=== PATIENT | female | born 1955 | race Caucasian/White ===

== ENCOUNTER 2020-06-23 18:02 | Emergency (ER) | payer MEDICARE, MEDICAID, SELFPAY ==
[2020-06-23 18:47] VITALS: BP 154/66; PULSE 76; RESP 16; TEMP 37.1; O2SAT 98; BMI 30.2
--- NOTE | 2020-06-23 19:07 | ED.WOUNDLAC ---
HPI - Wound/Laceration General Chief Complaint: Wound/Laceration Stated Complaint: finger laceration Time Seen by Provider: 06/23/20 19:00 Source: patient Mode of arrival: ambulatory Limitations: no limitations History of Present Illness HPI narrative: patient presents to ED for left index finger laceration due to a knife that occurred around 14:30 this afternoon. Patient states she is not up-to-date with tetanus. Patient denies any decreased movement of left index finger. Patient also denies any numbness/ tingling. Related Data Previous Rx's Medication Instructions Recorded clindamycin HCl 300 mg PO Q8H #30 cap 06/23/20 ibuprofen 400 mg PO Q6H PRN #28 tab 06/23/20 Allergies Allergy/AdvReac Type Severity Reaction Status Date / Time metformin [METFORMIN] Allergy Intermediate DIARRHEA, Unverified 05/03/20 16:12 NAUSEA, diarrhea, diarrhea Penicillins [PENICILLINS] Allergy Intermediate RASH Unverified 05/03/20 16:12 acetaminophen [Percocet] Allergy Unknown rash Verified 03/22/20 00:00 canagliflozin [Invokana] Allergy Unknown rash Verified 04/12/20 00:00 oxycodone Allergy Unknown rash Verified 04/12/20 00:00 penicillin V Allergy Unknown rash Unverified 04/12/20 00:00 Review of Systems Review of Systems: Yes all other systems are reviewed and are negative Constitutional: Constitutional: Reports as per HPI and Reports no additional constitutional complaints Eyes: Eyes: Reports as per HPI and Reports no additional eye complaints ENT: Reports system reviewed and no additional complaints, except as documented and Reports as per HPI Cardiovascular: Cardiovascular: Reports as per HPI and Reports no additional cardiovascular complaints Respiratory: Respiratory: Reports as per HPI and Reports no additional respiratory complaints Gastrointestinal: Gastrointestinal: Reports as per HPI and Reports no additional gastrointestinal complaints Genitourinary: Genitourinary: Reports no additional female genitourinary complaints and Reports as per HPI Musculoskeletal: Musculoskeletal: Reports no additional musculoskeletal complaints and Reports as per HPI Comments: Index laceration Neurologic: Reports system reviewed and no additional complaints, except as documented and Reports as per HPI Psychiatric: Psychiatric: Reports no additional psychiatric complaints and Reports as per HPI PMF Past Medical History Medical History (Updated 06/23/20 @ 19:17 by DANAE Stubbs) Anxiety Depression Diabetes HTN (hypertension) Social History Social History Alcohol intake: never Smoking Status: Current every day smoker Use of substances other than those prescribed or required for medical reasons: No Advance Directives: No Advance Directives Information Provided: Yes Physical Exam Vital Signs: Vital Signs: Last Vital Signs Temp 98.7 F 06/23/20 18:47 Pulse 76 06/23/20 18:47 Resp 16 06/23/20 18:47 BP 154/66 H 06/23/20 18:47 Pulse Ox 98 06/23/20 18:47 Body Mass Index 30.2 Const: General: cooperative, healthy appearing, comfortable, no acute distress, well developed, alert and awake Orientation/consciousness: patient oriented x3 HENMT: Head: Yes normal to inspection, Yes No palpable skull fracture present and Yes atraumatic Eyes: General: appearance normal, both eyes and all related structures Visual Stock: normal visual stock by confrontation Neck: Neck: Yes normal visual inspection and Yes full ROM Chest: Chest palpation & inspection: normal inspection of the chest, normal palpation of entire chest wall and no localized rib tenderness Resp: Effort & Inspection: normal respiratory effort and able to speak in complete sentences Cardio: Jugular venous distension: no JVD Heart sounds: S1 normal heart sound present and S2 normal heart sound present GI: Inspection: Yes normal to inspection and No abdominal wall ecchymosis : General: No CVA tenderness and Yes no CVA tenderness Back/Spine/Pelvis: Back: no CVA tenderness, No CVA tenderness and No back tenderness Skin: Trauma: laceration ( left index finger) Neuro: General: patient oriented x3, gait normal and CN's II-XI intact bilaterally Cranial nerves: Yes CN's II-XII intact bilaterally Extrem: Other: left index finger laceration on lateral aspect of finger. Laceration consist of skin in the middle denies that is friable and does not need to be repaired. Patient has complete flexion and extension of left index finger. Capillary refills intact. Radial pulse intact. Rest of fingers and upper extremity of left-sided motor/ neuro/ vascular exam is intact. No other signs of trauma on whole body. General: Yes normal to inspection and Yes full ROM Course Course Course Narrative: Patient will have tetanus and Motrin ordered. Laceration repair not indicated. Steri-Strips will be placed. Reevaluation(s) Reevaluation #1: Steri-Strips placed after wound was clean. Patient will be discharged with antibiotics due to her being diabetic to prevent infection. Time: 19:15 MDM - Wound/Laceration MDM Narrative Medical decision making narrative: laceration of left index finger. Negative any tendon injury. Negative for any nerve injury Discharge Plan Discharge Clinical Impression: Laceration Patient Disposition: Home, Self-Care Instructions: Laceration Without Closure (ED) Additional Instructions: return the ED for any swelling, redness, numbness/ tingling, inability to move finger, development of red streaks, bluish discoloration of finger, or any other concerning symptom. Prescriptions: New clindamycin HCl 300 mg capsule 300 mg PO Q8H Qty: 30 RF: 0 ibuprofen 400 mg tablet 400 mg PO Q6H PRN (Reason: pain) Qty: 28 RF: 0 Referrals: Esau Cuellar PA-C [Primary Care Provider] - 2 days (Left finger laceration. no repair indicated.) Interventions: ED Discharge Assessment Last Done: 06/23/20 19:55 Discharge Date/Time: 06/23/20 20:03 Print Language: Upper Sorbian
[2020-06-23] MEDS: Ibuprofen 800 MG TABLET PO (19:48)
== END 2020-06-23 20:03 | disposition home or self-care (01) ==
PROVIDERS: Emergency Provider Emergency Medicine; PCP Physician Assistant
DX: S61.211A Laceration without foreign body of left index finger without damage to nail, initial encounter (principal); S60.411A Abrasion of left index finger, initial encounter; M79.645 Pain in left finger(s); W26.0XXA Contact with knife, initial encounter; Y93.9 Activity, unspecified; Y99.9 Unspecified external cause status; Y92.000 Kitchen of unspecified non-institutional (private) residence as the place of occurrence of the external cause; F17.200 Nicotine dependence, unspecified, uncomplicated; Z71.6 Tobacco abuse counseling; Z79.899 Other long term (current) drug therapy; Z23 Encounter for immunization
CPT/HCPCS: 90471; 90715; 99284

== ENCOUNTER → 2020-07-18 09:50 | Outpatient (BNVA) | payer MEDICARE, MEDICAID, SELFPAY | PROVIDERS: PCP Physician Assistant; Referring Provider Physician Assistant; Visit Provider Internal Medicine Endocrinology, Diabetes & Metabolism | DX: Z13.89 Encounter for screening for other disorder (principal) | CPT/HCPCS: Q3014 ==

== ENCOUNTER 2020-08-03 10:01 | Day surgery (SDC) | payer MEDICARE, MEDICAID, SELFPAY ==
[2020-07-27 19:20] VITALS: BMI 29.6
--- NOTE | 2020-08-02 10:10 | P.CONAN_ITS ---
Documented by User: Lidia Harding 08/02/20 10:11 HPI - Anesthesia Eval Consult details Narrative: 65yo F for Genicular Nerve [facility]ulation [facility] Past Medical History Medical History Anxiety Arthritis Asthma Back pain Depression Diabetes Diabetes type 2, uncontrolled Dyslipidemia HTN (hypertension) Obesity (BMI 30-39.9) Vitamin D deficiency Surgical History Surgical History H/O left knee surgery H/O tubal ligation History of colonoscopy Social History Social History Alcohol intake: never Smoking Status: Current every day smoker Packs Per Day: 0.5 Cigarettes Per Day: 10.0 Years Smoked: 46 Smoked in Last 30 Days: Yes Patient Interested in Nicotine Replacement: No Patient Given Instructions on How to Stop Smoking: No (patient not interested) Advance Directives: Yes Advance Directives Information Provided: Yes Advance Directives on File: Yes Advance Directives Date on File: 09/18/17 Meds Allergies Allergy/AdvReac Type Severity Reaction Status Date / Time metformin [METFORMIN] Allergy Intermediate DIARRHEA, Verified 07/27/20 19:12 NAUSEA, diarrhea, diarrhea Penicillins [PENICILLINS] Allergy Intermediate RASH Verified 07/27/20 19:12 canagliflozin [Invokana] Allergy Unknown rash Verified 07/27/20 19:12 Home Medications Medication Instructions Recorded Confirmed Type clonazepam 0.5 mg tablet 0.5 mg PO BID 07/18/20 07/27/20 History escitalopram oxalate 20 mg tablet 20 mg PO DAILY 07/18/20 07/27/20 History hydroxyzine HCl 50 mg tablet 50 mg PO DAILY 07/18/20 07/27/20 History naproxen 500 mg tablet 500 mg PO BID PRN 07/18/20 07/27/20 History pantoprazole 20 mg tablet,delayed 20 mg PO DAILY 07/18/20 07/27/20 History release pen needle, diabetic 32 gauge x #50 ea 07/18/20 07/27/20 History trazodone 100 mg tablet 100 mg PO DAILY 07/18/20 07/27/20 History liraglutide [Victoza 2-Willy] 1.2 mg SUBCUT DAILY 07/27/20 07/27/20 History Exam Exam Date and Time: August 02, 2020 1010 Height,Weight and Vital Signs: Height 5 ft 2 in Weight 73.482 kg Assessment and Plan Assessment Anesthesia Assessment: Chart Reviewed Documented by User: Madeleine Perez 08/03/20 10:51 [facility] Past Medical History Medical History Anxiety Arthritis Asthma Back pain Depression Diabetes Diabetes type 2, uncontrolled Dyslipidemia HTN (hypertension) Obesity (BMI 30-39.9) Vitamin D deficiency Surgical History Surgical History H/O left knee surgery H/O tubal ligation History of colonoscopy Social History Social History Alcohol intake: never Smoking Status: Current every day smoker Packs Per Day: 0.5 Cigarettes Per Day: 10.0 Years Smoked: 46 Smoked in Last 30 Days: Yes Patient Interested in Nicotine Replacement: No Patient Given Instructions on How to Stop Smoking: No (patient not interested) Advance Directives: Yes Advance Directives Information Provided: Yes Advance Directives on File: Yes Advance Directives Date on File: 09/18/17 Meds Allergies Allergy/AdvReac Type Severity Reaction Status Date / Time metformin [METFORMIN] Allergy Intermediate DIARRHEA, Verified 07/27/20 19:12 NAUSEA, diarrhea, diarrhea Penicillins [PENICILLINS] Allergy Intermediate RASH Verified 07/27/20 19:12 canagliflozin [Invokana] Allergy Unknown rash Verified 07/27/20 19:12 Home Medications Medication Instructions Recorded Confirmed Type clonazepam 0.5 mg tablet 0.5 mg PO BID 07/18/20 07/27/20 History escitalopram oxalate 20 mg tablet 20 mg PO DAILY 07/18/20 07/27/20 History hydroxyzine HCl 50 mg tablet 50 mg PO DAILY 07/18/20 07/27/20 History naproxen 500 mg tablet 500 mg PO BID PRN 07/18/20 07/27/20 History pantoprazole 20 mg tablet,delayed 20 mg PO DAILY 07/18/20 07/27/20 History release pen needle, diabetic 32 gauge x #50 ea 07/18/20 07/27/20 History trazodone 100 mg tablet 100 mg PO DAILY 07/18/20 07/27/20 History liraglutide [Victoza 2-Willy] 1.2 mg SUBCUT DAILY 07/27/20 07/27/20 History Exam Airway Mallampati Class: II TM Dist: >3cm Neck ROM: Full Denture: Upper and Lower
--- NOTE | 2020-08-03 07:17 | PM.OP ---
Brief Operative Note Date of Service: 08/03/20 Pre-op diagnosis: knee osteoarthritis Post-op diagnosis: same Procedure: trial of peripheral nerve stimulation stimwave infrapatellar saphenous nerve Implants: temp implant of the stimwave trial lead. Surgeon: Ashok Monahan MD Anesthesia: MAC Estimated blood loss (mL): 1 Pathology: none sent Condition: stable Disposition: PACU
--- NOTE | 2020-08-03 07:18 | P.HPSUR_ITS ---
Pre-Procedural Eval Section A The patient is an INPATIENT: No The History & Physical has been completed within 30 days and I have reviewed it.: No Section B Chief Complaint: Osteoarthritis of Left Knee Details of Present Illness: knee osteoarthritis left Relevant Family History (Specify if Yes): No Relevant Social History: None Present Medications: None Medical History: No relevant PMH History of Previous Operations: Relevant previous surgery/procedure and date(s) Allergies: Allergies Allergy/AdvReac Type Severity Reaction Status Date / Time metformin [METFORMIN] Allergy Intermediate DIARRHEA, Verified 07/27/20 19:12 NAUSEA, diarrhea, diarrhea Penicillins [PENICILLINS] Allergy Intermediate RASH Verified 07/27/20 19:12 acetaminophen [Percocet] Allergy Unknown rash Verified 07/27/20 19:12 canagliflozin [Invokana] Allergy Unknown rash Verified 07/27/20 19:12 Review of Systems Sugical H&P ROS: Negative: Cardiovascular, Respiratory, Neurological, Psychiat sapna, Hem-Onc, Allergic/Immunologic, Gastrointestinal, Genitourinary, Musculoskeletal, Integumentary, Endocrine and Eyes/Ears/Nose/Throat and Yes, Specify: Constitution (obesity) Exam Surgical H&P Exam: Normal: HEENT, Normal: Heart, Normal: Lungs, Normal: Extremities, Normal: Abdomen, Normal: Skin and Normal: Neurological Plan Diagnosis/Plan: Unchanged I have reviewed the history and physical and performed a pertinent physical examination on my patient. No changes have occurred unless specified.
--- NOTE | 2020-08-03 07:39 | P.OP_ITS ---
Operative Note Operative Note Date of Service: 08/03/20 Narrative: The patient came to the operating room after obtaining inform consent. The consent was obtained delineating risks of bleeding, infection and allergic reactions. The patient recieve antibiotic approximately 30 minutes before the procedure. Time-out was performed delineating correct site, side, the nature of the procedure, patient's allergy, preoperative antibiotic. All operating room staff was participating in OR time-out procedure. The patient was positioned supine on OR table. ASA monitors were applied and the patient was sedated. Patient's entire left leg was prepped with ChloraPrep twice and draped with extremity drape with isolation applied to the foot. Sterilely draped C-arm was brought over operating field and the picture of the tibial bone was demonstrated on the screen. The point of interest was delineated as the transition zone from the medial margin of tibial diaphysis to methaphysis on the AP projection of the C-arm screen. 22g 3.5 inch needle was inserted through the skin after the wheal of loc al anesthetic was injected into the skin's projection of the target. The needle was advanced forward until it gently contacted the bone. The C-arm position was switched to the lateral view and the needle position was adjusted to be in the mid-shaft of the bone. after that the attention was concentrated on the mid-calf area where on the medial side of the calf the local anesthetic injection was mad e in the projection of the center of the diaphysis on AP view and mid-shaft of the diaphysis on the lateral view. A stephanie was made to the skin with 11 blase scalpel and through this stephanie 13 g introducer needle was inserted and advanced alongside of the bone's mid- shaft in cefalad direction until the introducer needle went into the contact with the 22 g 3.5 inch needle inserted previously. throught the introducer needle the stimulating electrode was inserted into the introducer needle and advanced further alongside the medial margin of the tibia on AP view. The care was taken to keep the electrode in the midshaft position. after the electrode was found to be in satisfactory position the 22G 3.5 inch needle was removed, the introducer needle was withdrawn with the electrode held in place under x-ray control. After that the antenna copper wire was inserted into the electrode. The sterie strips and mastisol were used to fix the wire to the skin. The care was taken to position of the external part of the electrode on the side the patient's medial calf in straight cefalad caudad direction and the knot was made at the distal part of the electrode fixing the copper wire inside the electrode. sterile dressing was applied and stimulating pad was applied over the electrode's outside part. .
[2020-08-03 10:09] VITALS: BMI 29.6
[2020-08-03 10:15] VITALS: BP 152/77; PULSE 81; RESP 16; TEMP 36.7; O2SAT 98
[2020-08-03] MEDS: Lactated Ringers 1,000 ML 100 ML IVCONT (10:24)
[2020-08-03 10:30] LABS: Glucose, Whole Blood 98 mg/dL (60-115)
[2020-08-03] MEDS: Clindamycin Phosphate/D5W 900 MG/50 ML PIGGYBACK 50 MG IV (11:03)
--- NOTE | 2020-08-03 11:09 | FL_ITS ---
EXAMINATION: XR FLUOROSCOPY WITH IMAGES CLINICAL INFORMATION: Genicular nerve stimulation trial. COMPARISON: None. TECHNIQUE: Fluoroscopy performed by Dr. Ashok Monahan. Fluoroscopy time: 0.4 minutes DAP: 1.63 mGycm2 Images: 3 FINDINGS: 3 images demonstrate a needle and the catheter on the medial aspect of the left tibial metaphyseal region. FL/FL guidance in OR IMPRESSION: Fluoroscopy and spot films provided during a trial of genicular nerve stimulation.
[2020-08-03 12:31] VITALS: BP 115/70; PULSE 96; RESP 14; TEMP 36.6; O2SAT 100
[2020-08-03 12:46] VITALS: BP 150/72; PULSE 93; RESP 18; O2SAT 97
--- NOTE | 2020-08-03 13:19 | HO.POSTANES ---
Post Anesthesia Evaluation Post Anesthesia Evaluation Vital Signs: Vital Signs Temp Pulse Resp BP Pulse Ox 08/03/20 12:46 97.9 F 93 18 150/72 H 97 08/03/20 12:31 97.9 F 96 14 115/70 100 08/03/20 10:15 98.0 F 81 16 152/77 H 98 Anesthesia: Monitored Mental Status: Awake Pain Control: Satisfactory Nausea/Vomiting: None Hydration: Adequate Anesthesia-Related Issues: No Anes. Related Issues
== END 2020-08-03 13:23 | disposition home or self-care (01) ==
PROVIDERS: PCP Physician Assistant; Visit Provider Anesthesiology
PROC: (CPT 64555; principal; 2020-08-03 12:00)
DX: M17.12 Unilateral primary osteoarthritis, left knee (principal); G89.4 Chronic pain syndrome; M25.562 Pain in left knee; Z96.652 Presence of left artificial knee joint; F32.9 Major depressive disorder, single episode, unspecified; J45.909 Unspecified asthma, uncomplicated; E11.65 Type 2 diabetes mellitus with hyperglycemia; I12.9 Hypertensive chronic kidney disease with stage 1 through stage 4 chronic kidney disease, or unspecified chronic kidney disease; E11.22 Type 2 diabetes mellitus with diabetic chronic kidney disease; N18.9 Chronic kidney disease, unspecified; F17.210 Nicotine dependence, cigarettes, uncomplicated; Z79.84 Long term (current) use of oral hypoglycemic drugs; Z79.899 Other long term (current) drug therapy; Z88.1 Allergy status to other antibiotic agents; Z88.8 Allergy status to other drugs, medicaments and biological substances
CPT/HCPCS: 64555; 82947; C1755; C1897; J2250; J3010

== ENCOUNTER → 2020-08-08 09:20 | Outpatient (BNVA) | payer MEDICARE, MEDICAID, SELFPAY | PROVIDERS: PCP Physician Assistant; Visit Provider Anesthesiology | DX: T84.84XD Pain due to internal orthopedic prosthetic devices, implants and grafts, subsequent encounter (principal); G89.29 Other chronic pain; Z96.652 Presence of left artificial knee joint; E11.65 Type 2 diabetes mellitus with hyperglycemia; E55.9 Vitamin D deficiency, unspecified | CPT/HCPCS: 36415; 80053; 80061; 82043; 82306; 82607; 82985; 83036; 83721; 85027; 99212 ==

== ENCOUNTER 2020-08-08 09:52 | Outpatient (REF) | payer MEDICARE, MEDICAID, SELFPAY ==
[2020-08-08 13:33] LABS: Hematocrit 41.9 % (37-47); Hemoglobin 13.8 g/dl (12.0-16.0); Mean Corpuscular HGB Conc 32.9 g/dl (31.0-35.0); Mean Corpuscular Hemoglobin 29.7 pg (27.0-33.0); Mean Corpuscular Volume 90.3 fL (80-98); Mean Platelet Volume 11.7 fL (9.4-12.3); Platelet Count 227 X10*3/uL (160-400); Red Blood Count 4.64 X10*6/uL (4.20-5.50); Red Cell Distribution Width 12.6 % (11.0-16.0); White Blood Count 10.3 X10*3/uL (4.8-10.8)
[2020-08-08 13:40] LABS: Estimated Average Glucose 120 mg/dL; Hemoglobin A1c % 5.8 %
[2020-08-08 14:33] LABS: Alanine Aminotransferase 22 U/L (0-31); Albumin Level 4.3 g/dL (3.5-5.0); Alkaline Phosphatase 125 U/L (39-117); Anion Gap 15 (12-20); Aspartate Amino Transferase 20 U/L (5-31); Bilirubin Total 0.5 mg/dL (0.0-1.0); Blood Urea Nitrogen 12 mg/dL (9-16); Calcium 9.4 mg/dL (8.4-10.2); Carbon Dioxide 24 mmol/L (22-29); Chloride 105 mmol/L (96-108); Cholesterol 139 mg/dL; Estimated Glomerular Filt Rate 47; Glucose Fasting 107 mg/dL (60-99); HDL Cholesterol 39 mg/dL; LDL Cholesterol Calculated 76 mg/dl; Potassium 3.8 mmol/l (3.3-5.1); Sodium 140 mmol/L (135-145); Total Protein 7.1 g/dL (6.5-8.0); Triglycerides 124 mg/dL
[2020-08-08 14:42] LABS: Vitamin B12 495 pg/mL (200-900)
[2020-08-08 14:51] LABS: Creatinine Urine 322.46 mg/dL; Microalbum/Creatinine Ratio Ur 38.7 ug/mg cr
[2020-08-08 14:58] LABS: Vitamin D 25-OH Total 60.1 ng/mL (>30)
[2020-08-09 11:18] LABS: LDL Cholesterol Direct 82 mg/dL (<100)
[2020-08-17 06:18] LABS: Fructosamine 240 umol/L (205-285)
== END 2020-08-08 09:53 | disposition home or self-care (01) ==
LOC: HO.10HDL 09:52
PROVIDERS: Visit Provider Internal Medicine Endocrinology, Diabetes & Metabolism
DX: Z13.89 Encounter for screening for other disorder (principal)
CPT/HCPCS: 36415; 80053; 80061; 82043; 82306; 82607; 82985; 83036; 83721; 85027

== ENCOUNTER 2020-11-09 06:14 | Day surgery (SDC) | payer MEDICARE, MEDICAID, SELFPAY ==
[2020-11-02 11:49] VITALS: BMI 31.1
--- NOTE | 2020-11-08 12:10 | HO.ANESPROP2 ---
Documented by User: Lidia Barnettney 11/08/20 12:11 HPI - Anesthesia Eval Consult details Narrative: 65yo F for Left Infrapatellar Saphenous Nerve Stimulation Implant s/p Genicular Nerve Stim Trial with MAC 07/2020 [facility] Active Problems Active Problems: All Active Problems (Updated 11/02/20 @ 11:48 by Niki Ibarra) EVA (generalized anxiety disorder) (Acute) Smoking (Acute) Screening for colon cancer (Acute) Contact dermatitis (Acute) Allergic reaction (Acute) Chronic 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 (Acute) Chronic pain of left knee (Acute) Osteoarthritis of knees, bilateral (Acute) Obesity (BMI 30-39.9) (Acute) Vitamin D deficiency (Acute) HTN (hypertension) (Acute) Dyslipidemia (Acute) Diabetes type 2, uncontrolled (Acute) Past Medical History Medical History Anxiety Arthritis Asthma Back pain Chronic 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 Chronic pain of left knee Depression Diabetes type 2, uncontrolled Dyslipidemia HTN (hypertension) Obesity (BMI 30-39.9) Osteoarthritis of knees, bilateral Vitamin D deficiency Family History Family History Father Automobile accident Mother Hypertension Hyperlipidemia Diabetes Brother Diabetes Hyperlipidemia Sister Diabetes Hyperlipidemia Surgical History Surgical History H/O tubal ligation History of colonoscopy History of ear surgery History of hysterectomy History of surgery on wrist S/P total knee arthroplasty Social History Social History Alcohol intake: never Smoking Status: Current every day smoker Packs Per Day: 0.5 Cigarettes Per Day: 10 Years Smoked: 49 Use of substances other than those prescribed or required for medical reasons: No Advance Directives: No Advance Directives Information Provided: No Advance Directives on File: No Advance Directives Date on File: 09/18/17 Meds Allergies Allergy/AdvReac Type Severity Reaction Status Date / Time metformin [METFORMIN] Allergy Intermediate DIARRHEA, Verified 11/02/20 11:40 NAUSEA Penicillins [PENICILLINS] Allergy Intermediate RASH Verified 11/02/20 11:40 canagliflozin [Invokana] Allergy Unknown rash Verified 11/02/20 11:40 oxycodone Allergy Unknown Verified 11/08/20 11:43 Home Medications Medication Instructions Recorded Confirmed Last Taken Type clonazepam 0.5 mg tablet 0.5 mg PO BID 07/18/20 11/02/20 08/03/20 History escitalopram oxalate 20 mg tablet 20 mg PO DAILY 07/18/20 11/02/20 08/03/20 History pen needle, diabetic 32 gauge x #50 ea 07/18/20 09/06/20 08/03/20 History 5/32 trazodone 100 mg tablet 100 mg PO BEDTIME 07/18/20 11/02/20 08/03/20 History atorvastatin 40 mg PO BEDTIME 11/02/20 11/02/20 08/03/20 History liraglutide [Victoza 3-Willy] 1 mg SUBCUT DAILY 11/02/20 11/02/20 Unknown History naproxen 500 mg PO BID PRN 11/02/20 11/02/20 Unknown History blood sugar diagnostic #10 ea 11/08/20 Unknown History Exam Exam Date and Time: November 08, 2020 1210 Height,Weight and Vital Signs: Height 5 ft 2 in Weight 77.111 kg Pertinent Lab Results Pertinent Lab Results: Laboratory Tests 08/08/20 08/08/20 10:00 10:00 WBC 10.3 Hgb 13.8 Hct 41.9 Plt Count 227 Sodium 140 Potassium 3.8 Chloride 105 Carbon Dioxide 24 BUN 12 Creatinine 1.15 Assessment and Plan Assessment Anesthesia Assessment: Chart Reviewed Documented by User: Kevin Grigsby MD 11/09/20 07:31 [facility] Past Medical History Medical History Anxiety Arthritis Asthma Back pain Chronic 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 Chronic pain of left knee Depression Diabetes type 2, uncontrolled Dyslipidemia HTN (hypertension) Obesity (BMI 30-39.9) Osteoarthritis of knees, bilateral Vitamin D deficiency Family History Family History Father Automobile accident Mother Hypertension Hyperlipidemia Diabetes Brother Diabetes Hyperlipidemia Sister Diabetes Hyperlipidemia Surgical History Surgical History H/O tubal ligation History of colonoscopy History of ear surgery History of hysterectomy History of surgery on wrist S/P total knee arthroplasty Social History Social History Alcohol intake: never Smoking Status: Current every day smoker Packs Per Day: 0.5 Cigarettes Per Day: 10 Years Smoked: 49 Use of substances other than those prescribed or required for medical reasons: No Advance Directives: No Advance Directives Information Provided: No Advance Directives on File: No Advance Directives Date on File: 09/18/17 Meds Allergies Allergy/AdvReac Type Severity Reaction Status Date / Time metformin [METFORMIN] Allergy Intermediate DIARRHEA, Verified 11/02/20 11:40 NAUSEA Penicillins [PENICILLINS] Allergy Intermediate RASH Verified 11/02/20 11:40 canagliflozin [Invokana] Allergy Unknown rash Verified 11/02/20 11:40 oxycodone Allergy Unknown Verified 11/08/20 11:43 Home Medications Medication Instructions Recorded Confirmed Last Taken Type clonazepam 0.5 mg tablet 0.5 mg PO BID 07/18/20 11/02/20 08/03/20 History escitalopram oxalate 20 mg tablet 20 mg PO DAILY 07/18/20 11/02/20 08/03/20 History pen needle, diabetic 32 gauge x #50 ea 07/18/20 09/06/20 08/03/20 History trazodone 100 mg tablet 100 mg PO BEDTIME 07/18/20 11/02/20 08/03/20 History atorvastatin 40 mg PO BEDTIME 11/02/20 11/02/20 08/03/20 History liraglutide [Victoza 3-Willy] 1 mg SUBCUT DAILY 11/02/20 11/02/20 Unknown History naproxen 500 mg PO BID PRN 11/02/20 11/02/20 Unknown History blood sugar diagnostic #10 ea 11/08/20 Unknown History Exam Airway Mallampati Class: III TM Dist: >3cm Neck ROM: Full Loose/Missing/Broken Teeth: No Heart: RRR Lungs: NL Assessment and Plan Assessment Anesthesia Assessment: Anesthesia Plan Discussed and Chart Reviewed Final Anesthetic Review NPO: Yes ASA Class: III Final Preanesthetic Review: No Changes in Pt Med Stat, Meds/Allgs Chart Reviewed, Consent Obtained/Reviewed and Anes Risks/Benef Reviewed Patient Risk: Intermediate Procedure Risk: Low Anesthetic Plan Anesthetic Plan: MAC: Disposition: Standard PACU
--- NOTE | ~2020-11-09 | FL_ITS ---
EXAMINATION: XR FLUOROSCOPY WITH IMAGES CLINICAL INFORMATION: Left knee stimulator trial COMPARISON: Radiographs left knee 04/04/2019, radiographs left ankle 02/25/2018 TECHNIQUE: Fluoroscopy performed by Dr. Ashok Monahan. Fluoroscopy time: 0.4 minutes DAP: 1.22 Gycm2 Images: 1 FINDINGS: There may be some mild medial bowing of the distal fibular shaft. There is no visible fracture. Electrode lead seen overlying the medial soft tissues. FL/FL guidance in OR IMPRESSION: Fluoroscopy for pain management procedure.
[2020-11-09 06:22] VITALS: BP 131/68; PULSE 79; RESP 18; TEMP 36.6; O2SAT 99
[2020-11-09 06:23] LABS: Glucose, Whole Blood 130 mg/dL (60-115)
[2020-11-09] MEDS: Lactated Ringers 1,000 ML 100 ML IVCONT (06:46)
--- NOTE | 2020-11-09 07:30 | PM.OP ---
Brief Operative Note Date of Service: 11/09/20 Pre-op diagnosis: Artificial knee left, intractable knee pain in the left knee. Post-op diagnosis: same Procedure: Implantation of the stim wave peripheral nerve stimulation device in left infrapatellar saphenous nerve position Implants: Stim wave implant as above Surgeon: Ashok Monahan MD Anesthesia: MAC Estimated blood loss (mL): 10 Pathology: none sent Condition: stable Disposition: PACU
--- NOTE | 2020-11-09 07:32 | MHC.SHP ---
Pre-Procedural Eval Section B Chief Complaint: Presence of Left Artificial Knee Joint, Knee Pain Details of Present Illness: as above Relevant Family History (Specify if Yes): No Relevant Social History: None Present Medications: see Short Stay Collaborative assessment Medical History: No relevant PMH History of Previous Operations: Relevant previous surgery/procedure and date(s) Allergies: Allergies Allergy/AdvReac Type Severity Reaction Status Date / Time metformin [METFORMIN] Allergy Intermediate DIARRHEA, Verified 11/02/20 11:40 NAUSEA Penicillins [PENICILLINS] Allergy Intermediate RASH Verified 11/02/20 11:40 canagliflozin [Invokana] Allergy Unknown rash Verified 11/02/20 11:40 oxycodone Allergy Unknown Verified 11/08/20 11:43 Review of Systems Sugical H&P ROS: Negative: Constitution, Cardiovascular, Respiratory, Neurological, Psychiatric, Hem-Onc, Allergic/Immunologic, Gastrointestinal, Genitourinary, Musculoskeletal, Integumentary, Endocrine and Eyes/Ears/Nose/Throat Exam Surgical H&P Exam: Normal: HEENT, Normal: Heart, Normal: Lungs, Normal: Extremities, Normal: Abdomen, Normal: Skin and Normal: Neurological Plan Diagnosis/Plan: Unchanged I have reviewed the history and physical and performed a pertinent physical examination on my patient. No changes have occurred unless specified.
--- NOTE | 2020-11-09 09:08 | PM.OP ---
Brief Operative Note Date of Service: 11/09/20 Pre-op diagnosis: artificial knee left, intractable left knee pain. Post-op diagnosis: same Procedure: Implantation of the infrapatellar saphenous peripheral nerve stimulation device stim wave. Implants: Stim wave stimulating wire and plastic lead incasing it Surgeon: Ashok Monahan MD Anesthesia: MAC Estimated blood loss (mL): 10 Condition: stable Disposition: PACU
[2020-11-09 09:10] VITALS: BP 145/77; PULSE 75; RESP 16; TEMP 36.6; O2SAT 97
[2020-11-09 09:25] VITALS: BP 138/66; PULSE 67; RESP 16; TEMP 36.6; O2SAT 99
--- NOTE | 2020-11-12 08:04 | P.OP_ITS ---
Operative Note Operative Note Date of Service: 11/09/20 Narrative: Genicular nerve stimulation implant infrapatellar saphenous nerve stimulation. After obtaining informed consent patient was brought to the operating room, she was positioned supine on the operating table, [employer] monitors were applied and patient was deeply sedated. Time-out was performed delineating correct site, side, the nature of the procedure, patient's allergy, preoperative antibiotic. All operating room staff was participating in OR time-out procedure. The patient received clindamycin 900 mg intravenously 30 minutes before the procedure The patient was positioned supine on the operating table with left leg elevated on a gel bin. After appropriate level of sedation was obtained the patient's entire leg from the mid thigh all the way down to the toes was prepped with Chl oraPrep twice. The foot was protected with the sterile foot cover and after that fenestrated drape was applied to the leg. attention was concentrated on the left INFRAPATELLAR SAPHENOUS NERVE. Sterilely draped C-arm was brought over the operating field and sq picture of tibial bone was demonstrated on the screen. The point of interest was delineated as the connection between metaphysis and diaphysis of the medial site of the tibial bone. 22 gauge 3-1/2 inch needle was driven to the point of interest where the advancement of the medial line of the shaft of the tibial bone changed its direction and formed an angle. The position of the needle in the projection of mid shaft of the bone was verified on the lateral view. 8 cm below that needle in the projection of the medial shaft of the tibial bone local anesthetic was injected bupivacaine 0.5 % mixture with lidocaine 2% into the skin. 2 cm incision with 11 blade scalpel was made in the local anesthetic infiltrate. The insertion of the 14 gauge introducer was performed through the skin incision and advanced cephalad toward the projection of the 22 gauge needle in the plane corresponding to mid shaft of the tibial bone on lateral view and following silhouette of the medial tibial bone on the AP view. When the introducer reached the vicinity of 22 gauge needle guitar wire was inserted into the intro ducer needle and spread on anterior posterior and lateral views alongside the medial border of the tibial bone on anterior posterior view and in the projection of the mid shaft of the bone on the lateral view. Upon completion of the advancement of the guitar wire it was removed and permanent stimulator catheter was inserted and advanced in the same fashion. When the catheter reached adequate position following curvature of the medial metaphysis of the tibial bone on anterior posterior view and position in midline of the shaft of the tibial bone in lateral view the introducer was gently removed and thins of the stimulating catheter were freed. Another 8 cm below the 1st incision on the medial surface of the left lower leg above medial malleolar area another local anesthetic infiltrate was made and 3 cm incision was performed. The introducer was reassembled, inserted into the wound and advanced again cephalad in the projection of the mid shaft of the tibial bone until it reached the 1st incision. Care was taken to make sure that 1st and 2nd hernandez of the stimulating catheter were he had been under the skin. The copper stimulating wire was inserted into the catheter and a tie was made below the level of the 2nd marked. After that a coil was done below the knot in caudal was fixed with 2 0 silk sutures. The coil was imbedded under the skin and subcutaneous tissues and both wounds were irrigated with vancomycin containing irrigation solution. The wounds were closed using 3-0 Polysorb sutures and adriano were applied to the level of the skin. Sterile dressing was applied to both wounds and stimulating pad was applied to the area of the antenna of the device. The patient was awaken and moved outside of the operating room to the recovery room where she recovered uneventfully.
== END 2020-11-09 10:32 ==
LOC: HO.SSS 06:14
PROVIDERS: PCP Physician Assistant; Visit Provider Anesthesiology
PROC: (CPT 64555; principal; 2020-11-09 07:30)
DX: M25.562 Pain in left knee (principal); G89.4 Chronic pain syndrome; Z96.652 Presence of left artificial knee joint; J45.909 Unspecified asthma, uncomplicated; E11.9 Type 2 diabetes mellitus without complications; I10 Essential (primary) hypertension; Z79.84 Long term (current) use of oral hypoglycemic drugs; Z79.899 Other long term (current) drug therapy; Z88.0 Allergy status to penicillin; Z88.8 Allergy status to other drugs, medicaments and biological substances
CPT/HCPCS: 64555; 82947; C1816; C1897; J3010; J3370

== ENCOUNTER → 2020-11-15 11:12 | Outpatient (BNVA) | payer MEDICARE, MEDICAID, SELFPAY | PROVIDERS: PCP Physician Assistant; Visit Provider Anesthesiology | DX: M17.11 Unilateral primary osteoarthritis, right knee (principal); T84.84XA Pain due to internal orthopedic prosthetic devices, implants and grafts, initial encounter; G89.29 Other chronic pain; Z96.652 Presence of left artificial knee joint; Z79.899 Other long term (current) drug therapy | CPT/HCPCS: 99212 ==

== ENCOUNTER → 2020-11-22 11:58 | Outpatient (BNVA) | payer MEDICARE, MEDICAID, SELFPAY | PROVIDERS: PCP Physician Assistant; Visit Provider Anesthesiology | DX: M17.0 Bilateral primary osteoarthritis of knee (principal); M25.562 Pain in left knee; G89.29 Other chronic pain; Z96.652 Presence of left artificial knee joint | CPT/HCPCS: 99212 ==

== ENCOUNTER → 2020-11-29 11:33 | Outpatient (BNVA) | payer MEDICARE, MEDICAID, SELFPAY | PROVIDERS: PCP Physician Assistant; Visit Provider Anesthesiology | DX: M17.11 Unilateral primary osteoarthritis, right knee (principal); T84.84XA Pain due to internal orthopedic prosthetic devices, implants and grafts, initial encounter; G89.29 Other chronic pain; Z96.652 Presence of left artificial knee joint; Z79.899 Other long term (current) drug therapy | CPT/HCPCS: 99212 ==

== ENCOUNTER 2021-01-23 12:46 | Outpatient (REF) | payer MEDICARE, MEDICAID, SELFPAY ==
[2021-01-23 14:37] LABS: Hematocrit 37.3 % (37-47); Mean Corpuscular HGB Conc 32.2 g/dl (31.0-35.0); Mean Corpuscular Hemoglobin 28.7 pg (27.0-33.0); Mean Corpuscular Volume 89.2 fL (80-98); Mean Platelet Volume 10.3 fL (9.4-12.3); Platelet Count 233 X10*3/uL (160-400); Red Blood Count 4.18 X10*6/uL (4.20-5.50); Red Cell Distribution Width 13.3 % (11.0-16.0); White Blood Count 11.6 X10*3/uL (4.8-10.8)
[2021-01-23 16:10] LABS: Alanine Aminotransferase 14 U/L (0-31); Alkaline Phosphatase 123 U/L (39-117); Anion Gap 13 (12-20); Aspartate Amino Transferase 18 U/L (5-31); Bilirubin Total 0.4 mg/dL (0.0-1.0); Blood Urea Nitrogen 8 mg/dL (9-16); Calcium 9.7 mg/dL (8.4-10.2); Carbon Dioxide 28 mmol/L (22-29); Chloride 105 mmol/L (96-108); Cholesterol 124 mg/dL; Estimated Glomerular Filt Rate 54; Glucose Fasting 98 mg/dL (60-99); HDL Cholesterol 39 mg/dL; LDL Cholesterol Calculated 68 mg/dl; Potassium 4.9 mmol/L (3.3-5.1); Sodium 141 mmol/L (135-145); Total Protein 6.7 g/dL (6.5-8.0); Triglycerides 88 mg/dL
[2021-01-23 16:32] LABS: TSH reflex Free T4 0.29 uIU/mL (0.32-4.0)
[2021-01-23 17:02] LABS: Creatinine Urine 51.13 mg/dL; Microalbumin Urine < 5.0 mg/L
[2021-01-23 17:30] LABS: Free T4 (Free Thyroxine) 1.06 ng/dL (0.71-1.85)
[2021-01-24 08:42] LABS: LDL Cholesterol Direct 68 mg/dL (<100)
== END 2021-01-23 12:47 | disposition home or self-care (01) ==
LOC: HO.LAB 12:46
PROVIDERS: Absent Provider Physician Assistant; PCP Physician Assistant; Visit Provider Internal Medicine Endocrinology, Diabetes & Metabolism
DX: E11.65 Type 2 diabetes mellitus with hyperglycemia (principal); E78.5 Hyperlipidemia, unspecified; E55.9 Vitamin D deficiency, unspecified; E66.9 Obesity, unspecified; Z79.899 Other long term (current) drug therapy
CPT/HCPCS: 36415; 80053; 80061; 82043; 82947; 83721; 84439; 84443; 85027; 99212

== ENCOUNTER 2021-01-31 10:00 | Outpatient (REF) | payer MEDICARE, MEDICAID, SELFPAY ==
[2021-01-31 11:28] LABS: Free T4 (Free Thyroxine) 0.99 ng/dL (0.71-1.85); Thyroid Stimulating Hormone 0.61 uIU/mL (0.32-4.0)
== END 2021-01-31 10:01 | disposition home or self-care (01) ==
LOC: HO.LAB 10:00
PROVIDERS: PCP Physician Assistant; Visit Provider Internal Medicine Endocrinology, Diabetes & Metabolism
DX: E66.9 Obesity, unspecified (principal)
CPT/HCPCS: 36415; 84439; 84443

== ENCOUNTER 2021-05-30 11:20 | Outpatient (REF) | payer MEDICARE, MEDICAID, SELFPAY ==
--- NOTE | ~2021-05-30 | MM_ITS ---
EXAMINATION: MM SCREENING DIGITAL BREAST TOMOSYNTHESIS, BILATERAL CLINICAL INFORMATION: Screening. Asymptomatic. The lifetime risk of breast cancer based on the Tyrer-Cuzick Model is 6%. COMPARISON: Mammography: 03/21/2020, 06/17/2018, 06/05/2016 TECHNIQUE: Digital breast tomosynthesis is performed in both the craniocaudal and mediolateral oblique views along with computer-aided detection (CAD). Synthesized 2D images are generated from the tomosynthesis. FINDINGS: There are scattered areas of fibroglandular density (ACR BI-RADS breast composition Category b). There are no significant masses, abnormal calcifications, or other abnormalities. Parenchymal pattern is similar to prior studies. The axilla and skin contours are unremarkable. No significant changes. MM/MM tomosynthesis screening BI IMPRESSION: No mammographic evidence of malignancy. ASSESSMENT: BI-RADS 1: Negative RECOMMENDATION: Routine annual mammography screening. This patient's information was entered into a reminder system with a target due date for their next mammogram.
== END 2021-05-30 11:21 | disposition home or self-care (01) ==
LOC: HO.MAMMO 11:20
PROVIDERS: PCP Physician Assistant; Visit Provider Physician Assistant
DX: Z12.31 Encounter for screening mammogram for malignant neoplasm of breast (principal)
CPT/HCPCS: 77063; 77067

== ENCOUNTER 2021-07-01 10:16 | Outpatient (REF) | payer MEDICARE, MEDICAID, SELFPAY ==
[2021-07-01 11:52] LABS: Hematocrit 41.7 % (37.0-47.0); Hemoglobin 13.9 g/dl (12.0-16.0); Mean Corpuscular HGB Conc 33.3 g/dl (31.0-35.0); Mean Corpuscular Hemoglobin 29.3 pg (27.0-33.0); Mean Platelet Volume 11.1 fL (9.4-12.3); Platelet Count 227 X10*3/uL (160-400); Red Blood Count 4.74 X10*6/uL (4.20-5.50); Red Cell Distribution Width 13.8 % (11.0-16.0); White Blood Count 12.2 X10*3/uL (4.8-10.8)
[2021-07-01 12:10] LABS: Alanine Aminotransferase 23 U/L (0-31); Albumin Level 4.2 g/dL (3.5-5.0); Alkaline Phosphatase 126 U/L (39-117); Anion Gap 13 (12-20); Aspartate Amino Transferase 19 U/L (5-31); Bilirubin Total 0.5 mg/dL (0.0-1.0); Blood Urea Nitrogen 12 mg/dL (9-16); Calcium 9.9 mg/dL (8.4-10.2); Carbon Dioxide 28 mmol/L (22-29); Chloride 103 mmol/L (96-108); Cholesterol 132 mg/dL; Estimated Glomerular Filt Rate 52; Glucose Fasting 129 mg/dL (60-99); HDL Cholesterol 37 mg/dL; LDL Cholesterol Calculated 54 mg/dl; Potassium 4.2 mmol/L (3.3-5.1); Sodium 140 mmol/L (135-145); Total Protein 7.2 g/dL (6.5-8.0); Triglycerides 206 mg/dL
[2021-07-01 12:39] LABS: Creatinine Urine 181.62 mg/dL; Microalbum/Creatinine Ratio Ur 15.9 ug/mg cr
== END 2021-07-01 10:17 | disposition home or self-care (01) ==
LOC: HO.HMGCLDS 10:16
PROVIDERS: PCP Physician Assistant; Visit Provider Physician Assistant
DX: I10 Essential (primary) hypertension (principal); E11.65 Type 2 diabetes mellitus with hyperglycemia
CPT/HCPCS: 36415; 80053; 80061; 82043; 85027

== ENCOUNTER 2021-07-02 10:45 | Outpatient (REF) | payer MEDICARE, MEDICAID, SELFPAY ==
[2021-07-02 13:56] LABS: MANUAL DIFF FLAG NO
[2021-07-02 14:10] LABS: Basophils Absolute Auto 0.1 X10*3/uL (0.0-0.2); Basophils Percent Auto 0.5 % (0-2); Eosinophils Absolute Auto 0.2 X10*3/uL (0.0-0.4); Eosinophils Percent Auto 1.6 % (0-4); Hematocrit 42.4 % (37.0-47.0); Hemoglobin 13.9 g/dl (12.0-16.0); Imm Gran Abs Auto 0.05 X10*3/uL (0.00-0.03); Imm Gran Pct Auto 0.5 % (0.0-0.4); Lymphocytes Absolute Auto 3.6 X10*3/uL (1.2-4.9); Lymphocytes Percent Auto 33.6 % (20-40); Mean Corpuscular HGB Conc 32.8 g/dl (31.0-35.0); Mean Corpuscular Hemoglobin 28.8 pg (27.0-33.0); Mean Corpuscular Volume 87.8 fL (80.0-98.0); Mean Platelet Volume 11.4 fL (9.4-12.3); Monocytes Absolute Auto 0.7 X10*3/uL (0.1-1.2); Monocytes Percent Auto 6.8 % (2-11); Neutrophils Absolute Auto 6.2 x10*3/uL (2.0-8.3); Platelet Count 236 X10*3/uL (160-400); Red Blood Count 4.83 X10*6/uL (4.20-5.50); Red Cell Distribution Width 13.8 % (11.0-16.0); White Blood Count 10.8 X10*3/uL (4.8-10.8)
[2021-07-02 14:17] LABS: Appearance Urine HAZY; Color Urine YELLOW; Glucose Urine UA NEG (NEG); Leukocyte Esterase Urine NEG (NEG); Nitrite Urine NEG (NEG); Specific Gravity - Urine 1.025 (1.005-1.025); UACC Culture Trigger NO; Urine Blood NEG (NEG); Urine Ketones 5 MG/DL (NEG); Urine Protein 2+ MG/DL (NEG-TRACE)
[2021-07-02 14:33] LABS: Calcium Oxalate Crystals Urine 2+ /LPF; Hyaline Casts Urine 0-2 /LPF; Squamous Epithelial Cell Urine 1+ /LPF
[2021-07-02 14:34] LABS: Bacteria Urine 1+ /LPF; RBC Urine 0-2 /HPF (0); WBC Urine 0 /HPF (0-4)
[2021-07-02 14:36] LABS: Alanine Aminotransferase 24 U/L (0-31); Aspartate Amino Transferase 21 U/L (5-31); Estimated Glomerular Filt Rate 46
== END 2021-07-02 10:46 | disposition home or self-care (01) ==
LOC: HO.HMGCLDS 10:45
PROVIDERS: PCP Physician Assistant; Visit Provider Internal Medicine Rheumatology
DX: M54.2 Cervicalgia (principal); M25.50 Pain in unspecified joint
CPT/HCPCS: 36415; 81001; 81003; 82565; 84450; 84460; 85025

== ENCOUNTER → 2021-07-29 10:40 | Outpatient (BNVA) | payer MEDICARE, MEDICAID, SELFPAY | PROVIDERS: PCP Physician Assistant; Visit Provider Anesthesiology | DX: M17.0 Bilateral primary osteoarthritis of knee (principal); M25.562 Pain in left knee; G89.29 Other chronic pain; Z96.652 Presence of left artificial knee joint | CPT/HCPCS: Q3014 ==

== ENCOUNTER → 2021-08-02 12:32 | Outpatient (BNVA) | payer MEDICARE, MEDICAID, SELFPAY | PROVIDERS: PCP Physician Assistant; Visit Provider Nurse Practitioner Family ==

== ENCOUNTER 2021-08-23 13:00 | Outpatient (RCR) | payer OTHER, MEDICAID, SELFPAY | END 2021-10-11 08:01 | disposition home or self-care (01) | LOC: HO.PTCHIC 13:00 | PROVIDERS: PCP Physician Assistant; Visit Provider Internal Medicine Rheumatology | DX: M50.30 Other cervical disc degeneration, unspecified cervical region (principal) | CPT/HCPCS: 97110; 97140; 97161 ==

== ENCOUNTER → 2021-11-13 12:35 | Outpatient (BNVA) | payer OTHER, MEDICAID, SELFPAY | PROVIDERS: PCP Physician Assistant; Visit Provider Anesthesiology | DX: M17.0 Bilateral primary osteoarthritis of knee (principal); M25.562 Pain in left knee; M89.29 Other disorders of bone development and growth, multiple sites; Z96.652 Presence of left artificial knee joint | CPT/HCPCS: 99212 ==

== ENCOUNTER 2021-11-25 08:20 | Outpatient (REF) | payer OTHER, SELFPAY ==
[2021-11-25 11:49] LABS: Alanine Aminotransferase 18 U/L (0-31); Albumin Level 4.1 g/dL (3.5-5.0); Alkaline Phosphatase 110 U/L (39-117); Anion Gap 14 (12-20); Aspartate Amino Transferase 16 U/L (5-31); Bilirubin Total < 0.2 mg/dL (0.0-1.0); Blood Urea Nitrogen 25 mg/dL (9-16); Calcium 9.8 mg/dL (8.4-10.2); Carbon Dioxide 27 mmol/L (22-29); Chloride 105 mmol/L (96-108); Cholesterol 118 mg/dL; Estimated Glomerular Filt Rate 46; Glucose Fasting 96 mg/dL (60-99); HDL Cholesterol 39 mg/dL; LDL Cholesterol Calculated 64 mg/dl; Potassium 4.1 mmol/L (3.3-5.1); Sodium 142 mmol/L (135-145); Total Protein 6.9 g/dL (6.5-8.0); Triglycerides 76 mg/dL
[2021-11-25 11:53] LABS: TSH reflex Free T4 0.63 uIU/mL (0.32-4.0)
[2021-11-25 12:10] LABS: Microalbumin Urine < 5.0 mg/L
== END 2021-11-25 08:21 | disposition home or self-care (01) ==
LOC: HO.HMGCLDS 08:20
PROVIDERS: PCP Physician Assistant; Visit Provider Physician Assistant
DX: E78.5 Hyperlipidemia, unspecified (principal); I10 Essential (primary) hypertension
CPT/HCPCS: 36415; 80053; 80061; 82043; 84443

== ENCOUNTER 2022-01-07 11:40 | Outpatient (REF) | payer OTHER, SELFPAY ==
--- NOTE | ~2022-01-07 | CT_ITS ---
EXAMINATION: CT CHEST SCREENING CLINICAL INFORMATION: Lung screening, current smoker. COMPARISON: CT chest 09/10/2018. TECHNIQUE: Multidetector volumetric CT imaging of the chest is performed without contrast using low dose technique. Additional 2D coronal and sagittal reformatted images and axial 3D maximum intensity projection (MIP) images are generated on the CT workstation. This CT examination was performed using dose optimization techniques as appropriate, variously including the following: *Automated exposure control *Adjustment of mA and/or kV according to patient size (this includes techniques or standardized protocols for targeted exams where dose is matched to indication/reason for exam; i.e. extremities or head) *Use of iterative reconstruction technique DLP: 51 mGy-cm FINDINGS: LUNGS: The lungs are well expanded and clear of acute pneumonic process. There is 7 mm calcified granuloma left lower lobe subpleural-based, stable. No additional nodules visualized. MEDIASTINUM: The thyroid lobes are symmetrical and normal. The central trachea and the bronchi are widely patent. The heart size and the great vessels are normal caliber. There are coronary artery calcifications. No pericardial effusion seen. No abnormal-sized mediastinal or hilar lymphadenopathy seen. PLEURA: There is no pleural effusion. No pleural mass or thickening. AXILLA: There are small shotty bilateral axillary lymph nodes. UPPER ABDOMEN: Liver, spleen, pancreas and bilateral adrenal glands are unremarkable. There is a solitary radiopaque gallstone and bilateral renal cysts. OSSEOUS STRUCTURES: No aggressive lytic or sclerotic process seen. There is mild ventral spondylosis throughout dorsal spine. CT/CT lung screening IMPRESSION: No change in a 7 mm calcified left lower lobe nodule from the last study. No new nodule seen. No acute process. Gallstones, bilateral renal cysts. ASSESSMENT: Lung-RADS category 2: Benign S CATEGORY: Recommend clinical correlation. RECOMMENDATION: Low-dose annual CT chest.
== END 2022-01-07 11:41 | disposition home or self-care (01) ==
LOC: HO.CT 11:40
PROVIDERS: PCP Physician Assistant; Visit Provider Physician Assistant Medical
DX: Z12.2 Encounter for screening for malignant neoplasm of respiratory organs (principal); F17.210 Nicotine dependence, cigarettes, uncomplicated
CPT/HCPCS: 71271

== ENCOUNTER 2022-02-20 14:41 | Outpatient (REF) | payer OTHER, MEDICAID, SELFPAY ==
--- NOTE | 2022-02-20 17:39 | PFT_ITS ---
FLOWS: FEV1 97% of predicted at 2.13 L. FVC 90% of predicted at 2.53 L. FEV1 to FVC ratio of 0.84. No bronchodilator response except in small to medium airways. LUNG VOLUMES: Total lung capacity 85% of predicted at 4.06 L. Residual volume 78% of predicted at 1.58 L. Slow vital capacity 91% of predicted at 2.49 L. Expiratory reserve volume 90% predicted at 0.61 L. Diffusion capacity is mildly decreased, diffusion capacity corrects to normal after adjustment for alveolar ventilation. IMPRESSION: No obstructive or restrictive ventilatory defect. No bronchodilator response except in small to medium airways. Michael Lizarraga MD AP/MODL / [id number]
== END 2022-02-20 14:42 | disposition home or self-care (01) ==
LOC: HO.RESP 14:41
PROVIDERS: PCP Physician Assistant; Visit Provider Physician Assistant
DX: R06.02 Shortness of breath (principal)
CPT/HCPCS: 94060; 94727; 94729

== ENCOUNTER → 2022-05-13 09:29 | Outpatient (REF) | payer OTHER, SELFPAY ==
--- NOTE | 2022-05-13 09:31 | CA_ITS ---
Acquisition Time: 2022-05-13 09:50:19 Total Exercise Time: 00:05:00 Test Indications: CP Medications: SEE CHART Protocol: ADILSON Max HR: 151 BPM 98% of Pred: 154 BPM Max BP: 200/048 mmHG Max Work Load: 7.0 METS Exercise stress test with exercise 5 min of Adilson protocol, achieving 97% MPHR, with Left knee pain and need to stop exercise, with mild sob, no chest discomfort, without arrythmia, with hypertensive response to exercise with max BP 200/48, without EKG changes meeting criteria for ischemia. In recovery her BP normalized. Test reviewed with Dr Fajardo Referred By: Esau Cuellar Overread By: ADELINA BLANDON
== END ==
LOC: HO.CARD 09:29
PROVIDERS: Visit Provider Physician Assistant
DX: R07.89 Other chest pain (principal)
CPT/HCPCS: 93017

== ENCOUNTER 2022-06-06 10:11 | Outpatient (REF) | payer OTHER, SELFPAY ==
--- NOTE | ~2022-06-06 | MM_ITS ---
EXAMINATION: MM SCREENING DIGITAL BREAST TOMOSYNTHESIS, BILATERAL CLINICAL INFORMATION: Screening. Asymptomatic. The lifetime risk of breast cancer based on the Tyrer-Cuzick Model is 2.8%. COMPARISON: Mammography: May 30, 2021 and studies dating back to June 05, 2016 TECHNIQUE: Digital breast tomosynthesis is performed in both the craniocaudal and mediolateral oblique views along with computer-aided detection (CAD). Synthesized 2D images are generated from the tomosynthesis. FINDINGS: There are scattered areas of fibroglandular density (ACR BI-RADS breast composition Category b). There are no significant masses, abnormal calcifications, or other abnormalities. Stable circumscribed density about the central aspect of the right breast again noted. MM/MM tomosynthesis screening BI IMPRESSION: No significant changes from prior exam. ASSESSMENT: BI-RADS 1: Negative RECOMMENDATION: Routine annual mammography screening. This patient's information was entered into a reminder system with a target due date for their next mammogram.
== END 2022-06-06 10:12 | disposition home or self-care (01) ==
LOC: HO.MAMMO 10:11
PROVIDERS: PCP Physician Assistant; Visit Provider Physician Assistant
DX: Z12.31 Encounter for screening mammogram for malignant neoplasm of breast (principal)
CPT/HCPCS: 77063; 77067

== ENCOUNTER 2022-07-21 10:45 | Outpatient (REF) | payer OTHER, SELFPAY ==
[2022-07-21 11:34] LABS: Hematocrit 38.1 % (37.0-47.0); Hemoglobin 12.8 g/dl (12.0-16.0); Mean Corpuscular HGB Conc 33.6 g/dl (31.0-35.0); Mean Corpuscular Hemoglobin 29.2 pg (27.0-33.0); Mean Platelet Volume 10.8 fL (9.4-12.3); Platelet Count 210 X10*3/uL (160-400); Red Blood Count 4.38 X10*6/uL (4.20-5.50); Red Cell Distribution Width 12.8 % (11.0-16.0)
[2022-07-21 12:12] LABS: Alanine Aminotransferase 19 U/L (0-31); Alkaline Phosphatase 96 U/L (39-117); Anion Gap 10 (12-20); Aspartate Amino Transferase 16 U/L (5-31); Bilirubin Total 0.3 mg/dL (0.0-1.0); Blood Urea Nitrogen 20 mg/dL (9-16); Calcium 10.2 mg/dL (8.4-10.2); Carbon Dioxide 33 mmol/L (22-29); Chloride 106 mmol/L (96-108); Cholesterol 117 mg/dL; Estimated Glomerular Filt Rate 49; Glucose Fasting 94 mg/dL (60-99); HDL Cholesterol 33 mg/dL; LDL Cholesterol Calculated 63 mg/dl; Potassium 4.5 mmol/L (3.3-5.1); Sodium 144 mmol/L (135-145); Total Protein 6.8 g/dL (6.5-8.0); Triglycerides 106 mg/dL
== END 2022-07-21 10:46 | disposition home or self-care (01) ==
LOC: HO.HMGCLDS 10:45
PROVIDERS: PCP Physician Assistant; Visit Provider Physician Assistant
DX: I10 Essential (primary) hypertension (principal)
CPT/HCPCS: 36415; 80053; 80061; 85027

== ENCOUNTER → 2022-09-04 08:52 | Outpatient (BNVA) | payer OTHER, SELFPAY | PROVIDERS: PCP Physician Assistant; Visit Provider Nurse Practitioner Family | DX: N39.3 Stress incontinence (female) (male) (principal); R39.15 Urgency of urination | CPT/HCPCS: 51798; 99202 ==

== ENCOUNTER 2022-10-08 15:00 | Outpatient (REF) | payer OTHER, MEDICAID, SELFPAY ==
--- NOTE | ~2022-10-08 | US_ITS ---
EXAMINATION: US RETROPERITONEAL COMPLETE (RENAL) CLINICAL INFORMATION: Stress incontinence. COMPARISON: None TECHNIQUE: Real-time imaging of the kidneys and bladder. FINDINGS: RIGHT KIDNEY: 9.3 x 4.0 x 6.0 cm (SAG x AP x TRV). The kidney is normal in size, contour, and echogenicity. Renal cortical thickness is normal. No renal calculi or hydronephrosis. At the upper pole, adjacent 1.8 cm and 3. 3.1 cm benign, simple cysts are seen. LEFT KIDNEY: 9.1 x 5.2 x 5.3 cm (SAG x AP x TRV). The kidney is normal in size, contour, and echogenicity. Renal cortical thickness is normal. No renal calculi or hydronephrosis. At the interpolar aspect, 2.4 cm and 1.2 cm benign, simple cysts are seen. BLADDER: Well distended and normal. Bilateral ureteral jets are demonstrated. Prevoid bladder volume is 223 mL. Postvoid bladder volume is 7 mL. US/US retroperitoneal comp IMPRESSION: 1. Benign, simple bilateral renal cysts are seen, for which no imaging follow-up is recommended. 2. No bilateral renal solid mass, calculus or hydronephrosis is seen.
== END 2022-10-08 15:01 | disposition home or self-care (01) ==
LOC: HO.HMGCX 15:00
PROVIDERS: PCP Physician Assistant; Visit Provider Nurse Practitioner Family
DX: N39.3 Stress incontinence (female) (male) (principal)
CPT/HCPCS: 76770; 76775

== ENCOUNTER → 2022-10-27 11:17 | Outpatient (BNVA) | payer OTHER, SELFPAY | PROVIDERS: PCP Physician Assistant; Visit Provider Nurse Practitioner Family | DX: N39.3 Stress incontinence (female) (male) (principal); N32.81 Overactive bladder | CPT/HCPCS: 51798; 99212 ==

== ENCOUNTER 2022-11-18 10:02 | Outpatient (REF) | payer OTHER, SELFPAY ==
--- NOTE | ~2022-11-18 | FL_ITS ---
EXAMINATION: FL BARIUM SWALLOW CLINICAL INFORMATION: Dysphagia. COMPARISON: None available. TECHNIQUE: Barium swallow examination is performed using fluoroscopic evaluation in addition to multiple fluoroscopic spot views. The patient is imaged both upright and prone and using both thick and thin sulfate along with effervescent granules. Fluoroscopy time: 1.9 minutes minutes DAP: 14.390 Gycm2 Images: 64 FINDINGS: Following oral administration of thick barium, there is normal propagation seen in the upper and mid esophagus. There is delayed transit and peristalsis through the distal esophagus with tertiary peristalsis noted. There is mild irregularity of the distal esophagus suspicious for esophagitis. The upper esophagus is normal. On oral administration of barium coated turkey, there is slow propagation in the distal esophagus. On placing the patient in prone lie, and oral administration of thin barium, there is normal propagation of bolus from the oral cavity through the pharynx and esophagus without obstruction or narrowing. There is no evidence of hiatal hernia or reflux seen. FL/FL barium swallow IMPRESSION: Findings suggestive of distal esophagitis. No reflux or hiatal hernia seen.
== END 2022-11-18 10:03 | disposition home or self-care (01) ==
LOC: HO.XRAY 10:02
PROVIDERS: Visit Provider Physician Assistant
DX: R13.13 Dysphagia, pharyngeal phase (principal)
CPT/HCPCS: 74220

== ENCOUNTER 2022-12-08 10:57 | Outpatient (REF) | payer OTHER, SELFPAY ==
[2022-12-08 16:54] LABS: Urine Cytology See Pathology rpt
== END 2022-12-08 10:58 | disposition home or self-care (01) ==
LOC: HO.LNP 10:57
PROVIDERS: PCP Physician Assistant; Visit Provider Nurse Practitioner Family
DX: N39.46 Mixed incontinence (principal); R31.29 Other microscopic hematuria; Z79.899 Other long term (current) drug therapy
CPT/HCPCS: 51798; 88112; 99212

== ENCOUNTER 2022-12-19 15:17 | Outpatient (REF) | payer OTHER, SELFPAY ==
--- NOTE | ~2022-12-19 | CT_ITS ---
EXAMINATION: CT CHEST SCREENING CLINICAL INFORMATION: Nicotine dependence. Two packs per day for 49 years. Current smoker. COMPARISON: None available. TECHNIQUE: Multidetector volumetric CT imaging of the chest is performed without contrast using low dose technique. Additional 2D coronal and sagittal reformatted images and axial 3D maximum intensity projection (MIP) images are generated on the CT workstation. This CT examination was performed using dose optimization techniques as appropriate, variously including the following: *Automated exposure control *Adjustment of mA and/or kV according to patient size (this includes techniques or standardized protocols for targeted exams where dose is matched to indication/reason for exam; i.e. extremities or head) *Use of iterative reconstruction technique DLP: 41 mGy-cm FINDINGS: LUNGS: The lungs are well expanded and clear of acute pneumonic process. There is a 6 mm calcified subpleural nodule left lung base axial image 37/4. No additional calcified or noncalcified nodules seen. MEDIASTINUM: The thyroid lobes are symmetric and normal. The central trachea and the bronchi are widely patent. The heart size and the great vessels are normal caliber. There is no pericardial effusion. No abnormal size mediastinal or hilar lymph nodes or mass seen. CORONARY ARTERY CALCIFICATION: Mild coronary artery calcifications are visualized. PLEURA: There is no pleural effusion. No pleural mass or thickening. AXILLA: There are small shotty bilateral axillary lymph nodes noted. UPPER ABDOMEN: There are punctate calcifications along the medial margin of the right hepatic lobe. The visualized liver, spleen, pancreas and left adrenal gland appear unremarkable. There is a 3 cm exophytic cyst upper pole right kidney. OSSEOUS STRUCTURES: No aggressive lytic or sclerotic process seen. There is superior endplate deformity with Schmorl's node T9 vertebra likely old. CT/CT lung screening IMPRESSION: 6 mm calcified nodule left lung base. No additional nodules seen. ASSESSMENT: Lung-RADS category 2: Benign RECOMMENDATION: Low-dose annual CT chest.
== END 2022-12-19 15:18 | disposition home or self-care (01) ==
LOC: HO.CT 15:17
PROVIDERS: PCP Physician Assistant; Visit Provider Physician Assistant Medical
DX: Z12.2 Encounter for screening for malignant neoplasm of respiratory organs (principal); F17.210 Nicotine dependence, cigarettes, uncomplicated
CPT/HCPCS: 71271

== ENCOUNTER 2023-01-16 11:57 | Outpatient (REF) | payer OTHER, SELFPAY ==
[2023-01-16 13:27] LABS: Estimated Average Glucose 105 mg/dL; Hemoglobin A1c % 5.3 %
[2023-01-16 13:53] LABS: Cholesterol 129 mg/dL; HDL Cholesterol 43 mg/dL; LDL Cholesterol Calculated 60 mg/dl; Triglycerides 130 mg/dL
== END 2023-01-16 11:58 | disposition home or self-care (01) ==
LOC: HO.LAB 11:57
PROVIDERS: PCP Physician Assistant; Visit Provider Registered Nurse
DX: F33.1 Major depressive disorder, recurrent, moderate (principal); R31.29 Other microscopic hematuria; N39.46 Mixed incontinence; N28.1 Cyst of kidney, acquired; N32.81 Overactive bladder; Z79.899 Other long term (current) drug therapy
CPT/HCPCS: 36415; 52000; 80061; 83036; 99212

== ENCOUNTER 2023-01-16 13:08 | Outpatient (AMB) | payer OTHER, SELFPAY ==
--- NOTE | 2023-01-16 13:37 | MHC.OFFVIS ---
Intake Intake Visit Reasons: Cysto Intake Note: Pt presents to the office today for a cystoscopy. Urinalysis done. Allergies metformin [METFORMIN] Allergy (Intermediate, Verified 01/28/23 11:40) DIARRHEA, NAUSEA Penicillins [PENICILLINS] Allergy (Intermediate, Verified 01/28/23 11:40) RASH canagliflozin [Invokana] Allergy (Unknown, Verified 01/28/23 11:40) rash oxycodone Allergy (Verified 01/28/23 11:40) Unknown HPI HPI Comments History of Present Illness Details Jacki is a 67-year-old female who presents to the office for cystoscopy procedure. 01/16/23-- She was last seen on 12/08/22 by SENIOR CORPORATE RECRUITER Ada Rangel. The patient reports no benefits with multiple anticholinergic medications including Myrbetriq, tolteradine, oxybutynin, and Vesicare which she took in the past. The patient states increased urinary frequency. The patient states urinary leakage with coughing. Denies urinary leakage with sneezing. She is being evaluated for microscopic hematuria. The patient is an active smoker. Renal US results reviewed--10/08/22-- simple benign bilateral renal cyst negative for stones or solid masses Urine cytology-- collected on 12/08/22-- negative for malignant cells. Evaluation today--Blood: negative, leukocytes: negative. Cystoscopy findings-- Bladder: WNL. Urinary leakage with cough after the procedure. I have discussed microscopic hematuria may be due to but not limited to kidney stones, cystitis, urinary tract malignancy. The patient does have renal cysts which is a common finding. Also, discussed that urinary leakage can be related to pelvic floor muscles weakness and/or bladder spasms. Treatment options discussed for OAB included anticholinergics/antimuscarinics, neuromodulation, bladder botox injection. Plan: Urodynamic testing discussed to be scheduled in next 4 months. Encouraged the patient to quit smoking as nicotine can be a risk factor for urinary tract cancers. [facility] Medical History Anxiety Arthritis Asthma Back pain Chronic 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 Chronic pain of left knee Depression Diabetes type 2, uncontrolled Dyslipidemia HTN (hypertension) Obesity (BMI 30-39.9) Osteoarthritis of knees, bilateral Vitamin D deficiency Surgical History H/O tubal ligation History of colonoscopy History of ear surgery History of hysterectomy History of surgery on wrist S/P total knee arthroplasty Family History Father Automobile accident Mother Hypertension Hyperlipidemia Diabetes Brother Diabetes Hyperlipidemia Sister Diabetes Hyperlipidemia Social History Housing: House Alcohol intake: never Patient Tobacco Use Status: Current everyday Tobacco user Tobacco use type: Cigarette Cigarette Packs Per Day: 1 Cigarettes Per Day: 15 Years Smoked: 49 e-Cigarette/Vaping Use: Former Use Second Hand Smoke Exposure: Yes Advance Directives Date on File: 09/18/17 service: No Current occupational status: disabled Cognitive needs: Yes (Pt would like a cane due to her pain in her leg) Hearing needs: Yes (right ear hearing loss) Vision needs: Yes Review of Systems Const All systems reviewed & are unremarkable except as noted in HPI and below Reports no additional complaints Eyes Reports no additional complaints ENT Reports no additional complaints Card Denies dyspnea Resp Denies cough and Denies dyspnea GI Reports no additional complaints Reports no additional complaints Musc Reports no additional complaints Skin/Breast Denies rash and Denies unusual bruising Neuro Reports no additional complaints Psych Reports no additional complaints Endo Reports no additional complaints Feliberto/Lymph Reports no additional complaints Aller/Immun Reports no additional complaints Physical Exam Const General: cooperative, healthy appearing and no acute distress Orientation/consciousness: patient oriented x3 HEENT Head: Yes normal to inspection, Yes normocephalic and Yes atraumatic Eyes Conjunctivae: conjunctivae normal Neck Neck: Yes normal visual inspection and Yes trachea midline Chest Chest palpation & inspection: normal inspection of the chest Resp Effort & Inspection: normal respiratory effort Cardio Rate: regular rate GI Inspection: Yes normal to inspection General: No no CVA tenderness External Female Exam: normal external appearance Speculum Exam - Vagina: vagina atrophic Back/Spine/Pelvis Back: No no CVA tenderness Skin General skin exam: no rashes or lesions noted Neuro General: patient oriented x3 Extrem General: No edema Psych Appearance: grossly normal Office Procedures Cystoscopy Consent Discussed risk and benefit or proposed procedure with the patient. Information consent for procedure given to the patient. Discussed technical aspects, risks, benefits and alternatives in full. Addressed all of the patient's questions and concerns regarding the procedure. The patient demonstrated knowledge and understanding. They wish to proceed with this procedure. Preparation The patient was prepped in the usual manner. A system administration advisor was present and in the room. Genitalia was prepped with betadine solution in a sterile manner. Lidocaine Jelly 2% was placed into the urethra and 16Fr flexible Olympus cystoscope was inserted into the meatus after adequate lubrication. Procedure Time out per protocol performed. Bladder Inspection Bladder Inspection: The bladder was inspected in its entirety with utilization retroflexion displaying: Tumor(s): None visualized Trabeculation: mild Mucosal Erthema: N/A Orifices: normal shape and position Urethra: normal Cystoscopy findings: WNL, no suspicious bladder lesions visualized [id number] Procedure code (CPT) selection complete Office Meds lidocaine HCl Performing Provider: Marcial Beltran MD Administered by: Annita Alexis RN on 01/16/23 14:06 Dose Route Admin Location Lot Number Expiration Date NDC High Density Finishing Operator 10 mL intra-urethral naproxen Performing Provider: Marcial Beltran MD Administered by: Annita Alexis RN on 01/16/23 14:06 Dose Route Admin Location Lot Number Expiration Date NDC High Density Finishing Operator 500 mg PO ciprofloxacin HCl Performing Provider: Marcial Beltran MD Administered by: Annita Alexis RN on 01/16/23 14:06 Dose Route Admin Location Lot Number Expiration Date NDC High Density Finishing Operator 500 mg PO Results AMB Urinalysis, Automated UA Leukoctes 0 Bruce/uL Last Edit by Clarita Rooney MA on 01/16/23 13:53 UA Nitrite Negative Last Edit by Clarita Rooney MA on 01/16/23 13:53 UA Urobilinogen 0.2 mg/dL Last Edit by Clarita Rooney MA on 01/16/23 13:53 UA Protein 0 mg/dL Last Edit by Clarita Rooney MA on 01/16/23 13:53 UA pH 7.0 Last Edit by Clarita Rooney MA on 01/16/23 13:53 UA Blood 0 Nilo/uL Last Edit by Clarita Rooney MA on 01/16/23 13:53 UA Specific Coello 1.010 Last Edit by Clarita Rooney MA on 01/16/23 13:53 UA Ketone Negative Last Edit by Clarita Rooney MA on 01/16/23 13:53 UA Bilirubin 0 mg/dL Last Edit by Clarita Rooney MA on 01/16/23 13:53 UA Glucose 0 mg/dL Last Edit by Clarita Rooney MA on 01/16/23 13:53 Results Reviewed Results Reviewed: Laboratory Last Values Urine pH (Auto) 7.0 01/16/23 13:39 Specific [place]ello (Auto) 1.010 01/16/23 13:39 Urine Protein (Auto) 0 mg/dL 01/16/23 13:39 Glucose (UA)(Auto) 0 mg/dL 01/16/23 13:39 Urine Ketones (Auto) Negative 01/16/23 13:39 Urine Blood (Auto) 0 Nilo/uL 01/16/23 13:39 Urine Nitrite (Auto) Negative 01/16/23 13:39 Urine Bilirubin (Auto) 0 mg/dL 01/16/23 13:39 Urine Urobilinogen (Auto) 0.2 mg/dL 01/16/23 13:39 Leukocyte Esterase (Auto) 0 Bruce/uL 01/16/23 13:39 Date of Service: 10/08/22 EXAMINATION: US RETROPERITONEAL COMPLETE (RENAL) CLINICAL INFORMATION: Stress incontinence. COMPARISON: None TECHNIQUE: Real-time imaging of the kidneys and bladder. FINDINGS: RIGHT KIDNEY: 9.3 x 4.0 x 6.0 cm (SAG x AP x TRV). The kidney is normal in size, contour, and echogenicity. Renal cortical thickness is normal. No renal calculi or hydronephrosis. At the upper pole, adjacent 1.8 cm and 3. 3.1 cm benign, simple cysts are seen. LEFT KIDNEY: 9.1 x 5.2 x 5.3 cm (SAG x AP x TRV). The kidney is normal in size, contour, and echogenicity. Renal cortical thickness is normal. No renal calculi or hydronephrosis. At the interpolar aspect, 2.4 cm and 1.2 cm benign, simple cysts are seen. BLADDER: Well distended and normal. Bilateral ureteral jets are demonstrated. Prevoid bladder volume is 223 mL. Postvoid bladder volume is 7 mL. IMPRESSION: ? 1. Benign, simple bilateral renal cysts are seen, for which no imaging follow-up is recommended. ? 2. No bilateral renal solid mass, calculus or hydronephrosis is seen. Collected: 12/08/22 Received: 12/09/22 Diagnosis Urine:? Negative for high-grade urothelial carcinoma.? COMMENT:? Examination of a monolayer preparation slide shows occasional benign urothelial cells, many benign squamous cells, occasional inflammatory cells, and few red blood cells. Clinical History Stress incontinence of urine Material Received Urine Gross Description 13 cc slightly cloudy yellow fluid Assessment & Plan Assessment & Plan (1) Microhematuria: Code(s): R31.29 - Other microscopic hematuria (2) Urinary incontinence, mixed: Code(s): N39.46 - Mixed incontinence (3) Acquired renal cyst: Code(s): N28.1 - Cyst of kidney, acquired (4) OAB (overactive bladder): Code(s): N32.81 - Overactive bladder Plan: The patient had an opportunity to ask questions regarding treatment plan. All questions were answered. Imaging, Laboratory studies and physical exam results were discussed and reviewed in detail. No major barriers to understanding were identified. The patient expressed understanding and agreement with the above treatment plan. The patient is aware they should contact our office by phone for worsening of their current condition or the appearance of new symptoms. Compliance is encouraged with any medications and followup testing that is ordered. It is a privilege to be allowed the opportunity to participate in the urologic care of your patient. If you have any questions or concerns regarding treatment for the above conditions please do not hesitate to contact me. The office telephone contact is [phone]. This note is constructed in part using voice recognition software. While every effort has been made to ensure accuracy content development specialist errors may have been included. Yours sincerely, Marcial Beltran MD Plan Urodynamic testing discussed to be scheduled in next 4 months. Encouraged the patient to quit smoking as nicotine can be a risk factor for urinary tract cancers. Orders: Orders AMB Cystoscopy 01/16/23 R31.29 - Other microscopic hematuria, N39.46 - Mixed incontinence AMB Urinalysis Automated 01/16/23 Z13.9 - Encounter for screening, unspecified Coding Level of Care Code Est Pt Level 3 (14743) Diagnoses Microhematuria R31.29 Urinary incontinence, mixed N39.46 Acquired renal cyst N28.1 OAB (overactive bladder) N32.81 CPT Codes Cystoscopy - CPT: 81808-[id number] ([id number]) Time Spent (min) 29
== END 2023-01-16 14:33 | disposition home or self-care (01) ==
LOC: HO.HUSH 13:08
PROVIDERS: PCP Physician Assistant; Visit Provider Urology
DX: R31.29 Other microscopic hematuria (principal); N39.46 Mixed incontinence; N28.1 Cyst of kidney, acquired; N32.81 Overactive bladder
CPT/HCPCS: 52000; 99213

== ENCOUNTER 2023-02-16 10:51 | Outpatient (REF) | payer OTHER, SELFPAY | END 2023-02-16 10:52 | disposition home or self-care (01) | LOC: HO.HMGCLDS 10:51 | PROVIDERS: PCP Physician Assistant; Visit Provider Physician Assistant | DX: E11.9 Type 2 diabetes mellitus without complications (principal); Z79.4 Long term (current) use of insulin | CPT/HCPCS: 36415; 80053; 85027 ==

== ENCOUNTER 2023-05-13 11:30 | Outpatient (AMB) | payer OTHER, SELFPAY ==
[2023-05-13 11:35] VITALS: BP 142/76; PULSE 65; RESP 17; O2SAT 98; BMI 27.6
--- NOTE | 2023-05-13 11:35 | MHC.PC.OV ---
Vital Signs 05/13/23 11:35 Height 5 ft 2 in Weight 151 lb BMI 27.6 BP 142/76 H Blood Pressure Location Lt brachial Position Sitting Respiration 17 Pulse 65 Pulse Source Pulse Oximeter Pulse Oximetry (%) 98 Oxygen Delivery Method Room Air Intake Visit Reasons: f/u DMII - need microalbumin Intake Note: Patient is here to follow up on DMII. Accompanied by: Daughter Allergies metformin [METFORMIN] Allergy (Intermediate, Verified 05/13/23 11:46) DIARRHEA, NAUSEA Penicillins [PENICILLINS] Allergy (Intermediate, Verified 05/13/23 11:46) RASH canagliflozin [Invokana] Allergy (Unknown, Verified 05/13/23 11:46) rash oxycodone Allergy (Verified 05/13/23 11:46) Unknown Medication List - Last Reconciled 05/13/23 by Esau Cuellar PA-C albuterol sulfate 2.5 mg (3 mL) inhalation Q6H 30 days albuterol sulfate 90 mcg/actuation (Ventolin HFA) 1 inh inhalation QID 30 days aripiprazole 15 mg PO BEDTIME atorvastatin 40 mg PO DAILY BD Ultra-Fine Rebeca Pen Needle (pen needle, diabetic) 1 ea miscellaneous DAILY 90 days NS cholecalciferol (vitamin D3) 25 mcg PO DAILY 90 days clonazepam 0.5 mg PO BID escitalopram oxalate 20 mg PO DAILY flash glucose scanning reader ([employer]Style Piyush 2 [place]) As directed flash glucose sensor ([employer]Style Piyush 2 Sensor kit) As directed hydroxyzine HCl 25 mg PO BID liraglutide (Victoza 3-Willy) 0.6 mg (0.1 mL) subcut DAILY 30 days lisinopril-hydrochlorothiazide 20-12.5 mg 1 tab PO DAILY 90 days loperamide 2 mg PO QID PRN naproxen 500 mg PO BID PRN pantoprazole 20 mg PO DAILY tizanidine 2 mg PO Q8H PRN 90 days trazodone 100 mg PO BEDTIME Tobacco use date assessed: 01/28/23 HPI f/u DMII - need microalbumin HPI Details Patient is a 67 year-old female here today for follow-up visit. ? Patient has a past history significant for type 2 diabetes,, Smoker, hypertension, hyperlipidemia, tobacco dependence, bipolar disorder, Chronic Knee pain. .. Smoker:? Unfortunately patient continues to smoke and does not want to quit at this time. Does report having a cough over the last week. Has been using Nebulizer at home. she has tried nicotine replacement in the past without any success.? Is recently tried Nicotrol though reports it made her smoke more.? Is now in the lung cancer screening program and most recent CT chest BIRADS-2 stable. Concerns--> she continues to have left knee pain status post replacement surgery in 2020. .Has been using anti-inflammatories, muscle relaxers and Tylenol without much relief. She will try to follow back up with her orthopedic surgeon. ? .. ? DMII: Patient reports her blood sugars have been controlled most recent A1c acceptable . Has lost significant amount of weight due to having dental issues and not being able to eat well. ?Continues on injections of Victoza now at lower dose due to previous episodes of hypoglycemia ? .. ?Hypertension:? Blood pressure today in office acceptable problem.? She reports she is monitoring blood pressure at home reports 110s to 120 systolic.? Otherwise denies any chest discomforts, headaches or dizziness.? She does report shortness of breath on exertion likely secondary to her years of smoking. . . [facility] Medical History (Updated 05/13/23 @ 13:18 by Esau Cuellar PA-C) Obese Chronic 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 Chronic pain of left knee Osteoarthritis of knees, bilateral Arthritis Back pain Asthma Obesity (BMI 30-39.9) Vitamin D deficiency Dyslipidemia Anxiety Depression HTN (hypertension) Surgical History S/P total knee arthroplasty History of surgery on wrist History of ear surgery History of hysterectomy History of colonoscopy H/O tubal ligation Family History Father Automobile accident Mother Hypertension Hyperlipidemia Diabetes Brother Diabetes Hyperlipidemia Sister Diabetes Hyperlipidemia Social History Housing: House Alcohol intake: never Patient Tobacco Use Status: Current everyday Tobacco user Tobacco use type: Cigarette Cigarette Packs Per Day: 1 Cigarettes Per Day: 15 Years Smoked: 49 e-Cigarette/Vaping Use: Former Use Second Hand Smoke Exposure: Yes Advance Directives Date on File: 09/18/17 service: No Current occupational status: disabled Cognitive needs: Yes (Pt would like a cane due to her pain in her leg) Hearing needs: Yes (right ear hearing loss) Vision needs: Yes Questionnaire Thrive Questionnaire Date Thrive assessed: 01/28/23 EVA-7 AMB Questionnaire EVA-7 Date EVA - 7 assessed: 01/28/23 Source: Developed by Drs. Hair Briscoe, Quin Bell, Ricci Burleson and colleagues, with an educational jim from [employer]. Review of Systems Const Denies headache(s) Eyes Denies loss of vision ENT Denies vertigo, Denies dizziness, Denies headache(s) and Denies sore throat Card Denies chest pain, Denies leg edema and Denies lightheadedness Resp Denies cough, Denies hemoptysis and Denies wheezing GI Denies abdominal pain, Denies melena, Denies constipation, Denies diarrhea and Denies vomiting Denies urinary frequency, Denies dysuria and Denies urinary urgency Musc Denies arthralgias, Denies joint swelling, Denies numbness and Denies tingling Neuro Denies Abnormal speech present, Denies behavioral changes, Denies vertigo, Denies dizziness, Denies headache(s), Denies loss of vision, Denies memory loss, Denies numbness and Denies tingling Psych Denies anxiety, Denies behavioral changes, Denies depression, Denies memory loss and Denies panic attacks Feliberto/Lymph Denies easy bleeding and Denies easy bruising Aller/Immun Denies wheezing Physical exam (Primary Care) Vital Signs: Last Vital Signs Pulse 65 05/13/23 11:35 Resp 17 05/13/23 11:35 BP 142/76 H 05/13/23 11:35 Pulse Ox 98 05/13/23 11:35 Oxygen Delivery Method Room Air 05/13/23 11:35 BMI result Body Mass Index 27.6 Tobacco/Smoking Status: Tobacco use Status Tobacco use date assessed 01/28/23 05/13/23 11:38 Patient Tobacco Use Status Current everyday Tobacco 05/13/23 11:38 Tobacco use type Cigarette 05/13/23 11:38 e-Cigarette/Vaping Use Former Use 05/13/23 11:38 Thrive Assessment: Date of Thrive Assessment Date Thrive assessed 01/28/23 05/13/23 11:38 Const General: healthy appearing, no acute distress, alert and awake Nutritional Appearance: well nourished Orientation/consciousness: oriented to person, oriented to place and oriented to time HENMT Ears: TM's normal bilaterally General nose exam: Normal nasal mucous membranes and turbinates present Eyes Conjunctivae: conjunctivae normal Sclerae: sclerae normal Pupils: Equal, round and reactive pupils present Neck Neck: Yes no lymphadenopathy and Yes no JVD Thyroid: Thyroid normal Carotids: no bruits Resp Effort & Inspection: normal respiratory effort and not tachypneic Auscultation: no crackles, no rales, no rhonchi and no wheezes Cardio Rate: regular rate Rhythm: regular rhythm Heart sounds: no murmurs and normal S1 and S2 GI Palpation (GI): Soft to palpation, nontender, no hepatomegaly and no splenomegaly Auscultation: normal bowel sounds Skin General skin exam: no rashes or lesions noted and dry skin Neuro General: oriented to person, oriented to place and oriented to time Cranial nerves: Yes Equal, round and reactive pupils present Speech: No Abnormal speech present Gait exam (Neuro): Normal gait present Motor exam (neuro): no tremor noted Extrem Right upper extremity: full ROM Left upper extremity: full ROM Right lower extremity: full ROM; no edema Left lower extremity: full ROM; no edema Psych Mental Status: mental status grossly normal Speech and movement: Normal speech and movement present Affect: normal affect Attitude: cooperative Thought process: Normal thought process present Results AMB Hemoglobin A1c AMB Hemoglobin A1c 6.5 % Last Edit by SOULEYMANE Gregorio on 05/13/23 11:46 Results Reviewed Results Reviewed: Laboratory Last Values Hgb A1c (Clinic) 6.5 % (4.0-6.0) H 05/13/23 11:33 Assessment and Plan Assessment & Plan (1) DMII (diabetes mellitus, type 2): Code(s): E11.9 - Type 2 diabetes mellitus without complications Qualifiers: Diabetes mellitus complication status: without complication Diabetes mellitus custodial insulin use: with custodial use Qualified Code(s): E11.9 - Type 2 diabetes mellitus without complications; Z79.4 - medical terminologist (current) use of insulin Plan: Patient's type 2 diabetes well controlled on current dose of victoza. Has lost significant amount of weight due to dental issues. Does report from time to time having hypoglycemic events. . Goal A1c to see to be below 7.0 (2) Chronic pain of left knee: Code(s): M25.562 - Pain in left knee; G89.29 - Other chronic pain Plan: Patient is status post left total knee arthroplasty in 2020. She continues to have patient to which she has used NSAID muscle relaxers and Tylenol all without much relief. Will try her on meloxicam 15 mg pay refer to pain management to discuss pain reduction modalities. Advised to follow-up with orthopedics for possible re-evaluation of her left knee. She does report some instability in that left knee (3) Tobacco dependence: Code(s): F17.200 - Nicotine dependence, unspecified, uncomplicated Plan: Unfortunately continues to smoke and has no thoughts about quitting. Offered her nicotine replacement though declines my offers (4) Asthma: Code(s): J45.909 - Unspecified asthma, uncomplicated Qualifiers: Asthma complication type: with acute exacerbation Asthma persistence: intermittent Asthma severity: mild Qualified Code(s): J45.21 - Mild intermittent asthma with (acute) exacerbation Plan: Patient reports asthma has been fairly well controlled with use of her albuterol inhaler and nebulizer. Again unfortunately continues to smoke cigarettes (5) HTN (hypertension): Code(s): I10 - Essential (primary) hypertension Qualifiers: Hypertension type: essential hypertension Qualified Code(s): I10 - Essential (primary) hypertension Plan: Patient's blood pressure today in office acceptable. Will continue current dose of antihypertensive medication with goal blood pressure to be below 140/90 Orders: Orders Microalbumin, Random (w Creat) Today I10 - Essential (primary) hypertension Lipid Panel Today E78.5 - Hyperlipidemia, unspecified Comprehensive [place]. Panel Fast Today E11.9 - Type 2 diabetes mellitus without complications, Z79.4 - long-term (current) use of insulin Referrals Pain Management Referral G89.29 - Other chronic pain, M25.562 - Pain in left knee Medications: New meloxicam 15 mg PO DAILY 30 days 30 tabs 1RF G89.29 - Other chronic pain, M25.562 - Pain in left knee Changed From hydroxyzine HCl 25 mg PO BID To hydroxyzine HCl 25 mg PO BID 30 days PRN 60 tabs 1RF sleep Refilled pantoprazole 20 mg PO DAILY 90 tabs 2RF lisinopril-hydrochlorothiazide 20-12.5 mg 1 tab PO DAILY 90 days 90 tabs 2RF I10 - Essential (primary) hypertension albuterol sulfate 2.5 mg (3 mL) inhalation Q6H 30 days 360 mL 3RF J45.909 - Unspecified asthma, uncomplicated albuterol sulfate 90 mcg/actuation (Ventolin HFA) 1 inh inhalation QID 30 days 8.5 grams 3RF J45.21 - Mild intermittent asthma with (acute) exacerbation atorvastatin 40 mg PO DAILY 90 tabs 1RF Discontinued naproxen Discontinued Reason: Doctor's Order 500 mg PO BID PRN 180 tabs 2RF for pain Coding Level of Care Code Est Pt Level 4 (22063) Diagnoses Type 2 diabetes mellitus without complication, with long-term current use of insulin E11.9; Z79.4 Diabetes mellitus complication status: without complication Diabetes mellitus terminal computer operator insulin use: with terminal computer operator use Chronic pain of left knee M25.562; G89.29 Tobacco dependence F17.200 Mild intermittent asthma with acute exacerbation J45.21 Asthma complication type: with acute exacerbation Asthma persistence: intermittent Asthma severity: mild Essential hypertension I10 Hypertension type: essential hypertension
== END 2023-05-13 12:07 | disposition home or self-care (01) ==
PROVIDERS: PCP Physician Assistant; Visit Provider Physician Assistant
DX: E11.9 Type 2 diabetes mellitus without complications (principal); Z79.4 Long term (current) use of insulin; M25.562 Pain in left knee; G89.29 Other chronic pain; F17.200 Nicotine dependence, unspecified, uncomplicated; J45.21 Mild intermittent asthma with (acute) exacerbation; I10 Essential (primary) hypertension
CPT/HCPCS: 83036; 99214

== ENCOUNTER 2023-05-27 14:45 | Outpatient (AMB) | payer OTHER, SELFPAY ==
[2023-05-27 15:00] VITALS: BP 128/62; PULSE 81; RESP 16; O2SAT 97; BMI 28.7
--- NOTE | 2023-05-27 15:00 | A.OFFVIS_ITS ---
Intake Vital Signs 05/27/23 15:00 Height 5 ft 2 in Weight 157 lb BMI 28.7 BP 128/62 Blood Pressure Location Rt brachial Position Sitting Respiration 16 Pulse 81 Pulse Source Pulse Oximeter Pulse Oximetry (%) 97 Oxygen Delivery Method Room Air Intake Visit Reasons: left knee pain Intake Note: patient comes in to discuss left knee pain. pain level today is 8/10 Allergies metformin [METFORMIN] Allergy (Intermediate, Verified 05/27/23 15:01) DIARRHEA, NAUSEA Penicillins [PENICILLINS] Allergy (Intermediate, Verified 05/27/23 15:01) RASH canagliflozin [Invokana] Allergy (Unknown, Verified 05/27/23 15:01) rash oxycodone Allergy (Verified 05/27/23 15:01) Unknown HPI HPI Comments History of Present Illness Details Justa is very pleasant 67 years old female who came to my office with complains on intractable pain in the left lower extremity. She stopped feeling stimulation of the left knee from her curonix/stim wave device. She is status post left total knee replacement with less than adequate results. She reports swelling of the left knee limited range of motion in the left knee and severe pain in anterior as well as posterior surface of the left knee. For the treatment of this condition she had in 2020 performed genicular nerve block. She reported 100% pain improvement. She had for trial of curonix / stim wave with 90% improvement of the mobility and 90% improvement of pain in the knee. The implantation was on 11/12/2020. However about 1 year after the implantation she started to report that the device is no longer helping her. She was recommended to address the issue to the customer development representative from [employer]. Adjustments were made at this time for stimulation. The patient was after that lost for follow-up. One year after now she came with complains on pain in the left knee and absence of the sensation of the stimulation in the left knee. We decided that I will schedule this patient for examination under fluoroscopy in the injection center next Thursday. [facility] Medical History (Updated 05/13/23 @ 13:18 by Esau Cuellar PA-C) Obese Chronic 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 Chronic pain of left knee Osteoarthritis of knees, bilateral Arthritis Back pain Asthma Obesity (BMI 30-39.9) Vitamin D deficiency Dyslipidemia Anxiety Depression HTN (hypertension) Surgical History S/P total knee arthroplasty History of surgery on wrist History of ear surgery History of hysterectomy History of colonoscopy H/O tubal ligation Family History Father Automobile accident Mother Hypertension Hyperlipidemia Diabetes Brother Diabetes Hyperlipidemia Sister Diabetes Hyperlipidemia Social History Housing: House Alcohol intake: never Patient Tobacco Use Status: Current everyday Tobacco user Tobacco use type: Cigarette Cigarette Packs Per Day: 1 Cigarettes Per Day: 15 Years Smoked: 49 e-Cigarette/Vaping Use: Former Use Second Hand Smoke Exposure: Yes Advance Directives Date on File: 09/18/17 service: No Current occupational status: disabled Cognitive needs: Yes (Pt would like a cane due to her pain in her leg) Hearing needs: Yes (right ear hearing loss) Vision needs: Yes Review of Systems Const All systems reviewed & are unremarkable except as noted in HPI and below Physical Exam Vital Signs: Last Vital Signs Pulse 81 05/27/23 15:00 Resp 16 05/27/23 15:00 BP 128/62 05/27/23 15:00 Pulse Ox 97 05/27/23 15:00 Oxygen Delivery Method Room Air 05/27/23 15:00 BMI result Body Mass Index 28.7 Eyes General: appearance normal, both eyes and all related structures EOM: EOMs intact bilaterally Neck Neck: Yes full ROM Chest Chest palpation & inspection: normal inspection of the chest Resp Effort & Inspection: normal respiratory effort, able to speak in complete sentences, normal respiratory pattern, no audible wheezes and no cough Cardio Jugular venous distension: no JVD GI Inspection: Yes normal to inspection Back/Spine/Pelvis Other: Full range of motion with the knee on the left without any limitation about 120? of flexing and bending.. There is a scar in anterior surface of the left lower extremity very well-healed after total knee replacement. There is no temperature differences between the knees. There is no hair pattern changes. NEUROLOGIC: nonfocal, motor strength normal upper and lower extremities, sensory exam intact. Assessment & Plan Assessment & Plan (1) Osteoarthritis of knees, bilateral: Code(s): M17.0 - Bilateral primary osteoarthritis of knee (2) Chronic pain of left knee: Code(s): M25.562 - Pain in left knee; G89.29 - Other chronic pain (3) Chronic 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: Code(s): M25.562 - Pain in left knee; G89.29 - Other chronic pain; Z96.652 - Presence of left artificial knee joint Plan We decided today that I will invited her for the evaluation of the stim wave wire by fluoroscopy. It will be done next Thursday. 06/02/2023. I suspect that her stimulating wire got dislodged. If it is so will discuss options to treat the pain in the knee. Coding Level of Care Code Est Pt Level 3 (64603) Diagnoses Osteoarthritis of knees, bilateral M17.0 Chronic pain of left knee M25.562; G89.29 Chronic 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 M25.562; G89.29; Z96.652
== END 2023-05-27 15:30 | disposition home or self-care (01) ==
PROVIDERS: PCP Physician Assistant; Visit Provider Anesthesiology
DX: M17.0 Bilateral primary osteoarthritis of knee (principal); M25.562 Pain in left knee; G89.29 Other chronic pain; Z96.652 Presence of left artificial knee joint
CPT/HCPCS: 99213

== ENCOUNTER → 2023-05-27 14:45 | Outpatient (BNVA) | payer OTHER, MEDICAID, SELFPAY | PROVIDERS: PCP Physician Assistant; Visit Provider Anesthesiology | DX: M17.0 Bilateral primary osteoarthritis of knee (principal); G89.29 Other chronic pain; M25.562 Pain in left knee; Z96.652 Presence of left artificial knee joint | CPT/HCPCS: 99212 ==

== ENCOUNTER 2023-06-02 07:26 | Outpatient (REF) | payer OTHER, MEDICAID, SELFPAY ==
--- NOTE | ~2023-06-02 | FL_ITS ---
EXAMINATION: XR FLUOROSCOPY WITH IMAGES CLINICAL INFORMATION: Pain in left knee. COMPARISON: None available. TECHNIQUE: Fluoroscopy Supervised By: Dr. Ashok Monahan. Fluoroscopy Time: 0.0 minutes. Cumulative Dose: 0.309 mGy. DAP: 0.88572 Gycm2. Images: 2. FINDINGS: Image demonstrates lead adjacent to the medial metaphysis of the left tibia. There is a 3 component left knee replacement. FL/FL guidance in treatment room IMPRESSION: Fluoroscopy guidance for pain management procedure
[2023-06-02 11:15] LABS: Hematocrit 38.3 % (37.0-47.0); Hemoglobin 12.5 g/dl (12.0-16.0); Mean Corpuscular HGB Conc 32.6 g/dl (31.0-35.0); Mean Corpuscular Hemoglobin 29.4 pg (27.0-33.0); Mean Corpuscular Volume 90.1 fL (80.0-98.0); Mean Platelet Volume 10.9 fL (9.4-12.3); Platelet Count 168 X10*3/uL (160-400); Red Blood Count 4.25 X10*6/uL (4.20-5.50); Red Cell Distribution Width 13.9 % (11.0-16.0); White Blood Count 12.9 X10*3/uL (4.8-10.8)
[2023-06-02 12:01] LABS: Alanine Aminotransferase 11 U/L (0-31); Albumin Level 4.1 g/dL (3.5-5.0); Alkaline Phosphatase 92 U/L (39-117); Anion Gap 14 (12-20); Aspartate Amino Transferase 16 U/L (5-31); Bilirubin Total 0.2 mg/dL (0.0-1.0); Blood Urea Nitrogen 14 mg/dL (9-16); Calcium 9.9 mg/dL (8.4-10.2); Carbon Dioxide 27 mmol/L (22-29); Chloride 104 mmol/L (96-108); Cholesterol 135 mg/dL (<200); Estimated Glomerular Filt Rate 53; Glucose Fasting 107 mg/dL (60-99); HDL Cholesterol 43 mg/dL (>40); LDL Cholesterol Calculated 52 mg/dL (<100); Potassium 3.7 mmol/L (3.3-5.1); Sodium 141 mmol/L (135-145); Total Protein 7.2 g/dL (6.5-8.0); Triglycerides 202 mg/dL (<150)
[2023-06-02 12:19] LABS: TSH reflex Free T4 0.53 uIU/mL (0.32-4.0)
[2023-06-02 12:53] LABS: Creatinine Urine 94.53 mg/dL; Microalbum/Creatinine Ratio Ur 7.4 ug/mg cr (<30)
== END 2023-06-02 07:27 | disposition home or self-care (01) ==
LOC: HO.LAB 07:26
PROVIDERS: Absent Provider Physician Assistant; PCP Physician Assistant; Visit Provider Anesthesiology
DX: E11.9 Type 2 diabetes mellitus without complications (principal); I10 Essential (primary) hypertension; M17.0 Bilateral primary osteoarthritis of knee; G89.29 Other chronic pain; E78.5 Hyperlipidemia, unspecified; Z79.4 Long term (current) use of insulin; Z96.652 Presence of left artificial knee joint
CPT/HCPCS: 36415; 80053; 80061; 82043; 82570; 84443; 85027; 99212

== ENCOUNTER 2023-06-02 12:09 | Outpatient (AMB) | payer OTHER, SELFPAY ==
--- NOTE | 2023-06-02 11:49 | A.OFFVIS_ITS ---
Intake Vital Signs 06/02/23 12:06 Height 5 ft 2 in Weight 157 lb BMI 28.7 BP 120/78 Blood Pressure Location Lt brachial Position Sitting Respiration 14 Pulse 84 Pulse Source Pulse Oximeter Pulse Oximetry (%) 96 Oxygen Delivery Method Room Air Intake Visit Reasons: Evaluation S/p Fluoroscopy of (L) Knee (Per Dr. Quinones) Allergies metformin [METFORMIN] Allergy (Intermediate, Verified 06/02/23 12:07) DIARRHEA, NAUSEA Penicillins [PENICILLINS] Allergy (Intermediate, Verified 06/02/23 12:07) RASH canagliflozin [Invokana] Allergy (Unknown, Verified 06/02/23 12:07) rash oxycodone Allergy (Verified 06/02/23 12:07) Unknown HPI HPI Comments History of Present Illness Details Jacki is today for evaluation of her stimulating electrode in the position of the left knee. She went for evaluation under x-ray/C-arm of the stimulating wire curonix/stim wave. It appears to be that electrode a slightly dislodged and no longer position in the proper location. Prior: very pleasant 67 years old female who came to my office with complains on intractable pain in the left lower extremity. She stopped feeling stimulation of the left knee from her curonix/stim wave device. She is status post left total knee replacement with less than adequate results. She reports swelling of the left knee limited range of motion in the left knee and severe pain in anterior as well as posterior surface of the left knee. For the treatment of this condition she had in 2020 performed genicular nerve block. She reported 100% pain improvement. She had for trial of curonix / stim wave with 90% improvement of the mobility and 90% improvement of pain in the knee. The implantation was on 11/12/2020. However about 1 year after the implantation she started to report that the device is no longer helping her. She was recommended to address the issue to the cash posting representative from [employer]. Adjustments were made at this time for stimulation. The patient was after that lost for follow-up. One year after now she came with complains on pain in the left knee and absence of the sensation of the stimulation in the left knee. We decided that I will schedule this patient for examination under fluoroscopy in the injection center next Thursday. [facility] Medical History (Updated 05/13/23 @ 13:18 by Esau Cuellar PA-C) Obese Chronic 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 Chronic pain of left knee Osteoarthritis of knees, bilateral Arthritis Back pain Asthma Obesity (BMI 30-39.9) Vitamin D deficiency Dyslipidemia Anxiety Depression HTN (hypertension) Surgical History S/P total knee arthroplasty History of surgery on wrist History of ear surgery History of hysterectomy History of colonoscopy H/O tubal ligation Family History Father Automobile accident Mother Hypertension Hyperlipidemia Diabetes Brother Diabetes Hyperlipidemia Sister Diabetes Hyperlipidemia Social History Housing: House Alcohol intake: never Patient Tobacco Use Status: Current everyday Tobacco user Tobacco use type: Cigarette Cigarette Packs Per Day: 1 Cigarettes Per Day: 15 Years Smoked: 49 e-Cigarette/Vaping Use: Former Use Second Hand Smoke Exposure: Yes Advance Directives Date on File: 09/18/17 service: No Current occupational status: disabled Cognitive needs: Yes (Pt would like a cane due to her pain in her leg) Hearing needs: Yes (right ear hearing loss) Vision needs: Yes Review of Systems Const All systems reviewed & are unremarkable except as noted in HPI and below Physical Exam Vital Signs: Last Vital Signs Pulse 84 06/02/23 12:06 Resp 14 06/02/23 12:06 BP 120/78 06/02/23 12:06 Pulse Ox 96 06/02/23 12:06 Oxygen Delivery Method Room Air 06/02/23 12:06 BMI result Body Mass Index 28.7 Eyes General: appearance normal, both eyes and all related structures EOM: EOMs intact bilaterally Neck Neck: Yes full ROM Chest Chest palpation & inspection: normal inspection of the chest Resp Effort & Inspection: normal respiratory effort, able to speak in complete sentences, normal respiratory pattern, no audible wheezes and no cough Cardio Jugular venous distension: no JVD GI Inspection: Yes normal to inspection Back/Spine/Pelvis Other: Full range of motion with the knee on the left without any limitation about 120? of flexing and bending.. There is a scar in anterior surface of the left lower extremity very well-healed after total knee replacement. There is no temperature differences between the knees. There is no hair pattern changes. NEUROLOGIC: nonfocal, motor strength normal upper and lower extremities, sensory exam intact. Results Reviewed Results Reviewed: See the images of the 06/02/2023 Assessment & Plan Assessment & Plan (1) Osteoarthritis of knees, bilateral: Code(s): M17.0 - Bilateral primary osteoarthritis of knee (2) Chronic pain of left knee: Code(s): M25.562 - Pain in left knee; G89.29 - Other chronic pain (3) Chronic 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: Code(s): M25.562 - Pain in left knee; G89.29 - Other chronic pain; Z96.652 - Presence of left artificial knee joint Plan She reports stimulation no longer helping her pain. She reports she does not feel stimulation. See the images of 06/02/2023. It looks like that is slightly dislodged. Will get in to consult with desi/edilma Orders: Orders FL guidance in treatment room 06/02/23 G89.29 - Other chronic pain, M25.562 - Pain in left knee, Z96.652 - Presence of left artificial knee joint Coding Level of Care Code Est Pt Level 3 (91113) Diagnoses Osteoarthritis of knees, bilateral M17.0 Chronic pain of left knee M25.562; G89.29 Chronic 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 M25.562; G89.29; Z96.652
[2023-06-02 12:06] VITALS: BP 120/78; PULSE 84; RESP 14; O2SAT 96; BMI 28.7
== END 2023-06-02 12:26 | disposition home or self-care (01) ==
LOC: HO.PMCPRC 12:09
PROVIDERS: PCP Physician Assistant; Visit Provider Anesthesiology
DX: M17.0 Bilateral primary osteoarthritis of knee (principal); M25.562 Pain in left knee; G89.29 Other chronic pain; Z96.652 Presence of left artificial knee joint
CPT/HCPCS: 99213

== ENCOUNTER → 2023-06-09 14:06 | Outpatient (BNVA) | payer OTHER, MEDICAID, SELFPAY | PROVIDERS: PCP Physician Assistant; Visit Provider Anesthesiology | DX: Z96.82 Presence of neurostimulator (principal) | CPT/HCPCS: 99211 ==

== ENCOUNTER 2023-06-15 14:05 | Outpatient (AMB) | payer OTHER, SELFPAY ==
--- NOTE | 2023-06-15 14:36 | AM.OFFVISNUR ---
Intake Intake Visit Reasons: Urodynamics Allergies metformin [METFORMIN] Allergy (Intermediate, Verified 06/09/23 14:24) DIARRHEA, NAUSEA Penicillins [PENICILLINS] Allergy (Intermediate, Verified 06/09/23 14:24) RASH canagliflozin [Invokana] Allergy (Unknown, Verified 06/09/23 14:24) rash oxycodone Allergy (Verified 06/09/23 14:24) Unknown Office Procedures Urodynamic Studies Consent Discussed risk and benefit or proposed procedure with the patient. Information consent for procedure given to the patient. Discussed technical aspects, risks, benefits and alternatives in full. Addressed all of the patient's questions and concerns regarding the procedure. The patient demonstrated knowledge and understanding. They wish to proceed with this procedure. Preparation The patient was prepped in the usual manner. A purse maker was present and in the room. Genitalia was prepped with betadine solution in a sterile manner. Prep: The patient was prepped in the usual manner. A purse maker was present and in the room. Genitalia was prepped with betadine solution in a sterile manner. 33916-Bdgcpuvuswzrwo w/ PAPER TESTING SUPERVISOR 23302-Plvndkb-Ocakrntdbsgr First 54102-Geav/Urinary Muscle Study 56430-Deuaj-Mwdbcwyzg Pressure Test Procedure code (CPT) selection complete Office Meds nitrofurantoin monohydrate/macrocrystals 100 mg capsule Performing Provider: Marcial Beltran MD [place] [facility] [place] [facility] [place] [facility] Administered by: Glen Nair LPN on 06/15/23 14:36 Dose Route Admin Location Dispensed Lot Number Expiration Date NDC Straight Knife Cutter Machine 100 mg PO 1 cap Coding CPT Codes Urodynamic Studies - CPT: 66299-Qenaylhbyfcmia w/ PAPER TESTING SUPERVISOR ([id number]) Urodynamic Studies - CPT: 12886-Mnwogka-Cqxuufbslpxm First ([id number]) Urodynamic Studies - CPT: 26811-Erdf/Urinary Muscle Study ([id number]) Urodynamic Studies - CPT: 80412-Jivjl-Kgjthzfmz Pressure Test ([id number]) Assessment & Plan Assessment & Plan Orders: Orders AMB Urodynamics Studies Today N39.46 - Mixed incontinence AMB Urinalysis Automated Today N39.46 - Mixed incontinence
--- NOTE | 2023-06-15 14:38 | A.OFFVIS_ITS ---
Intake Intake Visit Reasons: Urodynamics Intake Note: Patient presents today for a URODYNAMIC Procedure: Meds: None Allergies to Antibiotic: Penicillin Blood Thinner: None Banking Services Officer Required: No Allergies metformin [METFORMIN] Allergy (Intermediate, Verified 06/09/23 14:24) DIARRHEA, NAUSEA Penicillins [PENICILLINS] Allergy (Intermediate, Verified 06/09/23 14:24) RASH canagliflozin [Invokana] Allergy (Unknown, Verified 06/09/23 14:24) rash oxycodone Allergy (Verified 06/09/23 14:24) Unknown HPI HPI Comments History of Present Illness Details Jacki is a 67-year-old female who presents tdoay to the office for a follow-up. 06/15/2023-- She is followed today for urodynamic procedure. The patient reports no benefits with multiple anticholinergic medications including Myrbetriq, tolteradine, oxybutynin, and Vesicare which she took in the past. The patient states increased urinary frequency. The patient states urinary leakage with coughing. The patient is an active smoker. Interpretation: CMG parameters detailed below. During the filling phase sensory urgency was noted, with mild detrusor instability associated with urge, The patient noted she had reached max bladder capacity was 307 mL and voided 310 mL. Leakage was observed with valsalva and was associated with a small detrusor contraction, leakage was not observed with cough during this testing Findings consistent with sensory urgency with mild detrusor overactivity, Stress urinary incontinence equivocal EMG- Appropriate changes in the waveforms were noted through out the study. There was a decrease in the EMG activity during the voiding c/w normal function of the pelvic floor. Lengthy discussion with the patient regarding findings and plan. Review of chart: Renal US results reviewed--10/08/22-- simple benign bilateral renal cyst negative for stones or solid masses Urine cytology-- collected on 12/08/22-- negative for malignant cells. Evaluation today--Blood: negative, leukocytes: negative. Cystoscopy findings-- Bladder: WNL. Urinary leakage with cough after the procedure. 06/15/2023: Plan: Ordered Gemtesa 75 mg daily Follow-up in 6-7 weeks. [facility] Medical History (Updated 06/15/23 @ 18:13 by Marcial Beltran MD) Obese Chronic 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 Chronic pain of left knee Osteoarthritis of knees, bilateral Arthritis Back pain Asthma Obesity (BMI 30-39.9) Vitamin D deficiency Dyslipidemia Anxiety Depression HTN (hypertension) Surgical History S/P total knee arthroplasty History of surgery on wrist History of ear surgery History of hysterectomy History of colonoscopy H/O tubal ligation Family History Father Automobile accident Mother Hypertension Hyperlipidemia Diabetes Brother Diabetes Hyperlipidemia Sister Diabetes Hyperlipidemia Social History Housing: House Alcohol intake: never Patient Tobacco Use Status: Current everyday Tobacco user Tobacco use type: Cigarette Cigarette Packs Per Day: 1 Cigarettes Per Day: 15 Years Smoked: 49 e-Cigarette/Vaping Use: Former Use Second Hand Smoke Exposure: Yes Advance Directives Date on File: 09/18/17 service: No Current occupational status: disabled Cognitive needs: Yes (Pt would like a cane due to her pain in her leg) Hearing needs: Yes (right ear hearing loss) Vision needs: Yes Review of Systems Const All systems reviewed & are unremarkable except as noted in HPI and below Reports no additional complaints Eyes Reports no additional complaints ENT Reports no additional complaints Card Denies dyspnea Resp Denies cough and Denies dyspnea GI Reports no additional complaints Reports no additional complaints Musc Reports no additional complaints Skin/Breast Denies rash and Denies unusual bruising Neuro Reports no additional complaints Psych Reports no additional complaints Endo Reports no additional complaints Feliberto/Lymph Reports no additional complaints Aller/Immun Reports no additional complaints Office Procedures Urodynamic Studies Consent Discussed risk and benefit or proposed procedure with the patient. Information consent for procedure given to the patient. Discussed technical aspects, risks, benefits and alternatives in full. Addressed all of the patient's questions and concerns regarding the procedure. The patient demonstrated knowledge and understanding. They wish to proceed with this procedure. Preparation The patient was prepped in the usual manner. A fraternity house cook was present and in the room. Genitalia was prepped with betadine solution in a sterile manner. Procedure Complex Uroflow Complex uroflow performed by: Marcial Beltran Maximum urinary flow rate (mL/second): 13 Voiding time (seconds): 25 Voided volume (mL): 131 Residual urine (mL): 3 mL Cystometrogram Void Pressure Vaginal/rectal catheter type: rectal First sensation at (mL): 14 First detrussor pressure (cm H2O): 1.4 First desire at (mL): 244 First desire pressure (cm H2O): 8.5 Maximum fill (mL): 307 Voided with max detrussor pressure of (cm H2O): 22 Maximum flow rate (mL/second): 20 Leak with cough or valsalva - yes 36610-Dksorhxjdvqpja w/ REMOTELY OPERATED VEHICLE 08989-Rxrqvdu-Vdpoumrpajxk First 82688-Jqct/Urinary Muscle Study 68637-Izpzf-Shbyisjhq Pressure Test Procedure code (CPT) selection complete Office Meds nitrofurantoin monohydrate/macrocrystals 100 mg capsule Performing Provider: Marcial Beltran MD Performing Location: [facility] [place] [facility] Administered by: Glen Nair LPN on 06/15/23 14:36 Dose Route Admin Location Dispensed Lot Number Expiration Date [facility] [employer] 100 mg PO 1 cap Results AMB Urinalysis, Automated UA Leukoctes 0 Bruce/uL Last Edit by Glen Nair LPN on 06/15/23 14:38 UA Nitrite Negative Last Edit by Glen Nair LPN on 06/15/23 14:38 UA Urobilinogen 0 mg/dL Last Edit by Glen Nair LPN on 06/15/23 14:38 UA Protein 15 mg/dL Last Edit by Glen Nair LPN on 06/15/23 14:38 UA pH 6.0 Last Edit by Glen Nair LPN on 06/15/23 14:38 UA Blood 0 Nilo/uL Last Edit by Glen Nair LPN on 06/15/23 14:38 UA Specific [place] 1.015 Last Edit by Glen Nair LPN on 06/15/23 14:38 UA Ketone Negative Last Edit by Glen Nair LPN on 06/15/23 14:38 UA Bilirubin 0 mg/dL Last Edit by Glen Nair LPN on 06/15/23 14:38 UA Glucose 0 mg/dL Last Edit by Glen Nair LPN on 06/15/23 14:38 Results Reviewed Results Reviewed: Laboratory Last Values Urine pH (Auto) 6.0 06/15/23 14:37 Specific [place] (Auto) 1.015 06/15/23 14:37 Urine Protein (Auto) 15 mg/dL 06/15/23 14:37 Glucose (UA)(Auto) 0 mg/dL 06/15/23 14:37 Urine Ketones (Auto) Negative 06/15/23 14:37 Urine Blood (Auto) 0 Nilo/uL 06/15/23 14:37 Urine Nitrite (Auto) Negative 06/15/23 14:37 Urine Bilirubin (Auto) 0 mg/dL 06/15/23 14:37 Urine Urobilinogen (Auto) 0 mg/dL 06/15/23 14:37 Leukocyte Esterase (Auto) 0 Bruce/uL 06/15/23 14:37 Assessment & Plan Assessment & Plan (1) Mixed incontinence urge and stress: Code(s): N39.46 - Mixed incontinence (2) Urinary urgency: Code(s): R39.15 - Urgency of urination (3) Nicotine dependence: Code(s): F17.200 - Nicotine dependence, unspecified, uncomplicated Plan Ordered Gemtesa 75 mg daily Follow-up in 6-7 weeks. Orders: Orders AMB Urodynamics Studies Today N39.46 - Mixed incontinence AMB Urinalysis Automated Today N39.46 - Mixed incontinence Medications: New vibegron (Gemtesa) 75 mg PO DAILY 30 tabs 2RF Patient Instructions: The patient had an opportunity to ask questions regarding treatment plan. All questions were answered. Imaging, Laboratory studies and physical exam results were discussed and reviewed in detail. No major barriers to understanding were identified. The patient expressed understanding and agreement with the above treatment plan. The patient is aware they should contact our office by phone for worsening of their current condition or the appearance of new symptoms. Compliance is encouraged with any medications and followup testing that is ordered. It is a privilege to be allowed the opportunity to participate in the urologic care of your patient. If you have any questions or concerns regarding treatment for the above conditions please do not hesitate to contact me. The office telephone contact is [phone]. This note is constructed in part using voice recognition software. While every effort has been made to ensure accuracy paraprofessional aide teacher errors may have been included. Yours sincerely, Marcial Beltran MD Coding Level of Care Code Est Pt Level 3 (36903) Diagnoses Mixed incontinence urge and stress N39.46 Urinary urgency R39.15 Nicotine dependence F17.200 CPT Codes Urodynamic Studies - CPT: 56025-Cmibmufxcdrxqr w/ REMOTELY OPERATED VEHICLE ([id number]) Urodynamic Studies - CPT: 44932-Olhzveu-Wzdfushzjand First ([id number]) Urodynamic Studies - CPT: 22943-Smpz/Urinary Muscle Study ([id number]) Urodynamic Studies - CPT: 07904-Okdpj-Iwslxtvpo Pressure Test ([id number])
== END 2023-06-15 16:02 | disposition home or self-care (01) ==
PROVIDERS: PCP Physician Assistant; Visit Provider Urology
DX: N39.46 Mixed incontinence (principal); F17.200 Nicotine dependence, unspecified, uncomplicated
CPT/HCPCS: 51728; 51741; 51784; 51797

== ENCOUNTER → 2023-06-15 14:05 | Outpatient (BNVA) | payer OTHER, MEDICAID, SELFPAY | PROVIDERS: PCP Physician Assistant; Visit Provider Urology | DX: N39.46 Mixed incontinence (principal); R39.15 Urgency of urination; F17.210 Nicotine dependence, cigarettes, uncomplicated | CPT/HCPCS: 51728; 51741; 51784; 51797; 81003 ==

== ENCOUNTER → 2023-06-19 10:38 | Outpatient (BNVA) | payer OTHER, SELFPAY | PROVIDERS: PCP Physician Assistant; Visit Provider Anesthesiology | DX: R52 Pain, unspecified (principal) | CPT/HCPCS: 99211 ==

== ENCOUNTER 2023-06-29 10:29 | Outpatient (REF) | payer OTHER, SELFPAY | END 2023-06-29 10:30 | disposition home or self-care (01) | LOC: HO.MAMMO 10:29 | PROVIDERS: PCP Physician Assistant; Visit Provider Physician Assistant | DX: Z12.31 Encounter for screening mammogram for malignant neoplasm of breast (principal) | CPT/HCPCS: 77063; 77067 ==

== ENCOUNTER → 2023-06-29 11:00 | Outpatient (BNV) | payer OTHER, SELFPAY | PROVIDERS: PCP Physician Assistant; Visit Provider Radiology Diagnostic Radiology | DX: Z12.31 Encounter for screening mammogram for malignant neoplasm of breast (principal) | CPT/HCPCS: 77063; 77067 ==

== ENCOUNTER 2023-12-10 09:59 | Outpatient (AMB) | payer OTHER, SELFPAY ==
--- NOTE | 2023-12-10 10:00 | MHC.PC.OV ---
Intake Visit Reasons: Medication F/U/[phone] Regulatory Affairs Assistant Required: No Accompanied by: Self / Same As Patient Allergies metformin [METFORMIN] Allergy (Intermediate, Verified 12/10/23 11:25) DIARRHEA, NAUSEA Penicillins [PENICILLINS] Allergy (Intermediate, Verified 12/10/23 11:25) RASH canagliflozin [Invokana] Allergy (Unknown, Verified 12/10/23 11:25) rash oxycodone Allergy (Verified 12/10/23 11:25) Unknown Medication List - Last Reconciled 12/10/23 by Esau Cuellar PA-C albuterol sulfate 2.5 mg (3 mL) inhalation Q6H 30 days albuterol sulfate 90 mcg/actuation (Ventolin HFA) 1 inh inhalation QID 30 days aripiprazole 15 mg PO BEDTIME atorvastatin 40 mg PO DAILY BD Ultra-Fine Rebeca Pen Needle (pen needle, diabetic) 1 ea miscellaneous DAILY 90 days NS cholecalciferol (vitamin D3) 25 mcg PO DAILY 90 days clonazepam 0.5 mg PO BID escitalopram oxalate 20 mg PO DAILY flash glucose scanning reader (Faraday BicyclesStyle Piyush 2 [place]) As directed flash glucose sensor (FreeStyle Piyush 2 Sensor kit) As directed hydroxyzine HCl 25 mg PO BID PRN 30 days liraglutide (Victoza 3-Willy) 0.6 mg (0.1 mL) subcut DAILY 30 days lisinopril-hydrochlorothiazide 20-12.5 mg 1 tab PO DAILY 90 days loperamide 2 mg PO QID PRN meloxicam 15 mg PO DAILY 30 days pantoprazole 20 mg PO DAILY tizanidine 2 mg PO Q8H PRN 90 days trazodone 100 mg PO BEDTIME vibegron (Gemtesa) 75 mg PO DAILY Tobacco use date assessed: 12/10/23 HPI Medication F/U/[phone] HPI Details Patient is a 68-year-old female being evaluated today via telephone only. She is currently temporarily living in [place] to take care of a sick family member. She has lost follow-up with her psychiatrist and now needs her mental health medications refilled and sent to [place]. .. CHRONIC MEDICAL CONDITIONS--> Smoker:? Unfortunately patient continues to smoke and does not want to quit at this time. ? .. ? DMII: Patient reports her blood sugars have been controlled most recent A1c acceptable . Has lost significant amount of weight due to having dental issues and not being able to eat well. ?Continues on injections of Victoza now at lower dose due to previous episodes of hypoglycemia ? .. ?Hypertension:? Blood pressure today in office acceptable problem.? She reports she is monitoring blood pressure at home reports 110s to 120 systolic.? Otherwise denies any chest discomforts, headaches or dizziness.? She does report shortness of breath on exertion likely secondary to her years of smoking. [facility] Medical History Obese Chronic 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 Chronic pain of left knee Osteoarthritis of knees, bilateral Arthritis Back pain Asthma Obesity (BMI 30-39.9) Vitamin D deficiency Dyslipidemia Anxiety Depression HTN (hypertension) Surgical History S/P total knee arthroplasty History of surgery on wrist History of ear surgery History of hysterectomy History of colonoscopy H/O tubal ligation Family History Father Automobile accident Mother Hypertension Hyperlipidemia Diabetes Brother Diabetes Hyperlipidemia Sister Diabetes Hyperlipidemia Social History Housing: House Alcohol intake: never Patient Tobacco Use Status: Current everyday Tobacco user Tobacco use type: Cigarette Cigarette Packs Per Day: 1 Cigarettes Per Day: 9 Years Smoked: 49 Packs Per Year: 49 Packs per year/per ci.05 e-Cigarette/Vaping Use: Former Use Second Hand Smoke Exposure: Yes Advance Directives Date on File: 09/18/17 service: No Current occupational status: disabled Cognitive needs: Yes (Pt would like a cane due to her pain in her leg) Hearing needs: Yes (right ear hearing loss) Vision needs: Yes Questionnaire PHQ-9 Over the last 2 weeks, how often have you been bothered by any of the following problems? 1. Little interest or pleasure in doing things: more than half the days 2. Feeling down, depressed, or hopeless: nearly every day 3. Trouble falling or staying asleep, or sleeping too much: nearly every day 4. Feeling tired or having little energy: not at all 5. Poor appetite or overeating: not at all 6. Feeling bad about yourself - or that you are a failure or have let yourself or your family down: not at all 7. Trouble concentrating on things, such as reading the newspaper or watching television: more than half the days 8. Moving or speaking so slowly that other people could have noticed. Or the opposite - being so fidgety or restless that you have been moving around a lot more than usual: nearly every day 9. Thoughts that you would be better off or of hurting yourself in some way: not at all Total score: 13 70444 - PHQ-9 Billing: Yes Source: Developed by Drs. Hair Briscoe, Quin Bell, Ricci Burleson and colleagues, with an educational jim from [employer]. Thrive Questionnaire Date Thrive assessed: 12/10/23 I am a: Patient What is your living situation today?: I have a steady place to live Within the past 12 months, did the food you bought not last and you didn't have the money to get more?: Never true Within the past 12 months, did you worry whether your food would run out before you got money to buy more?: Never true Do you have trouble paying for medicines?: No Do you have trouble getting transportation to medical appointments?: No Do you have trouble paying your heating and electricity bill?: No Do you have trouble taking care of your child, family member or friend?: No Do you have trouble with day-to-day activities such as bathing, preparing meals, shopping, managing finances, etc.?: No Are you currently unemployed and looking for a job?: No Are you interested in more education?: No Please select the resources that you would like help with: None Currently or been in a relationship where the following occur: no concerns reported THRIVE Score: 0 AUDIT C Alcohol Use Questionnaire (AUDIT-C) 1. How often do you have a drink containing alcohol?: 2-3 times a week 2. How many drinks containing alcohol do you have on a typical day when you are drinking?: 3 or 4 3. How often do you have six or more drinks on one occasion?: Monthly Total Score: 6 EVA-7 AMB Questionnaire EVA-7 Date EVA - 7 assessed: 12/10/23 Feeling nervous, anxious, or on edge: 3 = Nearly every day Not being able to stop or control worryin = Several days Worrying too much about different things: 3 = Nearly every day Trouble relaxin = More than half the days Being so restless that it is hard to sit still: 3 = Nearly every day Becoming easily annoyed or irritable: 3 = Nearly every day Feeling afraid as if something awful might happen: 2 = More than half the days Total EVA-7 score (0-4 normal; 5-9 mild; 10-14 moderate; 15-21 severe): 17 Source: Developed by Drs. Hair Briscoe, Quin Bell, Ricci Burleson and colleagues, with an educational jim from [employer]. EVA-7 Assessment Billing EVA-7 Assessment Tool: EVA-7 Assessment 44160 Review of Systems Const Denies headache(s) Eyes Denies loss of vision ENT Denies vertigo, Denies dizziness, Denies headache(s) and Denies sore throat Card Denies chest pain, Denies leg edema and Denies lightheadedness Resp Denies cough, Denies hemoptysis and Denies wheezing GI Denies abdominal pain, Denies melena, Denies constipation, Denies diarrhea and Denies vomiting Denies urinary frequency, Denies dysuria and Denies urinary urgency Musc Denies arthralgias, Denies joint swelling, Denies numbness and Denies tingling Neuro Denies behavioral changes, Denies vertigo, Denies dizziness, Denies headache(s), Denies loss of vision, Denies memory loss, Denies numbness and Denies tingling Psych Denies anxiety, Denies behavioral changes, Denies depression, Denies memory loss and Denies panic attacks Feliberto/Lymph Denies easy bleeding and Denies easy bruising Aller/Immun Denies wheezing Physical exam (Primary Care) Tobacco/Smoking Status: Tobacco use Status Tobacco use date assessed 12/10/23 12/10/23 10:08 Patient Tobacco Use Status Current everyday Tobacco 12/10/23 10:08 Tobacco use type Cigarette 12/10/23 10:08 e-Cigarette/Vaping Use Former Use 12/10/23 10:08 Are you ready to quit: No Tobacco cessation counseling provided: Yes Items discussed: Nicotine replacement and QuitWorks Relapse Prevention: discussed the importance of a supportive environment, discussed negative mood or depression after quitting, weight gain after smoking is common and discussed dietary, exercise and/or lifestyle changes Number of minutes spent counselin CPT code: 72128 - 4-10 Minutes PHQ-9: PHQ-9 Score PHQ-9: Total score 13 12/10/23 11:37 Thrive Assessment: Date of Thrive Assessment Date Thrive assessed 12/10/23 12/10/23 10:08 Currently or been in a relationship where the following occur: no concerns reported Telehealth Telehealth Telehealth Platform: Telephone Location of provider rendering services: practice address Location of patient: other ([place]) Patient Identification confirmed using: Name, : Yes Telehealth method: voice only Patient verbally consented to treatment: Yes Patient verbally consented to billing insurance company: Yes Patient informed of any privacy concerns related to visit: Yes Minutes spent on Phone/Video with Pt.: 11 Assessment and Plan Assessment & Plan (1) DMII (diabetes mellitus, type 2): Code(s): E11.9 - Type 2 diabetes mellitus without complications Qualifiers: 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 Now currently temporarily staying in [place]. She will get labs when she comes back into the [facility]. Again goal A1c is to be below 7.0 (2) Nicotine dependence: Code(s): F17.200 - Nicotine dependence, unspecified, uncomplicated Qualifiers: Nicotine product type: cigarettes Substance use status: unspecified nicotine-induced disorder Qualified Code(s): F17.219 - Nicotine dependence, cigarettes, with unspecified nicotine-induced disorders Plan: Unfortunately patient continues to smoke and does understand she needs to quit. Have continue to offer her nicotine replacement though she declines. She has no desire to quit smoking at this time. (3) Bipolar depression: Code(s): F31.9 - Bipolar disorder, unspecified Plan: Has lost follow-up with her psychiatrist and now needs PCP to manage and prescribe her mental health medications. Explained to her that I can not prescribe her clonazepam to pharmacy is in [place] and will discuss the need for clonazepam further when she [place]. Coding Level of Care Code Tele Est Pt Level 4 (68608) Diagnoses Type 2 diabetes mellitus without complication, with long-term current use of insulin E11.9; Z79.4 Diabetes mellitus longterm insulin use: with telecommunication equipment repairer use Diabetes mellitus complication status: without complication Cigarette nicotine dependence with nicotine-induced disorder F17.219 Nicotine product type: cigarettes Substance use status: unspecified nicotine-induced disorder Bipolar depression F31.9 Additional Codes EVA-7 Assessment Billing - EVA-7 Assessment Tool: EVA-7 Assessment 08410 ([id number]) Vital Signs *Quality* - CPT code: 68797 - 4-10 Minutes ([id number])
== END 2023-12-10 16:03 | disposition home or self-care (01) ==
LOC: HO.HMGH 09:59
PROVIDERS: PCP Physician Assistant; Visit Provider Physician Assistant
DX: E11.9 Type 2 diabetes mellitus without complications (principal); Z79.4 Long term (current) use of insulin; F31.9 Bipolar disorder, unspecified; F17.219 Nicotine dependence, cigarettes, with unspecified nicotine-induced disorders
CPT/HCPCS: 99214

== ENCOUNTER 2024-12-31 10:44 | Inpatient (IN) | payer MEDICARE, SELFPAY ==
--- NOTE | 2024-12-31 | ECG_ITS ---
Test Reason : CHEST PAIN Blood Pressure : */* mmHG Vent. Rate : 69 BPM Atrial Rate : 69 BPM P-R Int : 162 ms QRS Dur : 76 ms QT Int : 374 ms P-R-T Axes : 58 -6 37 degrees QTcB Int : 400 ms Normal sinus rhythm Minimal voltage criteria for LVH, may be normal variant ( R in aVL ) Borderline ECG When compared with ECG of 17-Nov-2018 12:07, Nonspecific T wave abnormality, improved in Lateral leads Referred By: Generic ED Physician Electronically Signed By: TIMBO LOPEZ MD
--- NOTE | ~2024-12-31 | MR_ITS ---
EXAMINATION: MR BRAIN WITH CONTRAST CLINICAL INFORMATION: Ataxia. Dizziness. Concerning demyelinating lesions. COMPARISON: December 31, 2024. TECHNIQUE: Sagittal FLAIR sequence. Axial and coronal T1 postcontrast sequences. Intravenous contrast: (Gadavist) 7.5 mL. No reported immediate complications. FINDINGS: No abnormal enhancement within the intra-axial or the extra-axial compartment of the cranium. Multifocal patchy and ovoid shaped perpendicularly oriented to the corpus callosum deep periventricular white matter subcortical white matter hyperintense FLAIR signal abnormality. Patchy hyperintense FLAIR signal in the dio. MR/MR head/brain w con IMPRESSION: No enhancing lesion. Electronically signed by: Nestor Servin MD 01/02/2025 03:32 PM EDT
--- NOTE | ~2024-12-31 | CT_ITS ---
CLINICAL HISTORY: dizziness, blurred vision, neck pain --- Additional Notes or Special Instructions: evaluate for dissection CT Head without contrast. CT angiography head and neck with contrast. 3D Postprocessing. Comparison: None Findings: HEAD CT: No intra-axial mass, midline shift, hydrocephalus, or acute hemorrhage. Appropriate brain volume. [id number] white matter disease. Small mucous retention cyst within the left maxillary sinus. The orbits are within normal limits. There is no acute fracture. HEAD AND NECK CTA: Aortic arch and cervical great vessels are patent. Minimal calcific plaque formation involving the bilateral carotid bulbs. Intracranial arteries are patent. No dissection, stenosis or occlusion. There is a 7 mm aneurysm of the right middle cerebral artery at the junction between the M1 and M2 segments. There is a 6 mm aneurysm of the left middle cerebral artery at the junction between the M1 and M2 segments. No abnormal intracranial enhancement. There is a 16 mm nodule within the left lobe of the thyroid gland. No cervical mass or fluid collection. Lung apices clear. No acute fracture. IMPRESSION: 1. No acute abnormality of the brain. 2. 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 3. Patent head and neck CTA. 4. 16 mm nodule within the left lobe of the thyroid gland. Recommend further evaluation with ultrasound when clinically appropriate. This document has been electronically signed by: Gali Coughlin MD on 12/31/2024 15:09:21
--- NOTE | ~2024-12-31 | MR_ITS ---
CLINICAL HISTORY: Ataxia x3 days, dizziness, patient change MR Brain without gadolinium Comparison: CT/SR - CT ANGIO HEAD NECK - 12/31/24 14:10 EDT Findings: No restricted diffusion. There are innumerable foci of T2 hyperintensity within the white matter with involvement of both the deep and superficial white matter. Small foci of T2 hyperintensity within the right side of the dio. No intra-axial mass or hemorrhage. No midline shift. No hydrocephalus. Vascular flow voids are intact. There are aneurysms of the bilateral middle cerebral arteries. Orbital contents are unremarkable. Mild mucosal thickening within the left maxillary sinus. No focal bone lesion. IMPRESSION: 1. Innumerable T2 hyperintensities within the white matter with an appearance raising the possibility of a demyelinating process. 2. There are aneurysms of the bilateral middle cerebral arteries. Please see dedicated CTA report for further details. This document has been electronically signed by: Gali Coughlin MD on 12/31/2024 19:09:08
--- NOTE | ~2024-12-31 | XR_ITS ---
CLINICAL HISTORY: cp 2 view chest x-ray Comparison: None Findings: The lungs are clear. Heart size is normal. No acute fracture. IMPRESSION: 1. No acute findings. This document has been electronically signed by: Sanjana Mayes MD on 12/31/2024 12:26:51
[2024-12-31 11:13] VITALS: BP 188/78; PULSE 71; RESP 18; TEMP 36.6; O2SAT 99; BMI 29.4
--- NOTE | 2024-12-31 11:17 | ED.CHESTPAIN ---
HPI - Chest Pain General Chief Complaint: General Medical Stated Complaint: Chest pain, neck pain, dizziness Time Seen by Provider: 12/31/24 12:50 Source: patient Mode of arrival: ambulatory Limitations: no limitations History of Present Illness ED Provider: Tuan Yoon DO HPI narrative: 69-year-old female with past medical history of hypertension and fhn-[id number] diabetes who recently moved from [place] presents to the emergency department due to orthostatic dizziness that developed today as well as left-sided neck pain that worsens with movement for the past 2 or 3 days as well as a right temporal headache for the past few days as well as blurred vision without vision loss or double vision as well months of constant tight left-sided chest pain that worsens at nighttime but does not worsen with exertion. Patient denies other associated symptoms including fevers, shortness of breath, nausea, vomiting, abdominal pain, diarrhea or recent illnesses. She denies any new medications. She denies similar symptoms in the past. She states her dizziness is not present at rest. She denies weakness or numbness of her arms or legs. She denies pain with chewing or with brushing her hair. Changes in hearing, tinnitus, changes in speech or any additional symptoms today. Related Data Home Medications ?Medication ?Instructions ?Recorded ?Confirmed clonazepam 0.5 mg tablet 0.5 mg PO BID 07/18/20 12/10/23 Previous Rx's ?Medication ?Instructions ?Recorded flash glucose scanning reader #1 ea 05/01/22 (FreeStyle Piyush 2 [place]) flash glucose sensor (FreeStyle #1 ea 05/01/22 Piyush 2 Sensor kit) BD Ultra-Fine Rebeca Pen Needle 32 1 ea miscellaneous DAILY 90 days 05/27/22 gauge x 5/32 (pen needle, #100 ea diabetic) tizanidine 2 mg tablet 2 mg PO Q8H PRN muscle spasticity 11/03/22 90 days #270 tabs loperamide 2 mg capsule 2 mg PO QID PRN loose stool #120 04/26/23 caps albuterol sulfate 2.5 mg/3 mL 2.5 mg (3 mL) inhalation Q6H 30 05/13/23 (0.083 %) solution for nebulization days #360 mL albuterol sulfate 90 mcg/actuation 1 inh inhalation QID 30 days #8.5 05/13/23 aerosol inhaler (Ventolin HFA) grams meloxicam 15 mg tablet 15 mg PO DAILY 30 days #30 tabs 07/16/23 trazodone 100 mg tablet 100 mg PO BEDTIME #90 tabs 07/23/23 vibegron 75 mg tablet (Gemtesa) 75 mg PO DAILY #90 tabs 09/15/23 cholecalciferol (vitamin D3) 25 25 mcg PO DAILY 90 days #90 caps 12/21/23 mcg (1,000 unit) capsule aripiprazole 15 mg tablet 15 mg PO BEDTIME 90 days #90 tabs 12/22/23 escitalopram oxalate 20 mg tablet 20 mg PO DAILY #90 tabs 12/22/23 hydroxyzine HCl 25 mg tablet 25 mg PO BID PRN sleep 30 days #60 12/22/23 tabs liraglutide 0.6 mg/0.1 mL (18 mg/3 0.6 mg (0.1 mL) subcut DAILY 30 12/22/23 mL) subcutaneous pen injector days #3 mL (Victoza 3-Willy) lisinopril 20 1 tab PO DAILY 90 days #90 tabs 12/22/23 mg-hydrochlorothiazide 12.5 mg tablet pantoprazole 20 mg tablet,delayed 20 mg PO DAILY #90 tabs 12/22/23 release atorvastatin 40 mg tablet 40 mg PO DAILY #90 tabs 06/15/24 Allergies Allergy/AdvReac Type Severity Reaction Status Date / Time metformin [METFORMIN] Allergy Intermediate DIARRHEA, Verified 12/31/24 11:15 NAUSEA Penicillins [PENICILLINS] Allergy Intermediate RASH Verified 12/31/24 11:15 canagliflozin [Invokana] Allergy Unknown rash Verified 12/31/24 11:15 oxycodone Allergy Unknown Verified 12/31/24 11:15 Review of Systems Review of Systems: Yes all other systems are reviewed and are negative [facility] Past Medical History Medical History (Updated 12/31/24 @ 20:23 by Tuan Yoon DO) HTN (hypertension) Dyslipidemia Asthma Nicotine dependence Obese Chronic 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 Chronic pain of left knee Osteoarthritis of knees, bilateral Arthritis Back pain Obesity (BMI 30-39.9) Vitamin D deficiency Anxiety Depression Surgical History S/P total knee arthroplasty History of surgery on wrist History of ear surgery History of hysterectomy History of colonoscopy H/O tubal ligation Family History Family History Father Automobile accident Mother Hypertension Hyperlipidemia Diabetes Brother Diabetes Hyperlipidemia Sister Diabetes Hyperlipidemia Social History Social History Housing: House Alcohol intake: never Patient Tobacco Use Status: Current everyday Tobacco user Tobacco use type: Cigarette Cigarette Packs Per Day: 1 Cigarettes Per Day: 9 Years Smoked: 49 e-Cigarette/Vaping Use: Former Use Second Hand Smoke Exposure: Yes Advance Directives: No Advance Directives Information Provided: No Advance Directives Date on File: 09/18/17 service: No Current occupational status: disabled Cognitive needs: Yes (Pt would like a cane due to her pain in her leg) Hearing needs: Yes (right ear hearing loss) Vision needs: Yes Physical Exam Vital Signs: Vital Signs: Last Vital Signs Temp 98.4 F 12/31/24 19:21 Pulse 65 12/31/24 19:21 Resp 18 12/31/24 19:21 BP 159/75 H 12/31/24 19:21 Pulse Ox 96 12/31/24 19:21 O2 Del Method Room Air 12/31/24 19:21 BMI result Body Mass Index 29.4 Constitutional: Alert, oriented, speaking in full sentences HEENT: Normocephalic, atraumatic. There is mild tenderness over the temporal region on the right side without overlying skin changes. Moist mucous membranes Eyes: PERRL, EOMI, vision bilaterally is 20/30 with glasses on Neck: Supple, nontender Chest: No chest wall tenderness Respiratory: Lungs clear to auscultation, no increased work of breathing Cardio: Regular rate and rhythm, no murmur, 2+ radial and DP pulses symmetrically GI: Soft, nondistended, nontender Back: Normal range of motion, nontender Skin: No rash, no lesions Neuro: Mental Status: Patient is alert, attentive, and fully oriented Speech: Clear and fluent CN II: Visual stock are full, pupils are equal and briskly reactive to light CN III, IV, : Extra ocular motions are intact in all directions. No ptosis. CN V: Facial sensation intact, both upper and lower face CN VII: Symmetric facial movements CN VIII: Hearing is grossly normal CN IX, X: Symmetric elevation of palate, normal phonation CN XI: Shoulder shrug 5/5 strength bilaterally CN XII: Tongue protrudes midline Motor: No pronator drift bilaterally. 5/5 strength all 4 extremities. Normal muscle bulk and tone. Sensory: Sensation intact all 4 extremities to light touch without reported paresthesias. Coordination: No dysmetria on finger to nose bilaterally. No truncal ataxia noted. However, the patient does have ataxia with ambulation and can not perform [id number] without almost falling over Extremities: No swelling or tenderness, full range of motion Psych: Calm, alert and cooperative, appropriate behavior Course Course Course Narrative: Pao Krishnamurthycandedonavon [employer] WORK[employer] 12/31 1117 This is a rapid medical exam. Deferred additional HPI, ROS, PE to primary provider. 69 yo female with a history of HTN, DM here with complaints of blurry vision, dizziness, headache, neck pain for several days. Has had chest tightness for weeks. Will obtain labs, EKG, CXR VSS with exception of HTN. Did not take home meds. Medications Administered Discontinued Medications Generic Name Dose Route Start Last Admin Trade Name Freq PRN Reason Stop Dose Admin Iohexol 100 ml 12/31/24 14:22 12/31/24 14:22 Iohexol 350 Mg/Ml 100 Ml Infus..Btl IV 12/31/24 14:23 70 ml ONCE ONE Administration Ketorolac Tromethamine 15 mg 12/31/24 13:42 12/31/24 13:58 Ketorolac Tromethamine 15 Mg/Ml Vial IVPUSH 12/31/24 13:43 15 mg ONCE ONE Administration Lidocaine 1 patch 12/31/24 13:45 12/31/24 13:59 Lidocaine 4 % Patch Adh..Patch TRANSDERMA 12/31/24 13:46 1 patch ONCE ONE Administration Protocol Medical Decision Making Medical Decision Making MDM Narrative: Well-appearing vitally stable female presenting with multiple subacute and acute symptoms. When asked specifically, the patient does not have any vision loss and bilateral vision a similar. I have very low suspicion for giant cell arteritis. We will further evaluate with ESR and CRP. Additionally, I have no suspicion for ACS or other dangerous etiologies of chest discomfort given that it has been present for several months and without exertion. Additionally, troponin and ECG are unremarkable. Given the patient's dizziness upon standing, although neurologic exam is completely benign, there is consideration for subacute TIA or stroke and therefore we will image with CT angiography of the head and neck. No acute findings of CT. Incidentals including thyroid nodule and aneurysms were discussed with the patient. The patient attempted to walk out of the emergency department and continued to have ataxia. This was after we had ordered the MRI of the brain. I was able to redirect the patient and she was cooperative to undergo imaging due to concern for small-vessel stroke or other acute abnormality of the brain. MRI does show possible demyelinating disorder. Given these findings, the patient will be admitted and will require neurologic evaluation. She agrees with this plan. Case reviewed with hospitalist who also agrees. Admission/Observation Consideration of admission/observation: Escalation of care including admission/observation considered Lab Data 12/31/24 11:33 12/31/24 11:33 Labs: Lab Results 12/31/24 12/31/24 Range/Units 11:33 14:00 WBC 10.0 (4.8-10.8) X10*3/uL RBC 4.17 L (4.20-5.50) X10*6/uL Hgb 12.4 (12.0-16.0) g/dl Hct 37.0 (37.0-47.0) % MCV 88.7 (80.0-98.0) fL MCH 29.7 (27.0-33.0) pg MCHC 33.5 (31.0-35.0) g/dl RDW 13.4 (11.0-16.0) % Plt Count 200 (160-400) X10*3/uL MPV 10.4 (9.4-12.3) fL Immature Gran % (Auto) 0.6 H (0.0-0.4) % Neut % (Auto) 61.1 (45-73) % Lymph % (Auto) 28.7 (20-40) % Foster % (Auto) 6.5 (2-11) % Eos % (Auto) 2.5 (0-4) % Baso % (Auto) 0.6 (0-2) % Lymph # (Auto) 2.9 (1.2-4.9) X10*3/uL Foster # (Auto) 0.7 (0.1-1.2) X10*3/uL Eos # (Auto) 0.3 (0.0-0.4) X10*3/uL Baso # (Auto) 0.1 (0.0-0.2) X10*3/uL Abs Immat Gran (auto) 0.06 H (0.00-0.03) X10*3/uL Absolute Neuts (auto) 6.1 (2.0-8.3) x10*3/uL Absolute Nucleated RBC 0.000 (0.0-0.012) X10*3/uL Nucleated RBC % (auto) 0.0 (0.0-0.2) /100WBC ESR 13 (0-20) MM/HR Sodium 141 (135-145) mmol/L Potassium 4.6 (3.3-5.1) mmol/L Chloride 106 (96-108) mmol/L Carbon Dioxide 26 (22-29) mmol/L Anion Gap 14 (12-20) BUN 16 (9-16) mg/dL Creatinine 1.08 (0.5-1.4) mg/dL Estim Creat Clear Calc 45.9 Estimated GFR 50 Random Glucose 96 (60-115) mg/dL Calcium 10.2 (8.4-10.2) mg/dL Total Bilirubin 0.4 (0.0-1.0) mg/dL Direct Bilirubin 0.1 (0.0-0.5) mg/dL AST 26 (5-31) U/L ALT 32 H (0-31) U/L Alkaline Phosphatase 90 (39-117) U/L Troponin I High Sens < 2.7 (<3.5-17.0) ng/L Total Protein 7.4 (6.5-8.0) g/dL Albumin 4.3 (3.5-5.0) g/dL Independent Interpretation I performed an independent interpretation of an: EKG and Plain X-Ray ( Chest x-ray per my independent interpretation shows no acute cardiopulmonary abnormalities.) Interpretation: Sinus rhythm at 69 beats per minute,, unremarkable intervals, borderline LVH, no diagnostic ST or T-wave abnormalities, compared to prior dated 11/17/2018 there are no significant changes Radiology Impression Discussion of test interpretation with radiology: I have reviewed the radiologist's reading. Radiologist Impression: Findings: HEAD CT: No intra-axial mass, midline shift, hydrocephalus, or acute hemorrhage. Appropriate brain volume. [id number] white matter disease. Small mucous retention cyst within the left maxillary sinus. The orbits are within normal limits. There is no acute fracture. HEAD AND NECK CTA: Aortic arch and cervical great vessels are patent. Minimal calcific plaque formation involving the bilateral carotid bulbs. Intracranial arteries are patent. No dissection, stenosis or occlusion. There is a 7 mm aneurysm of the right middle cerebral artery at the junction between the M1 and M2 segments. There is a 6 mm aneurysm of the left middle cerebral artery at the junction between the M1 and M2 segments. No abnormal intracranial enhancement. There is a 16 mm nodule within the left lobe of the thyroid gland. No cervical mass or fluid collection. Lung apices clear. No acute fracture. IMPRESSION: 1. No acute abnormality of the brain. 2. 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 3. Patent head and neck CTA. 4. 16 mm nodule within the left lobe of the thyroid gland. Recommend further evaluation with ultrasound when clinically appropriate. 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 Patient Disposition: Admitted As Inpatient Prescriptions: No Action pen needle, diabetic [BD Ultra-Fine Rebeca Pen Needle] 32 gauge x 5/32 needle 1 ea miscellaneous DAILY 90 Days Qty: 100 2RF tizanidine 2 mg tablet 2 mg PO Q8H PRN (Reason: muscle spasticity) 90 Days Qty: 270 1RF loperamide 2 mg capsule 2 mg PO QID PRN (Reason: loose stool) Qty: 120 2RF meloxicam 15 mg tablet 15 mg PO DAILY 30 Days Qty: 30 1RF trazodone 100 mg tablet 100 mg PO BEDTIME Qty: 90 1RF Gemtesa 75 mg tablet 75 mg PO DAILY Qty: 90 3RF cholecalciferol (vitamin D3) 25 mcg (1,000 unit) capsule 25 mcg PO DAILY 90 Days Qty: 90 1RF aripiprazole 15 mg tablet 15 mg PO BEDTIME 90 Days Qty: 90 1RF escitalopram oxalate 20 mg tablet 20 mg PO DAILY Qty: 90 1RF lisinopril-hydrochlorothiazide 20-12.5 mg tablet 1 tab PO DAILY 90 Days Qty: 90 2RF Victoza 3-Willy 0.6 mg/0.1 mL (18 mg/3 mL) pen injector 0.6 mg subcut DAILY 30 Days Qty: 3 3RF hydroxyzine HCl 25 mg tablet 25 mg PO BID PRN (Reason: sleep) 30 Days Qty: 60 1RF pantoprazole 20 mg tablet,delayed release (DR/EC) 20 mg PO DAILY Qty: 90 2RF atorvastatin 40 mg tablet 40 mg PO DAILY Qty: 90 0RF (DME) FreeStyle Piyush 2 Sensor Kit See Rx Instructions .Route Qty: 1 3RF Rx Instructions: As directed (DME) FreeStyle Piyush 2 [place] Misc See Rx Instructions .Route Qty: 1 0RF Rx Instructions: As directed albuterol sulfate 2.5 mg /3 mL (0.083 %) solution for nebulization 2.5 mg inhalation Q6H 30 Days Qty: 360 3RF albuterol sulfate [Ventolin HFA] 90 mcg/actuation HFA aerosol inhaler 1 inh inhalation QID 30 Days Qty: 8.5 3RF clonazepam 0.5 mg tablet 0.5 mg PO BID Print Language: Croatian
[2024-12-31 11:39] LABS: MANUAL DIFF FLAG NO
[2024-12-31 11:41] LABS: Basophils Absolute Auto 0.1 X10*3/uL (0.0-0.2); Basophils Percent Auto 0.6 % (0-2); Eosinophils Absolute Auto 0.3 X10*3/uL (0.0-0.4); Eosinophils Percent Auto 2.5 % (0-4); Hemoglobin 12.4 g/dl (12.0-16.0); Imm Gran Abs Auto 0.06 X10*3/uL (0.00-0.03); Imm Gran Pct Auto 0.6 % (0.0-0.4); Lymphocytes Absolute Auto 2.9 X10*3/uL (1.2-4.9); Lymphocytes Percent Auto 28.7 % (20-40); Mean Corpuscular HGB Conc 33.5 g/dl (31.0-35.0); Mean Corpuscular Hemoglobin 29.7 pg (27.0-33.0); Mean Corpuscular Volume 88.7 fL (80.0-98.0); Mean Platelet Volume 10.4 fL (9.4-12.3); Monocytes Absolute Auto 0.7 X10*3/uL (0.1-1.2); Monocytes Percent Auto 6.5 % (2-11); Neutrophils Absolute Auto 6.1 x10*3/uL (2.0-8.3); Neutrophils Percent Auto 61.1 % (45-73); Platelet Count 200 X10*3/uL (160-400); Red Blood Count 4.17 X10*6/uL (4.20-5.50); Red Cell Distribution Width 13.4 % (11.0-16.0)
[2024-12-31 11:57] LABS: Alanine Aminotransferase 32 U/L (0-31); Albumin Level 4.3 g/dL (3.5-5.0); Alkaline Phosphatase 90 U/L (39-117); Anion Gap 14 (12-20); Aspartate Amino Transferase 26 U/L (5-31); Bilirubin Direct 0.1 mg/dL (0.0-0.5); Bilirubin Total 0.4 mg/dL (0.0-1.0); Blood Urea Nitrogen 16 mg/dL (9-16); Calcium 10.2 mg/dL (8.4-10.2); Carbon Dioxide 26 mmol/L (22-29); Chloride 106 mmol/L (96-108); Creatinine Clr Calc Pharmacy 45.9; Estimated Glomerular Filt Rate 50; Glucose Random 96 mg/dL (60-115); Potassium 4.6 mmol/L (3.3-5.1); Sodium 141 mmol/L (135-145); Total Protein 7.4 g/dL (6.5-8.0)
[2024-12-31 12:01] LABS: Troponin-I High Sensitivity < 2.7 ng/L (<3.5-17.0)
[2024-12-31 13:53] VITALS: BP 212/91; PULSE 68; RESP 18; O2SAT 98
[2024-12-31 13:56] VITALS: BP 211/86; PULSE 60; RESP 18; O2SAT 99
[2024-12-31] MEDS: Ketorolac Tromethamine 15 MG/ML VIAL IVPUSH (13:58)
[2024-12-31] MEDS: Lidocaine 4 % Patch ADH..PATCH 1 PATCH TRANSDERMA (13:59)
[2024-12-31] MEDS: iohexoL 350 MG/ML 100 ML INFUS..BTL IV (14:22)
[2024-12-31 14:45] LABS: Erythrocyte Sedimentation Rate 13 MM/HR (0-20)
[2024-12-31 14:47] VITALS: BP 186/73; PULSE 62; RESP 18; TEMP 36.6; O2SAT 98
[2024-12-31 19:21] VITALS: BP 159/75; PULSE 65; RESP 18; TEMP 36.9; O2SAT 96
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
[2024-12-31 20:24] LABS: Magnesium 1.7 mg/dL (1.6-2.6)
[2024-12-31 20:39] LABS: Thyroid Stimulating Hormone 0.67 uIU/mL (0.32-4.0)
[2024-12-31] MEDS: Enoxaparin Sodium 40 MG/0.4 ML SYRINGE SUBCUT (20:58)
[2024-12-31] MEDS: methylPREDNISolone Sod Succ 1,000 MG in 0.9 % Sodium Chloride 50 ML 66 MG IV (20:59)
[2024-12-31] MEDS: Nicotine 14 MG PATCH.TD24 TRANSDERMA (20:59)
[2024-12-31] MEDS: NaPROXEN 500 MG TABLET PO (21:00)
[2024-12-31] MEDS: LORazepam 0.5 MG TABLET PO (21:04)
[2024-12-31 22:00] VITALS: RESP 16
[2024-12-31] MEDS: Acetaminophen 325 MG TABLET 650 MG PO (22:18)
[2024-12-31 22:19] LABS: Glucose, Whole Blood 171 mg/dL (60-115)
[2024-12-31] MEDS: Insulin Lispro 100 UNIT/ML 3 ML VIAL SUBCUT (22:21)
[2025-01-01] VITALS (9 sets, daily range): BP systolic 109–180; BP diastolic 56–86; PULSE 68–86; RESP 14–18; TEMP 36.4–37.1; O2SAT 94–99; BMI 30.2
[2025-01-01] MEDS: traMADoL HCL 50 MG TABLET PO ×2 (03:08→12:37)
[2025-01-01 05:56] LABS: MANUAL DIFF FLAG NO
[2025-01-01 05:57] LABS: Basophils Percent Auto 0.2 % (0-2); Eosinophils Percent Auto 0.1 % (0-4); Hematocrit 39.2 % (37.0-47.0); Hemoglobin 13.5 g/dl (12.0-16.0); Imm Gran Abs Auto 0.08 X10*3/uL (0.00-0.03); Imm Gran Pct Auto 0.8 % (0.0-0.4); Lymphocytes Absolute Auto 1.3 X10*3/uL (1.2-4.9); Lymphocytes Percent Auto 12.5 % (20-40); Mean Corpuscular HGB Conc 34.4 g/dl (31.0-35.0); Mean Corpuscular Volume 87.1 fL (80.0-98.0); Mean Platelet Volume 10.9 fL (9.4-12.3); Monocytes Absolute Auto 0.1 X10*3/uL (0.1-1.2); Monocytes Percent Auto 0.7 % (2-11); Neutrophils Absolute Auto 8.6 x10*3/uL (2.0-8.3); Neutrophils Percent Auto 85.7 % (45-73); Platelet Count 220 X10*3/uL (160-400); Red Cell Distribution Width 13.3 % (11.0-16.0)
[2025-01-01] MEDS: Omeprazole 20 MG CAPSULE.DR PO (06:10)
[2025-01-01 06:12] LABS: Alanine Aminotransferase 33 U/L (0-31); Albumin Level 4.3 g/dL (3.5-5.0); Alkaline Phosphatase 91 U/L (39-117); Anion Gap 14 (12-20); Aspartate Amino Transferase 26 U/L (5-31); Bilirubin Total 0.4 mg/dL (0.0-1.0); Blood Urea Nitrogen 20 mg/dL (9-16); Calcium 10.1 mg/dL (8.4-10.2); Carbon Dioxide 21 mmol/L (22-29); Chloride 105 mmol/L (96-108); Cholesterol 234 mg/dL (<200); Creatinine Clr Calc Pharmacy 47.7; Estimated Glomerular Filt Rate 53; Glucose Random 211 mg/dL (60-115); HDL Cholesterol 47 mg/dL (>40); LDL Cholesterol Calculated 171 mg/dL (<100); Potassium 4.3 mmol/L (3.3-5.1); Sodium 136 mmol/L (135-145); Total Protein 7.6 g/dL (6.5-8.0); Triglycerides 82 mg/dL (<150)
[2025-01-01 06:52] LABS: Estimated Average Glucose 128 mg/dL; Hemoglobin A1C 137.2588 umol/L; Hemoglobin A1c % 6.1 % (<6.0); Total Hemoglobin (HGBA1C) 3156.8637 umol/L
[2025-01-01] MEDS: Insulin Lispro 100 UNIT/ML 3 ML VIAL SUBCUT ×4 (07:38→20:37)
[2025-01-01] MEDS: 0.9 % Sodium Chloride Flush 3 ML SYRINGE IVFLUSH ×3 (07:40→20:36)
--- NOTE | 2025-01-01 07:47 | PC.NURSE ---
this nurse took over patient care from ira at 645 am, patient a&ox3, ambulating in room with steady gait, neuro intact- equal strength of all limbs, smile symmetrical, conveyor monitor intact nsr on monitor, rr equal/non labored, lungs clear, vitals stable, pt medicated per order, call bhandari within reach, pt awaiting inpt bed, plan of care ongoing.
[2025-01-01] MEDS: Nicotine 14 MG PATCH.TD24 TRANSDERMA (08:23)
[2025-01-01] MEDS: NaPROXEN 500 MG TABLET PO (08:24)
[2025-01-01 11:13] LABS: Glucose, Whole Blood 335 mg/dL (60-115)
--- NOTE | 2025-01-01 12:29 | PHA.MEDREC ---
Addendum entered by Abi Robles RPh 01/01/25 16:57: Reviewed by [facility] Original Note: Pharmacy Consult ? Medication Reconciliation Pharmacy has completed the medication reconciliation. Spoke to pt to confirm meds. Additionally, called [facility] [address] [facility] in [place] to confirm meds. Pt reports no longer being on Abilify, loperamide, meolixam, virabegron, or trazodone.
--- NOTE | 2025-01-01 12:30 | HO.PM.IMPN ---
Subjective Subjective Date of Service: 01/01/25 Interval History: dizziness and visual blurring improved very anxious Review of Systems Review of Systems: Yes all other systems are reviewed and are negative Physical Exam Vital Signs: Vital Signs: Last Vital Signs Temp 98.7 F 01/01/25 10:58 Pulse 75 01/01/25 10:58 Resp 14 01/01/25 10:58 BP 174/79 H 01/01/25 10:58 Pulse Ox 96 01/01/25 10:58 O2 Del Method Room Air 01/01/25 10:58 BMI result Body Mass Index 30.2 Gen: in no acute distress HEENT: sclera anicteric, moist mucus membranes Neck: supple Lungs: clear to auscultation bilaterally Heart: regular rate and rhythm, no murmurs Abd: soft, non-tender, non-distended Ext: no edema Skin: warm/well-perfused Neuro: alert and oriented x3, no focal findings Psych: anxious Objective Data Active Medications Acetaminophen (Acetaminophen 325 Mg Tablet) 650 mg PO Q6H PRN PRN Reason: Pain, Mild 1-3,fever,headache Last Admin: 12/31/24 22:18 Dose: 650 mg Documented By: MYRNA Albuterol/Ipratropium (Albuterol/Iprat 2.5/0.5mg 3 Ml Ampul.Neb) 3 ml INHALE Q4H PRN PRN Reason: Shortness of Breath/Wheezing Calcium Carbonate (Calcium Carbonate 750 Mg Tab.Chew) 750 mg PO Q4H PRN PRN Reason: Heartburn Dextrose (Dextrose 50 % 25 Gm/50 Ml Syringe) 25 gm IVPUSH Q15M PRN; Protocol PRN Reason: per Hypoglycemia Standing Ord. Enoxaparin Sodium (Enoxaparin Sodium 40 Mg/0.4 Ml Syringe) 40 mg SUBCUT Q24H CHINEDU Last Admin: 12/31/24 20:58 Dose: 40 mg Documented By: MYRNA Glucose (Glucose Gel 15 Gm Gel..Gram.) 15 gm PO Q15M PRN; Protocol PRN Reason: per Hypoglycemia Standing Ord. Insulin Human Lispro (Insulin Lispro 100 Unit/Ml 3 Ml Vial) 0 unit SUBCUT QIDACHS [facility]; Protocol Last Admin: 01/01/25 07:38 Dose: 4 unit Documented By: FRANCESCA Lorazepam (Lorazepam 0.5 Mg Tablet) 0.5 mg PO Q8H PRN PRN Reason: Anxiety Last Admin: 12/31/24 21:04 Dose: 0.5 mg Documented By: MYRNA Magnesium Hydroxide (Milk Of Magnesia 30 Ml Oral.Susp) 30 ml PO DAILY PRN PRN Reason: Constipation Melatonin (Melatonin 3 Mg Tablet) 6 mg PO BEDTIME PRN PRN Reason: Insomnia Naproxen (Naproxen 500 Mg Tablet) 500 mg PO BID [facility] Last Admin: 01/01/25 08:24 Dose: 500 mg Documented By: FRANCESCA Nicotine (Nicotine 14 Mg Patch.Td24) 14 mg TRANSDERMA DAILY [facility] Last Admin: 01/01/25 08:23 Dose: 14 mg Documented By: FRANCESCA Nicotine Polacrilex (Nicotine Polacrilex 2 Mg Gum) 2 mg BUCCAL Q2H PRN PRN Reason: Nicotine Cravings Omeprazole (Omeprazole 20 Mg Capsule.Dr) 20 mg PO DAILY@0630 [facility] Last Admin: 01/01/25 06:10 Dose: 20 mg Documented By: MYRNA Ondansetron HCl (Ondansetron Hcl 4 Mg/2 Ml Vial) 4 mg IVPUSH Q8H PRN PRN Reason: Nausea and Vomiting Senna (Sennosides 8.6 Mg Tablet) 17.2 mg PO BEDTIME [facility] Last Admin: 12/31/24 20:59 Dose: Not Given Documented By: MYRNA Non-Admin Reason: Patient Refused Sodium Chloride (0.9 % Sodium Chloride Flush 3 Ml Syringe) 3 ml IVFLUSH QSHIFT [facility] Last Admin: 01/01/25 07:40 Dose: 3 ml Documented By: FRANCESCA Tramadol HCl (Tramadol Hcl 50 Mg Tablet) 50 mg PO Q6H PRN PRN Reason: Pain, Severe (Pain Scale 7-10) Last Admin: 01/01/25 03:08 Dose: 50 mg Documented By: MYRNA Labs 01/01/25 05:45 01/01/25 05:45 Labs: Laboratory Results - last 24 hr 12/31/24 12/31/24 12/31/24 11:33 14:00 22:16 MCV MCH MCHC RDW Plt Count MPV Immature Gran % (Auto) Neut % (Auto) Lymph % (Auto) [place] % (Auto) Eos % (Auto) Baso % (Auto) Lymph # (Auto) [place] # (Auto) Eos # (Auto) Baso # (Auto) Abs Immat Gran (auto) Absolute Neuts (auto) Absolute Nucleated RBC Nucleated RBC % (auto) ESR 13 Anion Gap Estim Creat Clear Calc Estimated GFR POC Glucose 171 H Random Glucose Estimat Average Glucose 128 Hemoglobin A1c % 6.1 H Calcium Magnesium 1.7 Total Bilirubin AST ALT Alkaline Phosphatase Total Protein Albumin Triglycerides Cholesterol LDL Cholesterol, Calc HDL Cholesterol TSH 0.67 01/01/25 01/01/25 05:45 11:09 MCV 87.1 MCH 30.0 MCHC 34.4 RDW 13.3 Plt Count 220 MPV 10.9 Immature Gran % (Auto) 0.8 H Neut % (Auto) 85.7 H Lymph % (Auto) 12.5 L [place] % (Auto) 0.7 L Eos % (Auto) 0.1 Baso % (Auto) 0.2 Lymph # (Auto) 1.3 [place] # (Auto) 0.1 Eos # (Auto) 0.0 Baso # (Auto) 0.0 Abs Immat Gran (auto) 0.08 H Absolute Neuts (auto) 8.6 H Absolute Nucleated RBC 0.000 Nucleated RBC % (auto) 0.0 ESR Anion Gap 14 Estim Creat Clear Calc 47.7 Estimated GFR 53 POC Glucose 335 H Random Glucose 211 H Estimat Average Glucose Hemoglobin A1c % Calcium 10.1 Magnesium Total Bilirubin 0.4 AST 26 ALT 33 H Alkaline Phosphatase 91 Total Protein 7.6 Albumin 4.3 Triglycerides 82 Cholesterol 234 H LDL Cholesterol, Calc 171 H HDL Cholesterol 47 TSH Assessment and Plan (1) Demyelinating changes in brain: Status: Acute Assessment and Plan: d2 for 69yo F with anxiety, asthma, IBS, GERD, tobacco abuse, HTN, DM2, and HTN presenting with dizziness and vision changes, found to have abnormal T2 hyperintense lesions in brain concerning for demyelination T2 hyperintense brain lesions - demyelination suspected but possibly hypertensive encephalopathy; Neurology consult pending; may need LP; was given 1g Solu-medrol empirically yesterday in ED; hold further steroids - PT/OT pending HTN urgency - resume lisinopril + HCTZ dysphagia - [employer] consultation pending atypical chest pain - analgesics [APAP + tramadol], likely musculoskeletal 16mm L thyroid nodule - outpt US anxiety - escitalopram, clonazepam, hydroxyzine - Psychiatry consult GERD - PPI HLD - statin asthma - prn nebs DM2 - A1c only 6.1, correction-dose lispro VTE ppx - enoxaparin dispo - TBD In my clinical judgment, the patient requires continued inpatient hospitalization for the following reasons: neurologic consultation Total time managing care of this patient today: 35 minutes. Quality Stroke Does the patient have a stroke diagnosis?: No Reason for No Anti-thrombotic by Day Two: N/A - Med Ordered VTE Prior VTE?: No VTE Risk Level:: Medical - moderate - high VTE Device Contraindication: N/A - Device Ordered VTE Drug Contraindication: N/A - Med Ordered
[2025-01-01] MEDS: lisinopriL 20 MG TABLET PO (13:02)
[2025-01-01] MEDS: hydroCHLOROthiazide 12.5 MG TABLET PO (13:02)
--- NOTE | 2025-01-01 13:58 | MHC.CM.PN ---
Pt lives with her dtr, she does not have home health services or DME. She does not have a PCP, she used to have Esau Cuellar, and is in the process of going back to him. HCP was completed today, naming her dtr, Cata. Family to transport pt. home at [place], DCP: home, self care. CM to follow for DC needs.
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
[2025-01-01 16:31] LABS: Glucose, Whole Blood 259 mg/dL (60-115)
[2025-01-01] MEDS: Escitalopram Oxalate 10 MG TABLET PO (16:34)
[2025-01-01 20:31] LABS: Glucose, Whole Blood 262 mg/dL (60-115)
[2025-01-01] MEDS: TiZANidine HCL 4 MG TABLET 2 MG PO (20:35)
[2025-01-01] MEDS: Enoxaparin Sodium 40 MG/0.4 ML SYRINGE SUBCUT (20:36)
[2025-01-01] MEDS: clonazePAM 0.5 MG TABLET PO (20:36)
[2025-01-01] MEDS: Sennosides 8.6 MG TABLET 17.2 MG PO (20:36)
[2025-01-01] MEDS: hydrOXYzine HCL 25 MG TABLET PO (20:36)
[2025-01-02 03:23] VITALS: BP 117/58; PULSE 70; RESP 18; TEMP 36.9; O2SAT 96
[2025-01-02] MEDS: Omeprazole 20 MG CAPSULE.DR PO (05:56)
[2025-01-02 06:00] VITALS: BMI 64.8
[2025-01-02 06:34] LABS: INTERNATIONAL NORM RATIO 0.9 (0.9-1.1); Prothrombin Time 10.7 SEC (10.9-12.4)
[2025-01-02 06:57] LABS: Hematocrit 37.8 % (37.0-47.0); Hemoglobin 12.3 g/dl (12.0-16.0); Mean Corpuscular HGB Conc 32.5 g/dl (31.0-35.0); Mean Corpuscular Hemoglobin 29.6 pg (27.0-33.0); Mean Corpuscular Volume 90.9 fL (80.0-98.0); Mean Platelet Volume 11.5 fL (9.4-12.3); Platelet Count 222 X10*3/uL (160-400); Red Blood Count 4.16 X10*6/uL (4.20-5.50); Red Cell Distribution Width 13.4 % (11.0-16.0); White Blood Count 18.5 X10*3/uL (4.8-10.8)
[2025-01-02 07:04] LABS: HIV AB/AG Nonreactive (Nonreactive); HIV Num 1 0.06 S/CO (0.00-0.99)
[2025-01-02 07:19] VITALS: BP 141/66; PULSE 56; RESP 20; TEMP 36.9; O2SAT 96
[2025-01-02 07:55] LABS: Glucose, Whole Blood 166 mg/dL (60-115)
[2025-01-02] MEDS: Insulin Lispro 100 UNIT/ML 3 ML VIAL SUBCUT ×2 (08:10→12:04)
[2025-01-02] MEDS: Atorvastatin Calcium 40 MG TABLET PO (08:11)
[2025-01-02] MEDS: Cholecalciferol (Vitamin D3) 25 MCG TABLET PO (08:11)
[2025-01-02] MEDS: hydroCHLOROthiazide 12.5 MG TABLET PO (08:11)
[2025-01-02] MEDS: Escitalopram Oxalate 20 MG TABLET PO (08:11)
[2025-01-02] MEDS: Nicotine 14 MG PATCH.TD24 TRANSDERMA (08:11)
[2025-01-02] MEDS: NaPROXEN 500 MG TABLET PO (08:11)
[2025-01-02] MEDS: lisinopriL 20 MG TABLET PO (08:11)
[2025-01-02] MEDS: 0.9 % Sodium Chloride Flush 3 ML SYRINGE IVFLUSH (08:17)
[2025-01-02 09:14] LABS: Anion Gap 13 (12-20); Blood Urea Nitrogen 33 mg/dL (9-16); Calcium 10.2 mg/dL (8.4-10.2); Carbon Dioxide 25 mmol/L (22-29); Chloride 101 mmol/L (96-108); Creatinine Clr Calc Pharmacy 54.5; Estimated Glomerular Filt Rate 36; Glucose Random 268 mg/dL (60-115); Sodium 135 mmol/L (135-145)
--- NOTE | 2025-01-02 10:31 | MHC.CM.PN ---
Per PT, No PT is indicated; CM will continue to follow.
[2025-01-02 11:07] VITALS: BP 134/61; PULSE 88; RESP 16; TEMP 36.6; O2SAT 96
[2025-01-02 11:14] LABS: Glucose, Whole Blood 159 mg/dL (60-115)
--- NOTE | 2025-01-02 11:55 | MHC.SL.SWA ---
Speech Pathologist Impression: Adequate oropharyngeal swallow coordination observed during clinical bedside evaluation; however, d/t transient nature of pt dysphagia, pt considered to be at risk for aspiration intermittently Risk of Aspiration Due to: Recent onset of dysphagia Inconsistent dysphagia Question of pharyngeal nodule Loose fitting dentures Dysphasia Diet Status: Pt exhibited adequate oropharyngeal coordination when eating/drinking during clinical bedside swallow. Mastication observed to be efficient, with rotary motion of jaw in chewing/breaking down solids to form bolus. Bolus formation/manipulation and anterior to posterior transit timely. Trigger of pharyngeal swallow immediate, with no observable tongue pumping or delay. Completion of swallow WNL, though pt intermittently observed to grimace upon swallow. Pt denied pain. TRAFFIC CLERK provided education on physiological function of swallow, concomitant airway protection, overt s/s of aspiration to be aware of, recc safety strategies/diet modifications, and discussed anticipated follow up with TRAFFIC CLERK s/p visualization of pharynx d/t suspected nodule. Pt and daughters in agreement, vebalize understanding. Recc regular diet with thin liquids, TRAFFIC CLERK tx to address dysphagia management in presence of neurological changes. Liquid Consistency and Strategies for Safe Swallow: Liquid Intake Recommendation: Thin Liquid Intake Strategies: Solid Food Consistency: Dietary Recommendations: Regular Additional Modifications to Solid Foods: Oral Medication Intake: Whole with Liquid Please contact the pharmacy regarding appropriate crushable or liquid drug formulations that are available whenever modified delivery is recommended. Compensatory Strategies and Precautions to be Taken for Safe Swallow: Supervision While Eating and Drinking for Safe Swallow: None Needed Foods to Avoid: Swallowing Recommended Treatments: Recommendation for Speech: Further Testing Needed Comment: ENT consultation indicated d/t question of pharyngeal pathology Frequency/Duration: Date Range for Service Req: Timeline to reassess: Senior Power Scheduler Clinican/Clinical Fellow: No Supervisory Statement: I have reviewed and agree with the student/clinical fellow's documentation: N/A Speech Language Pathologist: Gabriella Cloud M.S., CCC-TRAFFIC CLERK
[2025-01-02 13:09] LABS: CRP High Sensitivity 0.8 mg/L
[2025-01-02] MEDS: Loperamide HCl 2 MG CAPSULE PO (13:59)
[2025-01-02] MEDS: gadobutroL 7.5 ML VIAL IVPUSH (15:21)
[2025-01-02 16:00] VITALS: BP 117/59; PULSE 66; RESP 18; TEMP 37.1; O2SAT 97
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
--- NOTE | 2025-01-02 16:05 | MHC.CM.PN ---
Patient has been medically cleared for dc to home today, self care.
[2025-01-02 16:08] LABS: Glucose, Whole Blood 130 mg/dL (60-115)
== END 2025-01-02 16:25 | disposition home or self-care (01) | DRG 92 ==
LOC: HO.ED 20:23 → HO.EDOVER 20:26 → HO.IMC 01-01 08:04
PROVIDERS: Family Medicine; Nurse Practitioner Family; Admitting Provider Student in an Organized Health Care Education/Training Program; Emergency Provider Emergency Medicine; Visit Provider Hospitalist
DX: I67.1 Cerebral aneurysm, nonruptured (principal); I67.4 Hypertensive encephalopathy; J43.9 Emphysema, unspecified; I10 Essential (primary) hypertension; I16.0 Hypertensive urgency; F19.21 Other psychoactive substance dependence, in remission; E11.9 Type 2 diabetes mellitus without complications; E04.1 Nontoxic single thyroid nodule; E78.5 Hyperlipidemia, unspecified; F41.9 Anxiety disorder, unspecified; G47.00 Insomnia, unspecified; J45.909 Unspecified asthma, uncomplicated; Z79.899 Other long term (current) drug therapy
CPT/HCPCS: 36415; 70496; 70498; 70551; 70552; 71046; 80048; 80053; 80061; 80076; 82947; 83036; 83735; 84443; 84484; 85025; 85027; 85610; 85652; 86141; 87389; 92610; 93005; 97161; 97165; 99285; A9585; J1650; J1885; J2919; Q9967

== ENCOUNTER → 2024-12-31 11:06 | Outpatient (BNV) | payer MEDICARE, SELFPAY | PROVIDERS: Admitting Provider Student in an Organized Health Care Education/Training Program; Emergency Provider Emergency Medicine; Visit Provider Internal Medicine Cardiovascular Disease | DX: R07.9 Chest pain, unspecified (principal) | CPT/HCPCS: 93010 ==

== ENCOUNTER → 2024-12-31 11:21 | Outpatient (BNV) | payer MEDICARE, SELFPAY | PROVIDERS: Visit Provider Radiology Diagnostic Radiology | DX: E04.1 Nontoxic single thyroid nodule (principal); I72.9 Aneurysm of unspecified site; R90.82 White matter disease, unspecified; R07.9 Chest pain, unspecified | CPT/HCPCS: 70496; 70498; 70551; 71046 ==

== ENCOUNTER 2024-12-31 19:42 | Outpatient (BNV) | payer MEDICARE, SELFPAY | END 2025-01-02 15:00 | PROVIDERS: Admitting Provider Student in an Organized Health Care Education/Training Program; Emergency Provider Emergency Medicine; Visit Provider Radiology Diagnostic Radiology | DX: R42 Dizziness and giddiness (principal) | CPT/HCPCS: 70552 ==

== ENCOUNTER → 2024-12-31 19:42 | Outpatient (BNV) | payer MEDICARE, SELFPAY | PROVIDERS: Admitting Provider Student in an Organized Health Care Education/Training Program; Emergency Provider Emergency Medicine; Visit Provider Nurse Practitioner Family | DX: R42 Dizziness and giddiness (principal) | CPT/HCPCS: 99223; 99232; 99239 ==

== ENCOUNTER → 2024-12-31 19:42 | Outpatient (BNV) | payer MEDICARE, SELFPAY | PROVIDERS: Admitting Provider Student in an Organized Health Care Education/Training Program; Emergency Provider Emergency Medicine; Visit Provider Psychiatry & Neurology Neurology | DX: I67.1 Cerebral aneurysm, nonruptured (principal); R90.89 Other abnormal findings on diagnostic imaging of central nervous system | CPT/HCPCS: 99223 ==

== ENCOUNTER → 2024-12-31 19:42 | Outpatient (BNV) | payer MEDICARE, SELFPAY | PROVIDERS: Admitting Provider Student in an Organized Health Care Education/Training Program; Emergency Provider Emergency Medicine; Visit Provider Psychiatry & Neurology Psychiatry | DX: F41.9 Anxiety disorder, unspecified (principal) | CPT/HCPCS: 99232 ==

== ENCOUNTER 2025-01-13 09:45 | Outpatient (AMB) | payer MEDICARE, MEDICAID, SELFPAY ==
[2025-01-13 09:56] VITALS: BP 164/86; PULSE 88; O2SAT 98; BMI 29.0
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
--- OUTSIDE RECORDS SUMMARY | 2025-01-13 10:09 | XMS_ITS | Patient Health Record ---
Author Organization [facility] Address [address] [facility] [place] [address] Care Team Providers Care Major Donor Coordinator Name Role Phone Laura Lott Unavailable [phone] Reason For Referral No Information Plan Of Treatment Next Appt Details Provider Name:Laura Lott, 0 10/12/2025 02:30:00 PM, [address] [facility], [place], [address],
== END 2025-01-13 11:59 | disposition home or self-care (01) ==
PROVIDERS: PCP Physician Assistant; Visit Provider Nurse Practitioner Family
DX: I67.1 Cerebral aneurysm, nonruptured (principal)

== ENCOUNTER → 2025-01-13 09:45 | Outpatient (BNVA) | payer MEDICARE, SELFPAY | PROVIDERS: PCP Physician Assistant; Visit Provider Nurse Practitioner Family | DX: I67.1 Cerebral aneurysm, nonruptured (principal); K21.9 Gastro-esophageal reflux disease without esophagitis; K58.0 Irritable bowel syndrome with diarrhea; J45.909 Unspecified asthma, uncomplicated; F41.9 Anxiety disorder, unspecified; G89.29 Other chronic pain; E11.9 Type 2 diabetes mellitus without complications; G47.00 Insomnia, unspecified; E78.5 Hyperlipidemia, unspecified; I10 Essential (primary) hypertension; F17.210 Nicotine dependence, cigarettes, uncomplicated; Z79.4 Long term (current) use of insulin; Z79.899 Other long term (current) drug therapy; Z98.890 Other specified postprocedural states | CPT/HCPCS: 96127; 99212 ==

== ENCOUNTER 2025-01-16 12:41 | Outpatient (AMB) | payer MEDICARE, SELFPAY ==
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
[2025-01-16 12:52] VITALS: BP 138/74; PULSE 74; TEMP 36.2; O2SAT 98; BMI 28.8
--- OUTSIDE RECORDS SUMMARY | 2025-01-16 13:38 | XMS_ITS | Patient Health Record ---
Author Organization [facility] Address [address] [facility] [address] [place] [address] Care Team Providers Care Mud Analysis Supervisor Name Role Phone Laura Lott Unavailable [phone] Reason For Referral No Information Plan Of Treatment Next Appt Details Provider Name:Laura Lott, 0 10/12/2025 02:30:00 PM, [address] [facility], [place], [address],
== END 2025-01-16 13:43 | disposition home or self-care (01) ==
LOC: HO.HMCH 12:42
PROVIDERS: PCP Physician Assistant; Visit Provider Physician Assistant
DX: Z00.00 Encounter for general adult medical examination without abnormal findings (principal); M54.2 Cervicalgia; H90.3 Sensorineural hearing loss, bilateral; Z12.31 Encounter for screening mammogram for malignant neoplasm of breast; Z78.0 Asymptomatic menopausal state; F17.200 Nicotine dependence, unspecified, uncomplicated; R90.82 White matter disease, unspecified

== ENCOUNTER → 2025-01-16 12:41 | Outpatient (BNVA) | payer MEDICARE, MEDICAID, SELFPAY | PROVIDERS: PCP Physician Assistant; Visit Provider Physician Assistant | DX: Z00.00 Encounter for general adult medical examination without abnormal findings (principal); M54.2 Cervicalgia; H90.3 Sensorineural hearing loss, bilateral; R90.82 White matter disease, unspecified; Z78.0 Asymptomatic menopausal state; F17.200 Nicotine dependence, unspecified, uncomplicated; Z71.6 Tobacco abuse counseling | CPT/HCPCS: 99212 ==

== ENCOUNTER 2025-02-16 14:24 | Outpatient (REF) | payer MEDICARE, MEDICAID, SELFPAY ==
--- OUTSIDE RECORDS SUMMARY | 2025-02-16 14:27 | XMS_ITS | Patient Health Record ---
Author Organization [facility] Address [address] [facility] [address] [place] [address] Care Team Providers Care Public Events Facilities Rental Manager Name Role Phone Laura Lott Unavailable [phone] Reason For Referral No Information Plan Of Treatment Next Appt Details Provider Name:Laura Lott, 0 10/12/2025 02:30:00 PM, [address] [facility], [place], [address],
--- OUTSIDE RECORDS SUMMARY | 2025-02-16 14:27 | XMS_ITS | Patient Health Record ---
Author Organization [facility] Address [address] [place] [address] Care Team Providers Care Technical Staff Assistant Name Role Phone Lilian (RETIRED) Winston ARCE Primary Care Provide r Unavailable Hair Ghosh Unavailable [phone] Reason For Referral No Information Plan Of Treatment No Information Insurance Providers Payer Name Payer Address Payer Phone Subscriber Number Group Number Insured Name Patient Relationship to Insured Coverage Start Date Coverage End Date MEDICARE OF [place] [address] [place] [id number] ENRRIQUE RICHARDSON Self - patient is the insured MEDICAID OF [facility] [address] [place] [address] [id number] ENRRIQUE RICHARDSON Self - patient is the insured
== END 2025-02-16 14:25 | disposition home or self-care (01) ==
LOC: HO.SH 14:24
PROVIDERS: Visit Provider Physician Assistant
DX: Z01.118 Encounter for examination of ears and hearing with other abnormal findings (principal); H90.A22 Sensorineural hearing loss, unilateral, left ear, with restricted hearing on the contralateral side; H90.A31 Mixed conductive and sensorineural hearing loss, unilateral, right ear with restricted hearing on the contralateral side
CPT/HCPCS: 92557; 92567

== ENCOUNTER 2025-02-22 14:00 | Outpatient (RCR) | payer MEDICARE, MEDICAID, SELFPAY ==
--- NOTE | 2025-01-27 16:40 | MHC.PT.EP ---
[facility] [place] Office [place] Office [place] Office [address] Ana Barone [address] [phone] F: [phone] F: [phone] F: [phone] F: [phone] Physical Therapy Plan of Care Date of Evaluation: 01/27/25 Date of Surgery: Diagnosis: Cervical pain. Assessment: Pt is a 69 y/o female with PMHx of Aneurysm of middle cerebral artery, HTN, Asthma, Arthritis, Back pain, total knee arthroplasty who is referred to PT for eval and treat of cervicalgia which is resulting in decreased tolerance for carrying objects of weight, reading, watching her tablet/ phone, performing HH chores, turning her head to the L, as well as disturbed sleep secondary to decreased cervical and scapular posture, sedentary lifestyle, poor phone/ tablet posture, general UE decondition, decreased cervical ROM with pain, fibromyalgia, and pain with movement. Pt is deemed an appropriate candidate to receive skilled PT services to address their physical impairments in order to improve their functional ability. Frequency and Duration: The patient will be seen 2 x/ wk x 3 wks. Short Term Goals: Initiate home program. improve baseline pain to < 6/10; initial: 8/10. District Wildlife Manager Goals: I with home program. Pt will improve NDI outcome by at least 9 points. Pt will achieve symmetrical cervical rotation; initial: R side limited and painful. Pt woll be able to place objects on a high shelf with managed sx. Treatment Plan: Modalities to reduce pain, spasms and effusion. Manual therapy to restore motion and function. Therapeutic exercise to improve strength and flexibility. Neuromuscular re-education for posture and balance. Therapeutic activities to return to functional activities of daily living. Electronically signed by: Dilip Medina PT. Please sign and return to therapist. Thank you for your referral.
--- NOTE | 2025-02-22 15:31 | MHC.PT.DC ---
[facility] [place] Office [place] Office [place] Office [address] Ana Barone [address] [phone] F: [phone] F: [phone] F: [phone] F: [phone] Physical Therapy Discharge Report Diagnosis: Cervical pain. Date of Surgery: Date of Evaluation: 01/27/25 Date of Discharge: 02/22/25 Treatments to Date: 6 Cancellations to Date: No Shows to Date: Discharge Status: Achieved Goals Improved Function Independent with HEP Discharge Summary: Jacki has been an active participant in her therapy and is in agreement with DC today as she is I with her home program, posture ed for home, she is improved of her condition and has met her therapeutic goals. She has also obtained a TENS unit for home use which has been a benefit. NDI outcome measure improved from 36/50 to 22/50 which is a significant improvement. Electronically signed by: Dilip Medina PT. Please sign and return to therapist. Thank you for your referral.
== END 2025-02-22 15:32 | disposition home or self-care (01) ==
LOC: HO.PT 14:00
PROVIDERS: PCP Physician Assistant; Visit Provider Physician Assistant
DX: M54.2 Cervicalgia (principal)
CPT/HCPCS: 97014; 97110; 97140; 97161; 97535

== ENCOUNTER 2025-03-09 07:54 | Outpatient (REF) | payer MEDICARE, MEDICAID, SELFPAY ==
--- NOTE | ~2025-03-09 | XR_ITS ---
EXAMINATION: XR PELVIS CLINICAL INFORMATION: M25.559 - Pain in unspecified hip COMPARISON: None available. TECHNIQUE: AP view of the pelvis. FINDINGS: There is mild axial joint space narrowing of the right greater than left hip joint. No osteophytes are identified. Pubic symphysis joint is sclerotic and mildly irregular. SI joints demonstrate minimal osteophyte formation. No other abnormalities are evident. XR/XR pelvis 1-2V IMPRESSION: Mild degenerative changes of the hip, SI, and pubic symphysis joints Electronically signed by: Ezequiel Barron MD 03/09/2025 11:24 AM EDT
--- NOTE | ~2025-03-09 | XR_ITS ---
EXAMINATION: XR KNEE, LEFT CLINICAL INFORMATION: M25.562 - Pain in left knee COMPARISON: April 04, 2019 TECHNIQUE: Three views of the left knee. FINDINGS: Again seen are changes related to total knee arthroplasty. There is no sign of hardware loosening. The prior, a wire in the have been placed along the medial aspect of the tibia terminating adjacent to the medial metaphysis. There is no joint effusion. XR/XR knee LT 3V IMPRESSION: Stable total knee arthroplasty. Neurostimulator implant. Electronically signed by: Ezequiel Barron MD 03/09/2025 10:25 AM EDT
--- OUTSIDE RECORDS SUMMARY | 2025-03-09 07:57 | XMS_ITS | Patient Health Record ---
Author Organization [facility] Address [address] [place] [address] Care Team Providers Care Regulatory Law Specialist Name Role Phone Lilian (RETIRED) Winston ARCE Primary Care Provide r Unavailable Hair Ghosh Unavailable [phone] Reason For Referral No Information Plan Of Treatment No Information Insurance Providers Payer Name Payer Address Payer Phone Subscriber Number Group Number Insured Name Patient Relationship to Insured Coverage Start Date Coverage End Date MEDICARE OF [place] [address] [place] [id number] ENRRIQUE RICHARDSON Self - patient is the insured MEDICAID OF [facility] [address] [place] [address] [id number] ENRRIQUE RICHARDSON Self - patient is the insured
--- OUTSIDE RECORDS SUMMARY | 2025-03-09 07:57 | XMS_ITS | Patient Health Record ---
Author Organization [facility] Address [address] [facility] [address] [place] [address] Care Team Providers Care Contract Sheltered Workshop Supervisor Name Role Phone Laura Lott Unavailable [phone] Reason For Referral No Information Plan Of Treatment Next Appt Details Provider Name:Laura Lott, 0 10/12/2025 02:30:00 PM, [address] [facility], [place], [address],
== END 2025-03-09 07:55 | disposition home or self-care (01) ==
LOC: HO.HOSX 07:54
PROVIDERS: Visit Provider Orthopaedic Surgery
DX: M25.562 Pain in left knee (principal); G89.29 Other chronic pain; M25.559 Pain in unspecified hip; Z96.652 Presence of left artificial knee joint
CPT/HCPCS: 72170; 73562; 99212

== ENCOUNTER 2025-03-09 09:44 | Outpatient (AMB) | payer MEDICARE, SELFPAY ==
--- NOTE | 2025-03-09 09:57 | MHC.OFFVIS ---
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 Hx of Left TKA 2019. She has been meeting with pain management in regards to her pain. Patient reports pain has been going on for about 6-7 years. Has pain and numbness throughout the knee. With pain management she has had Left Knee Geniculate Nerve stimulator placement in 2019. 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 Hx of Left TKA 2019. She has been meeting with pain management in regards to her pain. Patient reports pain has been going on for about 6-7 years. Has pain and numbness throughout the knee. With pain management she has had Left Knee Geniculate Nerve stimulator placement in 2019.This was not helpful. She denies fever/chills. She denies changes in the appearance of the knee and soft tissue swelling. The most bothersome activity for her is stairs. [facility] Medical History Nicotine dependence, cigarettes, uncomplicated Aneurysm of middle cerebral artery Irritable bowel syndrome with diarrhea Insomnia Hearing loss HTN (hypertension) Dyslipidemia Asthma Chronic 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 Chronic pain of left knee Osteoarthritis of knees, bilateral Arthritis Back pain Vitamin D deficiency Anxiety Depression Surgical History History of surgery on left wrist History of surgery on right wrist History of meniscectomy of left knee History of total left knee replacement S/P placement of nerve stimulator History of surgery on wrist History of ear surgery History of hysterectomy History of colonoscopy H/O tubal ligation Family History Father Automobile accident Mother Hypertension Hyperlipidemia Diabetes Brother Diabetes Hyperlipidemia Sister Diabetes Hyperlipidemia Social History Household Members: Family and Children Housing: Apartment Do you presently have visiting nurse or other home services: No Alcohol intake: current Alcohol intake frequency: a few times a month Patient Tobacco Use Status: Current everyday Tobacco user Tobacco use type: Cigarette Cigarette Packs Per Day: 1 Cigarettes Per Day: 20 Years Smoked: 49 e-Cigarette/Vaping Use: Currently Using Second Hand Smoke Exposure: Yes Advance Directives Date on File: 09/18/17 service: No Current occupational status: disabled Cognitive needs: Yes (Pt would like a cane due to her pain in her leg) Hearing needs: Yes (right ear hearing loss) Vision needs: Yes Physical Exam Vital Signs: BMI result Body Mass Index 28.7 Extrem Other: Left knee exam: 0-130 deg motion incision in c/d/i there is no effusion stable to v/v stress patella tracking is cenetered mild quad atrophy compared to right no focal ttp Results Reviewed Results Reviewed: left total knee arthroplasty in expected post operative position with no hardware complications or evidence of loosening Assessment & Plan Assessment & Plan (1) Chronic 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: Code(s): M25.562 - Pain in left knee; G89.29 - Other chronic pain; Z96.652 - Presence of left artificial knee joint Category: Medical Plan: There is no evidence of complication. Her exam is benign and her complaints are vague. She does not want to do PT. I hasd a long conversation and I think she is deconditioned and would benefit from stair avoidance and conditioning. She doesn't want to tdo that however and so PRN NSAIDs as tolerated and can see me as needed. There in no surgical intervention warranted. Orders: Orders XR knee LT 3V 03/09/25 M25.562 - Pain in left knee XR pelvis 1-2V 03/09/25 M25.559 - Pain in unspecified hip Coding Level of Care Code Est Pt Level 3 (72807) Diagnoses Chronic 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 M25.562; G89.29; Z96.652
[2025-03-09 09:58] VITALS: BMI 28.7
== END 2025-03-09 11:16 | disposition home or self-care (01) ==
LOC: HO.HOS 09:45
PROVIDERS: PCP Physician Assistant; Visit Provider Orthopaedic Surgery
DX: M25.562 Pain in left knee (principal); G89.29 Other chronic pain; Z96.652 Presence of left artificial knee joint
CPT/HCPCS: 99213

== ENCOUNTER → 2025-03-09 09:47 | Outpatient (BNV) | payer MEDICARE, MEDICAID, SELFPAY | PROVIDERS: Visit Provider Radiology Diagnostic Radiology | DX: M25.562 Pain in left knee (principal); Z96.652 Presence of left artificial knee joint; Z96.82 Presence of neurostimulator; M25.559 Pain in unspecified hip | CPT/HCPCS: 72170; 73562 ==

== ENCOUNTER 2025-03-14 13:00 | Outpatient (REF) | payer MEDICARE, MEDICAID, SELFPAY ==
--- NOTE | ~2025-03-14 | MM_ITS ---
EXAMINATION: DXA BONE DENSITY AXIAL HISTORY: Z78.0 - Asymptomatic menopausal state TECHNIQUE: Yasmo Dual energy absorptiometry (DEXA) of the lumbar spine, total left hip, and femoral neck was performed. COMPARISON: There are no prior studies for comparison. FINDINGS: The bone mineral density of the lumbar spine is 1.178 g/cm2, corresponding to a T-score of 0.0, and a Z-score of 1.4. This is indicative of normal bone mineral density. The bone mineral density of the left total hip is 0.907 g/cm2, corresponding to a T-score of -0.8, and a Z-score of 0.5. This is indicative of normal bone mineral density. The bone mineral density of the left femoral neck is 0.911 g/cm2, corresponding to a T-score of -0.9, and a Z-score of 0.6. This is indicative of normal bone mineral density. FRACTURE RISK: The FRAX index suggests a risk of major osteoporotic fracture of 4.7%, and of hip fracture 0.7%. MM/XR DEXA axial skeleton IMPRESSION: Based on bone mineral density, and according to World Health Organization (WHO) criteria, the diagnosis is consistent with normal bone mineral density. Statistically, 68% of repeat scans fall within 1 SD (+/- 0.010 g/cm2 for AP spine L1-L4) and 1 SD (+/- 0.012 g/cm2 for femur total) FRAX is a trademark of the [employer] Metabolic Bone Disease, a World Health Organization (WHO) Collaborating Center. Electronically signed by: Hair Garcias MD 03/14/2025 02:04 PM EDT
--- NOTE | ~2025-03-14 | MM_ITS ---
EXAMINATION: MM SCREENING DIGITAL BREAST TOMOSYNTHESIS, BILATERAL CLINICAL INFORMATION: Screening. Asymptomatic. COMPARISON: Mammography: Comparison is made with available priors TECHNIQUE: Digital breast mammography with tomosynthesis is performed in both the craniocaudal and mediolateral oblique views along with computer-aided detection (CAD). FINDINGS: There are scattered areas of fibroglandular density (ACR BI-RADS breast composition Category b). There are no significant masses, abnormal calcifications, or other abnormalities. MM/MM tomosynthesis screening BI IMPRESSION: No mammographic evidence of malignancy. ASSESSMENT: BI-RADS BI-RADS 1 - Negative RECOMMENDATION: Routine annual mammography screening. 1 year F/U This examination should not preclude the clinical evaluation of a suspicious palpable abnormality. This patient's information was entered into a reminder system with a target due date for their next mammogram. Electronically signed by: Marichuy Lee DO 03/24/2025 03:34 PM EDT
--- OUTSIDE RECORDS SUMMARY | 2025-03-14 13:46 | XMS_ITS | Patient Health Record ---
Author Organization [facility] Address [address] [place] [address] Care Team Providers Care Technology Methodology Consultant Name Role Phone Lilian (RETIRED) Winston ARCE Primary Care Provide r Unavailable Hair Ghosh Unavailable [phone] Reason For Referral No Information Plan Of Treatment No Information Insurance Providers Payer Name Payer Address Payer Phone Subscriber Number Group Number Insured Name Patient Relationship to Insured Coverage Start Date Coverage End Date [place] [address] [place] [id number] ENRRIQUE RICHARDSON Self - patient is the insured MEDICAID OF [facility] [address] [place] [address] [id number] ENRRIQUE RICHARDSON Self - patient is the insured
--- OUTSIDE RECORDS SUMMARY | 2025-03-14 13:47 | XMS_ITS | Patient Health Record ---
Author Organization [facility] Address [address] [facility] [address] [place] [address] Care Team Providers Care Dock Associate Name Role Phone Laura Lott Unavailable [phone] Reason For Referral No Information Plan Of Treatment Next Appt Details Provider Name:Laura Lott, 0 10/12/2025 02:30:00 PM, [address] [facility], [address], [place], [address],
== END 2025-03-14 13:01 | disposition home or self-care (01) ==
LOC: HO.MAMMO 13:00
PROVIDERS: PCP Physician Assistant; Visit Provider Physician Assistant
DX: Z12.31 Encounter for screening mammogram for malignant neoplasm of breast (principal); Z13.820 Encounter for screening for osteoporosis; Z78.0 Asymptomatic menopausal state
CPT/HCPCS: 77063; 77067; 77080

== ENCOUNTER → 2025-03-14 14:00 | Outpatient (BNV) | payer MEDICARE, MEDICAID, SELFPAY | PROVIDERS: PCP Physician Assistant; Visit Provider Radiology Diagnostic Radiology | DX: Z12.31 Encounter for screening mammogram for malignant neoplasm of breast (principal) | CPT/HCPCS: 77063; 77067 ==

== ENCOUNTER 2025-04-05 13:16 | Outpatient (REF) | payer MEDICAID, SELFPAY ==
--- NOTE | ~2025-04-05 | CT_ITS ---
CLINICAL HISTORY: F17.210 - Nicotine dependence, cigarettes, uncomplicated CT lung cancer screening (LDCT) Comparison: Chest CT from 12/19/2022 Technique: Axial CT images of the chest using low-dose technique. Referring provider counseled the patient on shared decision-making for LDCT screening. Additional counseling was provided on smoking cessation. Effective radiation dose total: DLP 13.7 mGycm, CTDIvol 1.1 mGy. Findings: Lung: Mild/minimal ground-glass in the right lower lobe including posterior basal segment and superior segment may be infectious/inflammatory such as mild/minimal pneumonitis. No lobar consolidation. No pneumothorax or pleural effusion. No significant change in calcified nodule left lower lobe measuring 6 mm. No new solid pulmonary nodule 4 mm or larger. Mild emphysematous changes are redemonstrated. Coronary artery calcifications: Moderate to severe, with mild cardiomegaly Limited upper abdomen: Cholelithiasis by CT. No definite change of the partially imaged exophytic cystic lesion of the imaged right kidney. Calcified remnants of old granulomatous process noted in the imaged and nonenlarged spleen. Other: Mild vertebral height losses appear old/chronic and accentuated by Schmorl's nodes, including mild height loss of the T10. Degenerative changes include imaged shoulders and imaged spine. Impression: 1. Category 2S: Mild ground-glass in the right lower lobe is new and nonspecific. This is potentially clinically significant such as mild pneumonitis. Attention on follow-up to ensure resolution is advised. 2. Otherwise, Category 2: Benign appearance or behavior, continue annual screening This document has been electronically signed by: Harshad Fontaine MD on 04/06/2025 19:13:12
--- OUTSIDE RECORDS SUMMARY | 2025-04-05 14:10 | XMS_ITS | Patient Health Record ---
Author Organization [facility] Address [address] [facility] [address] [place] [address] Care Team Providers Care Pre K Special Education Teacher Name Role Phone Laura Lott Unavailable [phone] Reason For Referral No Information Plan Of Treatment Next Appt Details Provider Name:Laura Lott, 0 10/12/2025 02:30:00 PM, [address] [facility], [address], [place], [address],
--- OUTSIDE RECORDS SUMMARY | 2025-04-05 14:10 | XMS_ITS | Patient Health Record ---
Author Organization [facility] Address [address] [place] [address] Care Team Providers Care Winch Runner Name Role Phone Lilian (RETIRED) Winston ARCE Primary Care Provide r Unavailable Hair Ghosh Unavailable [phone] Reason For Referral No Information Plan Of Treatment No Information Insurance Providers Payer Name Payer Address Payer Phone Subscriber Number Group Number Insured Name Patient Relationship to Insured Coverage Start Date Coverage End Date [place] [address] [place] [id number] ENRRIQUE RICHARDSON Self - patient is the insured MEDICAID OF [facility] [address] [place] [address] [id number] ENRRIQUE RICHARDSON Self - patient is the insured
== END 2025-04-05 13:17 | disposition home or self-care (01) ==
LOC: HO.CT 13:16
PROVIDERS: PCP Physician Assistant; Visit Provider Physician Assistant Medical
DX: Z12.2 Encounter for screening for malignant neoplasm of respiratory organs (principal); F17.210 Nicotine dependence, cigarettes, uncomplicated
CPT/HCPCS: 71271

== ENCOUNTER → 2025-04-05 13:18 | Outpatient (BNV) | payer MEDICAID, SELFPAY | PROVIDERS: PCP Physician Assistant; Visit Provider Radiology Neuroradiology | DX: F17.210 Nicotine dependence, cigarettes, uncomplicated (principal) | CPT/HCPCS: 71271 ==

== ENCOUNTER 2025-05-16 09:56 | Outpatient (AMB) | payer MEDICARE, MEDICAID, SELFPAY ==
--- OUTSIDE RECORDS SUMMARY | 2023-12-15 08:15 | XMS_ITS ---
Author Organization [facility] Address [address] [place] [address] Care Team Providers Care Manager Critical Care Name Role Phone Laura Lott Unavailable [phone] Encounters Encounter Location Date Provider Diagnosis [facility] [address] [place] [address] 12/15/2023 Laura Lott Plan Of Treatment Next Appt Details Provider Name:Laura Lott, Chago 10/12/2025 02:30:00 PM, [address], [place], [address], Progress Notes * ENRRIQUE RICHARDSONDOB:1955 (69 yo F)Acc No.[id number]:12/15/2023 Patient: ENRRIQUE CHILDERS Provider: Ciaran Lott MD :1955 A ge:68 Y S ex:Female Date:12/15/2023 Address:[facility] [address], [place] Subjective: * Chief Complaints: * * Medical History: Objective: * Vitals: Assessment: Plan: * Treatment: * * Electronic signature of Laura Lott MD on 05/16/2025 at 10:55 AM EDT Sign off status: Pending * Provider: Ciaran Lott MD Date: 12/15/2023 Generated for Antoine villafana/Melissa/eTdoriansmitting on: 05/16/2025 10:55 AM EDT
--- OUTSIDE RECORDS SUMMARY | 2024-06-20 07:15 | XMS_ITS ---
Author Organization [facility] Address [address] [place] [address] Care Team Providers Care Crm Developer Name Role Phone Laura Lott Unavailable [phone] Encounters Encounter Location Date Provider Diagnosis [facility] [address] [place] [address] 06/20/2024 Laura Lott Plan Of Treatment Next Appt Details Provider Name:Laura Lott, Chago 10/12/2025 02:30:00 PM, [address], [place], [address], Progress Notes * ENRRIQUE RICHARDSONDOB:1955 (69 yo F)Acc No.[id number]:06/20/2024 Patient: ENRRIQUE CHILDERS Provider: Ciaran Lott MD :1955 A ge:68 Y S ex:Female Date:06/20/2024 Address:[facility] [address], [place] Subjective: * Chief Complaints: * * Medical History: Objective: * Vitals: Assessment: Plan: * Treatment: * * Electronic signature of Laura Lott MD on 05/16/2025 at 10:55 AM EDT Sign off status: Pending * Provider: Ciaran Lott MD Date: 08/20/2023 Generated for Antoine villafana/Melissa/Baudiliosmitting on: 0 05/16/2025 10:55 AM EDT
--- OUTSIDE RECORDS SUMMARY | 2024-08-11 06:45 | XMS_ITS ---
Author Organization [facility] Diabetes [facility] Address [address] [place] [address] Care Team Providers Care Saloon Keeper Name Role Phone Laura Lott Unavailable [phone] Encounters Encounter Location Date Provider Diagnosis [facility] Diabetes [facility] Metabolism [address] [place] [address] 08/11/2024 Laura Lott Plan Of Treatment Next Appt Details Provider Name:Laura Lott, Chago 10/12/2025 02:30:00 PM, [address] [facility] [facility], [place], [address], Progress Notes * ENRRIQUE RICHARDSONDOB:1955 (69 yo F)Acc No.[id number]:08/11/2024 Patient: ENRRIQUE CHILDERS Provider: Ciaran Lott MD :1955 A ge:69 Y S ex:Female Date:08/11/2024 Address:[facility] [address] Subjective: * Chief Complaints: * * Medical History: Objective: * Vitals: Assessment: Plan: * Treatment: * * Electronic signature of Laura Lott MD on 05/16/2025 at 10:55 AM EDT Sign off status: Pending * Provider: Ciaran Lott MD Date: 10/12/2023 Generated for Antoine villafana/Melissa/Baudiliosmitting on: 0 05/16/2025 10:55 AM EDT
--- OUTSIDE RECORDS SUMMARY | 2025-03-14 08:15 | XMS_ITS ---
Author Organization [facility] Address [address] [facility] [facility] [address] [place] [address] Care Team Providers Care Partner Name Role Phone Laura Lott Unavailable [phone] Encounters Encounter Location Date Provider Diagnosis [facility] [address] [facility] [address] [place] [address] 03/14/2025 Laura Lott Plan Of Treatment Next Appt Details Provider Name:Laura Lott, Chago 10/12/2025 02:30:00 PM, [address] [facility], [address], [place], [address], Progress Notes * ENRRIQUE RICHARDSONDOB:1955 (69 yo F)Acc No.[id number]:03/14/2025 Patient: ENRRIQUE CHILDERS Provider: Ciaran Lott MD :1955 A ge:69 Y S ex:Female Date:03/14/2025 Address:[facility] [address], [place] Subjective: * Chief Complaints: * * Medical History: Objective: * Vitals: Assessment: Plan: * Treatment: * * Electronic signature of Laura Lott MD on 05/16/2025 at 10:55 AM EDT Sign off status: Pending * Provider: Ciaran Lott MD Date: 03/14/2025 Generated for Antoine villafana/Melissa/eTdoriansmitting on: 0 05/16/2025 10:55 AM EDT
--- NOTE | 2025-05-16 10:04 | A.OFFPC_ITS ---
Vital Signs 05/16/25 10:06 Height 5 ft 2 in Weight 156 lb 2 oz BMI 28.6 BP 124/74 Blood Pressure Location Lt brachial Position Sitting Pulse 57 Pulse Source Pulse Oximeter Temp 97.1 F Temp Source Temporal Artery Scan Pulse Oximetry (%) 98 Oxygen Delivery Method Room Air Intake Visit Reasons: 3 Months Intake Note: Patient is here to follow up on DM, GERD, Polyarthralgia, HTN. Harness Worker Required: No Drug Safety Associate: Present Accompanied by: Daughter Allergies dulaglutide (From Trulicity) Allergy (Intermediate, Verified 05/16/25 10:43) Rash metformin (METFORMIN) Allergy (Intermediate, Verified 05/16/25 10:43) DIARRHEA, NAUSEA Penicillins (PENICILLINS) Allergy (Intermediate, Verified 05/16/25 10:43) RASH canagliflozin (Invokana) Allergy (Unknown, Verified 05/16/25 10:43) rash oxycodone Allergy (Verified 05/16/25 10:43) Unknown Medication List - Last Reconciled 05/16/25 by Esau Cuellar PA-C albuterol sulfate 2.5 mg (3 mL) inhalation Q6H PRN albuterol sulfate 90 mcg/actuation (Ventolin HFA) 2 inhalations inhalation QID PRN atorvastatin 40 mg PO DAILY 90 days calamine-zinc oxide 1 appl topical BID PRN 30 days cholecalciferol (vitamin D3) 25 mcg PO DAILY 90 days clonazepam 0.5 mg PO DAILY 30 days escitalopram oxalate 20 mg PO DAILY hydroxyzine HCl 25 mg PO BEDTIME 90 days lisinopril-hydrochlorothiazide 20-12.5 mg 1 tab PO DAILY 90 days loperamide 2 mg PO Q8H PRN 15 days naproxen sodium 220 mg PO BID PRN pantoprazole 40 mg PO DAILY@0630 90 days tizanidine 2 mg PO BEDTIME 30 days Tobacco use date assessed: 05/16/25 Fall risk assessment: No Falls in past year Last assessed Fall Risk: 05/16/25 Dental Screening Dental Screen Date: 01/13/25 HPI 3 Months HPI Details Patient is a 69 year-old female here today for follow-up visit ? Patient has a past history significant for type 2 diabetes,, Smoker, hypertension, hyperlipidemia, tobacco dependence, bipolar disorder, Chronic Knee pain status post total arthroplasty. Concerns-- Report noted having warty like lesions over her chest and back. She would like to see a computer network and systems engineer for removal.. She also reports having vaginal dryness lately likely secondary side effect from the hydroxyzine .. Type 2 diabetes: The patient's diabetes is currently well-controlled with an A1c of 5.5, despite not taking any medication. She has three boxes of Trulicity at home, which she has not been using since her diabetes is managed through diet. The patient was advised to hold onto the medication in case it is needed in the future. Patient interested in getting continuous glucose monitor. .. General pruritus: Continues on hydroxyzine daily which has reduced her pruritus. It is thought to be due to the Trulicity has a secondary effect causing general pruritus. Will hold off on Trulicity .. Tobacco dependency: Unfortunately smoking nearly a full pack of cigarettes daily and does understand she needs to quit. .. Hyperlipidemia: Most recent lipid panel showing elevated total cholesterol and LDL. She has been out of her medication for quite some time since moving back from [place]. She is willing to restart all of her original medication. [facility] Medical History (Updated 05/16/25 @ 11:01 by Esau Cuellar PA-C) Nicotine dependence, cigarettes, uncomplicated Aneurysm of middle cerebral artery Irritable bowel syndrome with diarrhea Insomnia Hearing loss HTN (hypertension) Dyslipidemia Asthma Chronic 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 Chronic pain of left knee Osteoarthritis of knees, bilateral Arthritis Back pain Vitamin D deficiency Anxiety Depression Surgical History History of surgery on left wrist History of surgery on right wrist History of meniscectomy of left knee History of total left knee replacement S/P placement of nerve stimulator History of surgery on wrist History of ear surgery History of hysterectomy History of colonoscopy H/O tubal ligation Family History Father Automobile accident Mother Hypertension Hyperlipidemia Diabetes Brother Diabetes Hyperlipidemia Sister Diabetes Hyperlipidemia Social History Household Members: Family and Children Housing: Apartment Do you presently have visiting nurse or other home services: No Alcohol intake: current Alcohol intake frequency: a few times a month Patient Tobacco Use Status: Current everyday Tobacco user Tobacco use type: Cigarette Cigarette Packs Per Day: 1 Cigarettes Per Day: 20 Years Smoked: 49 e-Cigarette/Vaping Use: Former Use Second Hand Smoke Exposure: Yes Advance Directives Date on File: 09/18/17 service: No Current occupational status: disabled Cognitive needs: Yes (Pt would like a cane due to her pain in her leg) Hearing needs: Yes (right ear hearing loss) Vision needs: Yes Questionnaire Thrive Questionnaire Date Thrive assessed: 01/09/25 I am a: Patient What is your living situation today?: I have a steady place to live Within the past 12 months, did the food you bought not last and you didn't have the money to get more?: Never true Within the past 12 months, did you worry whether your food would run out before you got money to buy more?: Never true Do you have trouble paying for medicines?: Yes Do you have trouble getting transportation to medical appointments?: Yes Do you have trouble paying your heating and electricity bill?: No Do you have trouble taking care of your child, family member or friend?: No Do you have trouble with day-to-day activities such as bathing, preparing meals, shopping, managing finances, etc.?: Yes Are you currently unemployed and looking for a job?: Yes Are you interested in more education?: No Currently or been in a relationship where the following occur: I choose not to answer THRIVE Score: 1 EVA-7 AMB Questionnaire EVA-7 Date EVA - 7 assessed: 01/13/25 Source: Developed by Drs. Hair Briscoe, Quin Bell, Ricci Burleson and colleagues, with an educational jim from [employer]. Review of Systems Const Denies headache(s) Eyes Denies loss of vision ENT Denies vertigo, Denies dizziness, Denies headache(s) and Denies sore throat Card Denies chest pain, Denies leg edema and Denies lightheadedness Resp Denies cough, Denies hemoptysis and Denies wheezing GI Denies abdominal pain, Denies melena, Denies constipation, Denies diarrhea and Denies vomiting Denies urinary frequency, Denies dysuria and Denies urinary urgency Musc Denies arthralgias, Denies joint swelling, Denies numbness and Denies tingling Neuro Denies Abnormal speech present, Denies behavioral changes, Denies vertigo, Denies dizziness, Denies headache(s), Denies loss of vision, Denies memory loss, Denies numbness and Denies tingling Psych Denies anxiety, Denies behavioral changes, Denies depression, Denies memory loss and Denies panic attacks Feliberto/Lymph Denies easy bleeding and Denies easy bruising Aller/Immun Denies wheezing Physical exam (Primary Care) Vital Signs: Last Vital Signs Temp 97.1 F 05/16/25 10:06 Pulse 57 05/16/25 10:06 BP 124/74 05/16/25 10:06 Pulse Ox 98 05/16/25 10:06 Oxygen Delivery Method Room Air 05/16/25 10:06 BMI result Body Mass Index 28.6 Tobacco/Smoking Status: Tobacco use Status Tobacco use date assessed 05/16/25 05/16/25 10:18 Patient Tobacco Use Status Current everyday Tobacco 05/16/25 10:18 Tobacco use type Cigarette 05/16/25 10:18 e-Cigarette/Vaping Use Former Use 05/16/25 10:18 Are you ready to quit: No Tobacco cessation counseling provided: Yes Items discussed: Nicotine replacement Relapse Prevention: discussed the importance of a supportive environment, discussed negative mood or depression after quitting, weight gain after smoking is common and discussed dietary, exercise and/or lifestyle changes Number of minutes spent counselin CPT code: 41515 - 4-10 Minutes Thrive Assessment: Date of Thrive Assessment Date Thrive assessed 01/09/25 05/16/25 10:18 Currently or been in a relationship where the following occur: I choose not to answer Const General: healthy appearing, no acute distress, alert and awake Nutritional Appearance: well nourished Orientation/consciousness: oriented to person, oriented to place and oriented to time [facility] Ears: TM's normal bilaterally General nose exam: Normal nasal mucous membranes and turbinates present Eyes Conjunctivae: conjunctivae normal Sclerae: sclerae normal Pupils: Equal, round and reactive pupils present Neck Neck: Yes no lymphadenopathy and Yes no JVD Thyroid: Thyroid normal Carotids: no bruits Resp Effort & Inspection: normal respiratory effort and not tachypneic Auscultation: no crackles, no rales, no rhonchi and no wheezes Cardio Rate: regular rate Rhythm: regular rhythm Heart sounds: no murmurs and normal S1 and S2 GI Palpation (GI): Soft to palpation, nontender, no hepatomegaly and no splenomegaly Auscultation: normal bowel sounds Skin General skin exam: no rashes or lesions noted and dry skin Neuro General: oriented to person, oriented to place and oriented to time Cranial nerves: Yes Equal, round and reactive pupils present Speech: No Abnormal speech present Gait exam (Neuro): Normal gait present Motor exam (neuro): no tremor noted Extrem Right upper extremity: full ROM Left upper extremity: full ROM Right lower extremity: full ROM; no edema Left lower extremity: full ROM; no edema Psych Mental Status: mental status grossly normal Speech and movement: Normal speech and movement present Affect: normal affect Attitude: cooperative Thought process: Normal thought process present Results AMB Hemoglobin A1c AMB Hemoglobin A1c 5.5 % Last Edit by KALEY Swann on 05/16/25 10:36 Results Reviewed Results Reviewed: Laboratory Last Values Hgb A1c (Clinic) 5.5 % (4.0-6.0) 05/16/25 10:03 Coding Level of Care Code Est Pt Level 4 (65977) Diagnoses Type 2 diabetes mellitus without complication, with long-term current use of insulin E11.9; Z79.4 Diabetes mellitus complication status: without complication Diabetes mellitus longterm insulin use: with middle or intermediate school principal use Verruca B07.9 Bipolar depression F31.9 Tobacco dependence F17.200 Generalized pruritus L29.9 Additional Codes Vital Signs *Quality* - CPT code: 61664 - 4-10 Minutes ([id number]) Assessment & Plan Assessment & Plan (1) DMII (diabetes mellitus, type 2): Code(s): E11.9 - Type 2 diabetes mellitus without complications Category: Medical Qualifiers: Diabetes mellitus complication status: without complication Diabetes mellitus middle or intermediate school principal insulin use: with middle or intermediate school principal use Qualified Code(s): E11.9 - Type 2 diabetes mellitus without complications; Z79.4 - [facility]CI (current) use of insulin Plan: Patient's type 2 diabetes well controlled with diet at this time. Today's A1c of 5.5. She has not been taking any GLP 1 due to presumed side effect of itchiness. She will continue to control her diabetes with diet. Goal A1c is to remain below 7.0 (2) Verruca: Code(s): B07.9 - Viral wart, unspecified Category: Medical Plan: The patient was advised to use enoy-kei-csveidf mole remover for skin warts or consider a dermatology referral if the condition persists or worsens. (3) Bipolar depression: Code(s): F31.9 - Bipolar disorder, unspecified Category: Medical Plan: Patient continues to follow a psychiatrist and continues on mental health medication with decent affect on her mental health. (4) Tobacco dependence: Code(s): F17.200 - Nicotine dependence, unspecified, uncomplicated Category: Medical Plan: Patient does understand she needs to quit smoking, has found it very difficult to quit. She has been smoking over the last 40 years (5) Generalized pruritus: Code(s): L29.9 - Pruritus, unspecified Category: Medical Plan: Since stopping Trulicity her itchiness has reduced. She continues to the hydroxyzine 25 mg daily. Advised on reducing her hydroxyzine and transitioned to Zyrtec to see if it will reduce side effect of vaginal dryness. Orders: Orders AMB Hemoglobin A1c Today E11.9 - Type 2 diabetes mellitus without complications, Z79.4 - [facility]CI (current) use of insulin Vitamin D 25-OH Total Today E55.9 - Vitamin D deficiency, unspecified Comprehensive [place]. Panel Fast Today I10 - Essential (primary) hypertension Lipid Panel Today E78.5 - Hyperlipidemia, unspecified Microalbumin, Random (w Creat) Today I10 - Essential (primary) hypertension Complete Blood Count no Diff Today I10 - Essential (primary) hypertension Referrals Dermatology Referral B07.9 - Viral wart, unspecified Medications: New blood-glucose sensor (FreeStyle Piyush 2 Plus Sensor device) As directed 2 ea 3RF E11.9 - Type 2 diabetes mellitus without complications, Z79.4 - terminal operator (current) use of insulin flash glucose scanning reader (FreeStyle Piyush 2 [place]) As directed 1 ea 1RF E11.9 - Type 2 diabetes mellitus without complications, Z79.4 - terminal operator (current) use of insulin montelukast 10 mg PO BEDTIME 90 tabs 1RF 90 days J45.21 - Mild intermittent asthma with (acute) exacerbation Refilled cholecalciferol (vitamin D3) 25 mcg PO DAILY 90 caps 1RF 90 days E11.9 - Type 2 diabetes mellitus without complications, Z79.4 - [facility]CI (current) use of insulin
[2025-05-16 10:06] VITALS: BP 124/74; PULSE 57; TEMP 36.2; O2SAT 98; BMI 28.6
--- OUTSIDE RECORDS SUMMARY | 2025-05-16 10:56 | XMS_ITS | Patient Health Record ---
Author Organization [facility] Address [address] [facility] [address] [place] [address] Care Team Providers Care Alternative Dispute Resolution Mediator Name Role Phone Laura Lott Unavailable [phone] Reason For Referral No Information Plan Of Treatment Next Appt Details Provider Name:Laura Lott, 0 10/12/2025 02:30:00 PM, [address] [facility], [place], [address],
--- OUTSIDE RECORDS SUMMARY | 2025-05-16 10:56 | XMS_ITS | Patient Health Record ---
Author Organization [facility] Address [address] [place] [address] Care Team Providers Care Sprinkler Tender Name Role Phone Lilian (RETIRED) Winston ARCE Primary Care Provide r Unavailable Hair Ghosh Unavailable [phone] Reason For Referral No Information Plan Of Treatment No Information Insurance Providers Payer Name Payer Address Payer Phone Subscriber Number Group Number Insured Name Patient Relationship to Insured Coverage Start Date Coverage End Date [place] OF [place] [address] [place] [id number] ENRRIQUE RICHARDSON Self - patient is the insured MEDICAID OF [facility] [address] [place] [address] [phone] [id number] ENRRIQUE RICHARDSON Self - patient is the insured
== END 2025-05-16 11:01 | disposition home or self-care (01) ==
PROVIDERS: PCP Physician Assistant; Visit Provider Physician Assistant
DX: E11.9 Type 2 diabetes mellitus without complications (principal); Z79.4 Long term (current) use of insulin; F31.9 Bipolar disorder, unspecified; B07.9 Viral wart, unspecified; F17.200 Nicotine dependence, unspecified, uncomplicated; L29.9 Pruritus, unspecified

== ENCOUNTER → 2025-05-16 09:56 | Outpatient (BNVA) | payer MEDICARE, MEDICAID, SELFPAY | PROVIDERS: PCP Physician Assistant; Visit Provider Physician Assistant | DX: E11.9 Type 2 diabetes mellitus without complications (principal); B07.9 Viral wart, unspecified; F31.9 Bipolar disorder, unspecified; L29.9 Pruritus, unspecified; F17.200 Nicotine dependence, unspecified, uncomplicated; Z71.6 Tobacco abuse counseling; Z79.4 Long term (current) use of insulin | CPT/HCPCS: 83036; 99212 ==

== ENCOUNTER 2025-06-02 09:14 | Outpatient (REF) | payer OTHER, SELFPAY ==
--- OUTSIDE RECORDS SUMMARY | 2023-12-15 08:15 | XMS_ITS ---
Author Organization [facility] Address [address] [place] [address] Care Team Providers Care Pet Adoption Counselor Name Role Phone Laura Lott Unavailable [phone] Encounters Encounter Location Date Provider Diagnosis [facility] [address] [facility] [address] [place] [address] 12/15/2023 Laura Lott Plan Of Treatment Next Appt Details Provider Name:Laura Lott, Chago 10/12/2025 02:30:00 PM, [address] [facility], [place], [address], Progress Notes * ENRRIQUE RICHARDSONDOB:1955 (69 yo F)Acc No.[id number]:12/15/2023 Patient: ENRRIQUE CHILDERS Provider: Ciaran Lott MD :1955 A ge:68 Y S ex:Female Date:12/15/2023 Address:[facility] [address], [place] Subjective: * Chief Complaints: * * Medical History: Objective: * Vitals: Assessment: Plan: * Treatment: * * Electronic signature of Laura Lott MD on 06/02/2025 at 10:14 AM EDT Sign off status: Pending * Provider: Ciaran Lott MD Date: 0 12/15/2023 Generated for Antoine villafana/Melissa/Mariyaitting on: 1 10:14 AM EDT
--- OUTSIDE RECORDS SUMMARY | 2024-06-20 07:15 | XMS_ITS ---
Author Organization [facility] Address [address] [place] [address] Care Team Providers Care Wig Dresser Name Role Phone Laura Lott Unavailable [phone] Encounters Encounter Location Date Provider Diagnosis [facility] [address] [place] [address] 06/20/2024 Laura Lott Plan Of Treatment Next Appt Details Provider Name:Laura Lott, Chago 10/12/2025 02:30:00 PM, [address] [facility] [facility] [address], [place], [address], Progress Notes * ENRRIQUE RICHARDSONDOB:1955 (69 yo F)Acc No.[id number]:06/20/2024 Patient: ENRRIQUE CHILDERS Provider: Ciaran Lott MD :1955 A ge:68 Y S ex:Female Date:06/20/2024 Address:[facility] [address] Subjective: * Chief Complaints: * * Medical History: Objective: * Vitals: Assessment: Plan: * Treatment: * * Electronic signature of Laura Lott MD on 06/02/2025 at 10:13 AM EDT Sign off status: Pending * Provider: Ciaran Lott MD Date: 08/20/2023 Generated for Antoine villafana/Melissa/Mariyaitting on: 10:13 AM EDT
--- OUTSIDE RECORDS SUMMARY | 2024-08-11 06:45 | XMS_ITS ---
Author Organization [facility] Diabetes [facility] Met[facility] Address [address] [place] [address] Care Team Providers Care Detention Sergeant Name Role Phone Laura Lott Unavailable [phone] Encounters Encounter Location Date Provider Diagnosis [facility] Diabetes [facility] Met[facility] [address] [facility] [place] [address] 08/11/2024 Laura Lott Plan Of Treatment Next Appt Details Provider Name:Laura Lott, Chago 10/12/2025 02:30:00 PM, [address] [facility], [place], [address], Progress Notes * ENRRIQUE RICHARDSONDOB:1955 (69 yo F)Acc No.[id number]:08/11/2024 Patient: ENRRIQUE CHILDERS Provider: Ciaran Lott MD :1955 A ge:69 Y S ex:Female Date:08/11/2024 Address:[facility] [address], [place] Subjective: * Chief Complaints: * * Medical History: Objective: * Vitals: Assessment: Plan: * Treatment: * * Electronic signature of Laura Lott MD on 06/02/2025 at 10:14 AM EDT Sign off status: Pending * Provider: Ciaran Lott MD Date: 10/12/2023 Generated for Antoine villafana/Melissa/Mariyaitting on: 10:14 AM EDT
--- OUTSIDE RECORDS SUMMARY | 2025-03-14 08:15 | XMS_ITS ---
Author Organization [facility] Address [address] [place] [address] Care Team Providers Care Blacksmith Helper Name Role Phone Laura Lott Unavailable [phone] Encounters Encounter Location Date Provider Diagnosis [facility] [address] [place] [address] 03/14/2025 Laura Lott Plan Of Treatment Next Appt Details Provider Name:Laura Lott, Chago 10/12/2025 02:30:00 PM, [address], [address], [place], [address], Progress Notes * ENRRIQUE RICHARDSONDOB:1955 (69 yo F)Acc No.[id number]:03/14/2025 Patient: ENRRIQUE CHILDERS Provider: Ciaran Lott MD :1955 A ge:69 Y S ex:Female Date:03/14/2025 Address:[facility] [address], [place] Subjective: * Chief Complaints: * * Medical History: Objective: * Vitals: Assessment: Plan: * Treatment: * * Electronic signature of Laura Lott MD on 06/02/2025 at 10:14 AM EDT Sign off status: Pending * Provider: Ciaran Lott MD Date: 0 03/14/2025 Generated for Antoine villafana/Melissa/Mariyaitting on: 1 10:14 AM EDT
[2025-06-02 10:00] LABS: Hematocrit 38.2 % (37.0-47.0); Hemoglobin 12.5 g/dl (12.0-16.0); Mean Corpuscular HGB Conc 32.7 g/dl (31.0-35.0); Mean Corpuscular Hemoglobin 29.3 pg (27.0-33.0); Mean Corpuscular Volume 89.5 fL (80.0-98.0); NRBC Abs Auto 0.000 X10*3/uL (0.0-0.012); NRBC Pct Auto 0.0 /100WBC (0.0-0.2); Platelet Count 191 X10*3/uL (160-400); Red Blood Count 4.27 X10*6/uL (4.20-5.50); White Blood Count 11.5 X10*3/uL (4.8-10.8)
--- OUTSIDE RECORDS SUMMARY | 2025-06-02 10:13 | XMS_ITS | Patient Health Record ---
Author Organization [facility] Address [address] [facility] [address] [place] [address] Care Team Providers Care Supervisor Powdered Metal Name Role Phone Laura Lott Unavailable [phone] Reason For Referral No Information Plan Of Treatment Next Appt Details Provider Name:Laura Lott, 0 10/12/2025 02:30:00 PM, [address] [facility] [address], [place], [address],
--- OUTSIDE RECORDS SUMMARY | 2025-06-02 10:13 | XMS_ITS | Patient Health Record ---
Author Organization [facility] Address [address] [place] [address] Care Team Providers Care Brand Development Manager Name Role Phone Lilian (RETIRED) Winston ARCE Primary Care Provide r Unavailable Hair Ghosh Unavailable [phone] Reason For Referral No Information Plan Of Treatment No Information Insurance Providers Payer Name Payer Address Payer Phone Subscriber Number Group Number Insured Name Patient Relationship to Insured Coverage Start Date Coverage End Date [place] OF [place] [address] [place] [address] [phone] [id number] ENRRIQUE RICHARDSON Self - patient is the insured MEDICAID OF [facility] [address] [place] [address] [id number] ENRRIQUE RICHARDSON Self - patient is the insured
[2025-06-02 11:51] LABS: Microalbum/Creatinine Ratio Ur 10.7 ug/mg cr (<30)
[2025-06-02 12:45] LABS: Anion Gap 14 (12-20)
[2025-06-02 12:50] LABS: Alanine Aminotransferase 21 U/L (0-31); Albumin Level 4.4 g/dL (3.5-5.0); Alkaline Phosphatase 97 U/L (39-117); Aspartate Amino Transferase 20 U/L (5-31); Blood Urea Nitrogen 21 mg/dL (9-16); Calcium 10.1 mg/dL (8.4-10.2); Carbon Dioxide 24 mmol/L (22-29); Chloride 106 mmol/L (96-108); Cholesterol 128 mg/dL (<200); Estimated Glomerular Filt Rate 43; HDL Cholesterol 42 mg/dL (>40); Potassium 4.3 mmol/L (3.3-5.1); Sodium 140 mmol/L (135-145); Total Protein 7.0 g/dL (6.5-8.0); Triglycerides 141 mg/dL (<150)
== END 2025-06-02 09:15 | disposition home or self-care (01) ==
LOC: HO.LAB 09:14
PROVIDERS: PCP Physician Assistant; Visit Provider Physician Assistant
DX: I10 Essential (primary) hypertension (principal); E55.9 Vitamin D deficiency, unspecified; E78.5 Hyperlipidemia, unspecified
CPT/HCPCS: 36415; 80053; 80061; 82043; 82306; 82570; 85027